=== PATIENT | female | born 2000 | race Two or more races ===

== ENCOUNTER 2019-08-21 11:30 | Emergency (ER) | payer OTHER, SELFPAY ==
[2019-08-21] VITALS (15 sets, daily range): BP systolic 111–198; BP diastolic 55–102; PULSE 79–120; RESP 16–22; TEMP 36.6–37.2; O2SAT 94–99; BMI 45.6
--- NOTE | 2019-08-21 11:49 | ECG_ITS ---
APPROVED REPORT Exam: Resting ECG HR:114 bpm ECG Measurements Heart Rate 114 AXES [place] 134 P 38 QRSd 88 QRS 36 QT 332 T 13 QTc 457 <Conclusion> Sinus tachycardia Otherwise normal ECG Electronically signed by : Jorge Falcon, 08/22/2019 17:17:27
--- NOTE | 2019-08-21 11:51 | HMH.EDGENADL ---
ED Disposition Clinical Impression: Depressive disorder Drug overdose, multiple drugs Qualifiers: Encounter type: initial encounter Injury intent: intentional self-harm Qualified Code(s): T50.912A - Poisoning by multiple unspecified drugs, medicaments and biological substances, intentional self-harm, initial encounter Disposition: Xfer Psychiatric Hosp Condition on Discharge: Good Referrals: Provider,Referral, [Primary Care Provider] - - Critical Care Critical Care Time: No Attestation: On 08/21/19, the high probability of a clinically significant, sudden or life threatening deterioration of the following system(s) required my full and direct attention, intervention and personal management. The time I documented below is in addition to time spent performing reported procedures but includes the following listed in this critical care notation. Medical Decision Making - Joaquin Inquiry Pt receiving controlled substance: No Vital Signs: 08/21/19 11:31 08/21/19 12:29 08/21/19 12:55 Temperature 98.9 F Temperature Source Oral Pulse Rate [Left Radial] 120 H 98 H 111 H Respiratory Rate 18 16 16 Blood Pressure [Right Arm] 124/91 H 198/102 H 124/81 Blood Pressure Mean [Right Arm] 102 134 95 Blood Pressure Source [Right Arm] Automatic Cuff Automatic Cuff Blood Pressure Position [Right Arm] Sitting Supine Supine 02 Sat by Pulse Oximetry 99 97 97 Oxygen Delivery Method Room Air Room Air Room Air 08/21/19 13:28 08/21/19 13:55 08/21/19 14:35 Temperature Temperature Source Pulse Rate [Left Radial] 92 H 102 H 93 H Respiratory Rate 16 20 16 Blood Pressure [Right Arm] 152/96 H 122/55 L 122/55 L Blood Pressure Mean [Right Arm] 114 77 77 Blood Pressure Source [Right Arm] Automatic Cuff Automatic Cuff Automatic Cuff Blood Pressure Position [Right Arm] Supine Supine Supine 02 Sat by Pulse Oximetry 97 95 94 L Oxygen Delivery Method Room Air Room Air Room Air 08/21/19 15:00 08/21/19 15:30 08/21/19 16:00 Temperature Temperature Source Pulse Rate [Left Radial] 100 H 93 H 92 H Respiratory Rate 22 20 Blood Pressure [Right Arm] 133/78 124/78 119/75 Blood Pressure Mean [Right Arm] 96 93 89 Blood Pressure Source [Right Arm] Automatic Cuff Automatic Cuff Blood Pressure Position [Right Arm] Supine Supine 02 Sat by Pulse Oximetry 98 97 97 Oxygen Delivery Method Room Air Room Air Room Air 08/21/19 16:30 08/21/19 17:00 08/21/19 17:28 Temperature Temperature Source Pulse Rate [Left Radial] 86 93 H 98 H Respiratory Rate 22 20 16 Blood Pressure [Right Arm] 111/72 115/66 115/66 Blood Pressure Mean [Right Arm] 85 82 82 Blood Pressure Source [Right Arm] Automatic Cuff Automatic Cuff Automatic Cuff Blood Pressure Position [Right Arm] Supine Supine Supine 02 Sat by Pulse Oximetry 95 95 96 Oxygen Delivery Method Room Air Room Air Room Air 08/21/19 18:00 08/21/19 18:30 Temperature Temperature Source Pulse Rate [Left Radial] 87 86 Respiratory Rate 16 Blood Pressure [Right Arm] 126/89 126/89 Blood Pressure Mean [Right Arm] 101 101 Blood Pressure Source [Right Arm] Automatic Cuff Automatic Cuff Blood Pressure Position [Right Arm] Supine Supine 02 Sat by Pulse Oximetry 95 Oxygen Delivery Method Room Air - Lab Data Lab Results 08/21/19 12:00: WBC 11.5, RBC 4.53, Hgb 13.2, Hct 38.3, MCV 84.5, MCH 29.2, MCHC 34.6, RDW 13.4, Plt Count 203, MPV 8.9, Neut % (Auto) 59.2, Lymph % (Auto) 32.5, [place] % (Auto) 6.7, Eos % (Auto) 0.6, Baso % (Auto) 1.0, Neut # (Auto) 6.8, Lymph # (Auto) 3.7, [place] # (Auto) 0.8, Eos # (Auto) 0.1, Baso # (Auto) 0.1 08/21/19 12:00: Sodium 138, Potassium 4.0, Chloride 103, Carbon Dioxide 26, Anion Gap 13.0, BUN 11, Creatinine 0.50 L, Estimated Creat Clear 183, Estimated GFR 159, Est GFR ( Amer) 192, Glucose 101 H, Calcium 10.0, Total Bilirubin 0.5, AST 32, ALT 29, Alkaline Phosphatase 50, Total Protein 7.9, Albumin 4.4, Globulin 3.5 H, Albumin/Globulin Ratio 1.3, Salicylates
[2019-08-21 12:19] LABS: Chloride 103 mmol/L (98-107); Sodium 138 mmol/L (136-145)
[2019-08-21 12:22] LABS: Alanine Aminotransferase 29 U/L (12-78); Albumin Level 4.4 g/dl (3.5-5.0); Albumin/Globulin Ratio 1.3 (1.1-1.8); Alkaline Phosphatase 50 U/L (38-126); Aspartate Amino Transferase 32 U/L (14-36); Bilirubin,Total 0.5 mg/dl (0.2-1.3); Blood Urea Nitrogen 11 mg/dl (7-17); Carbon Dioxide 26 mmol/L (22.0-30.0); Creatinine Clearance Estimated 183 mL/min (50-200); Estimated Glomerular Filt Rate 159 ml/min (>60); GFR (African American) 192 ML/MIN (>60); Globulin 3.5 g/dL (1.3-3.2); Glucose 101 mg/dl (74-100); Total Protein,Serum 7.9 g/dl (6.3-8.2)
[2019-08-21 12:23] LABS: Acetaminophen < 10 ug/ml (10-30); Ethyl Alcohol < 10 mg/dl (0-10); Salicylate < 1.0 mg/dL (2.0-20.0)
[2019-08-21 12:26] LABS: Basophils # 0.1 K/mm3 (0-0.2); Eosinophils # 0.1 K/mm3 (0.0-0.4); Eosinophils % 0.6 % (0.1-12.0); Hematocrit 38.3 % (37.0-47.0); Hemoglobin 13.2 g/dL (12.2-16.2); Lymphocytes # 3.7 K/mm3 (0.7-4.5); Lymphocytes % 32.5 % (10-50); Mean Corpuscular HGB Conc 34.6 g/dL (31.8-35.4); Mean Corpuscular Hemoglobin 29.2 pg (27.0-31.2); Mean Corpuscular Volume 84.5 fl (81-99); Mean Platelet Volume 8.9 fl (7.4-10.4); Monocytes # 0.8 K/mm3 (0.1-1.0); Monocytes % 6.7 % (1.7-9.3); Neutrophils # 6.8 K/mm3 (1.8-7.8); Neutrophils % 59.2 % (37.0-80.0); Platelet Count 203 K/mm3 (142-424); Red Blood Count 4.53 M/mm3 (4.20-5.40); Red Cell Distribution Width 13.4 % (11.5-17.5); White Blood Count 11.5 K/mm3 (4.5-13.0)
[2019-08-21 12:46] LABS: Microscopic, Urine URINE MICROSCOPIC (MICROSCOPIC)
[2019-08-21 12:51] LABS: Appearance,Urine CLEAR (Clear); Bilirubin,Urine Negative (Negative); Blood, Urine TRACE-I (Negative); Color,Urine YELLOW (Yellow); Glucose,Urine (UA) Negative (Negative); Ketones,Urine Negative (Negative); Leukocyte Esterase,Urine 1+ (Negative); Nitrate,Urine Negative (Negative); Protein,Urine Negative (Negative); Urobilinogen,Urine 0.2 EU/dl (0.2)
[2019-08-21 12:52] LABS: Urine Pregnancy, HCG Qual. Negative (Negative)
[2019-08-21 13:00] LABS: Benzodiazepines Screen,Urine Negative ng/ml (<200)
[2019-08-21 13:01] LABS: Amphetamine/Metha Screen,Urine Negative ng/ml (<1000)
[2019-08-21 13:02] LABS: Barbiturates Screen,Urine Negative ng/ml (<200); Methadone Screen,Urine Negative ng/ml (<300)
[2019-08-21 13:03] LABS: Cannabinoid Screen,Urine Negative ng/ml (<50)
[2019-08-21 13:04] LABS: Cocaine Screen,Urine Negative ng/ml (<300); Opiate Screen,Urine Negative ng/ml (<300)
[2019-08-21 13:05] LABS: Phencyclidine Screen,Urine Negative ng/ml (<25)
--- NOTE | 2019-08-21 13:05 | PC.NURSE ---
spoke with alex at poison control. due to patient consuming meds approx 12 hours ago, no recommendations at this time other than psych assist and eval.
[2019-08-21 13:14] LABS: Bacteria,Urine Trace /lpf
--- NOTE | 2019-08-21 13:15 | PC.NURSE ---
notified the [facility] of request for zoom assessment. the [facility] states they will call around 2 pm today for a phone assessment.
--- NOTE | 2019-08-21 14:00 | PC.NURSE ---
the [facility] calls and states they are trying to find an inspecting and testing lead hand and they will call back for assessment.
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
--- NOTE | 2019-08-21 16:55 | PC.NURSE ---
called the [facility] to check on status of eval. the [facility] states that they have been unsuccessful in finding their own social media senior associate and they are not allowed to use ours. the [facility] has no further insight or recommendation concerning patient care/treatment. dr corona notified.
--- NOTE | 2019-08-21 17:10 | PC.NURSE ---
report called to shannan, receiving rn at [facility].
--- NOTE | 2019-08-21 17:19 | PC.NURSE ---
per dr corona patient is medically cleared. pt is willing to report to [facility] for voluntary evaluation. dispatch notified of need for transportation per dr corona request.
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
== END 2019-08-21 18:55 ==
PROVIDERS: Emergency Provider Emergency Medicine
DX: F32.9 Major depressive disorder, single episode, unspecified (principal); T42.4X2A Poisoning by benzodiazepines, intentional self-harm, initial encounter; T46.6X2A Poisoning by antihyperlipidemic and antiarteriosclerotic drugs, intentional self-harm, initial encounter; Y92.009 Unspecified place in unspecified non-institutional (private) residence as the place of occurrence of the external cause
CPT/HCPCS: 80053; 80305; 80329; 81001; 81025; 85025; 87086; 87088; 87186; 93005; 99284

== ENCOUNTER 2019-12-15 11:13 | Emergency (ER) | payer OTHER, SELFPAY ==
[2019-12-15 11:20] VITALS: BP 132/90; PULSE 76; RESP 18; TEMP 36.8; O2SAT 97; BMI 42.5
--- NOTE | 2019-12-15 11:23 | HMH.EDGENADL ---
ED Disposition Clinical Impression: Viral illness Disposition: Home, Self-Care Condition on Discharge: Good Instructions: DI for Vomiting -- Adult, DI for Fever (Symptom) -- Adult Additional Instructions: Call back to the emergency room in 2 hours for your COVID test result. Off work for 2 days. Zofran as needed for nausea and vomiting. Acetaminophen for fever. Aloe up with primary care provider if not improved in 2 to 3 days. Prescriptions: Ondansetron [Zofran 4mg ODT] 4 mg PO TIDP PRN #10 tab.rapdis PRN Reason: Nausea And Vomiting Prescription Printed Referrals: PCP,No [Primary Care Provider] - - Critical Care Critical Care Time: No Attestation: On 12/15/19, the high probability of a clinically significant, sudden or life threatening deterioration of the following system(s) required my full and direct attention, intervention and personal management. The time I documented below is in addition to time spent performing reported procedures but includes the following listed in this critical care notation. Medical Decision Making - Joaquin Inquiry Pt receiving controlled substance: No Vital Signs: 12/15/19 11:20 12/15/19 11:43 12/15/19 12:13 Temperature 98.2 F Temperature Source Oral Pulse Rate [Right Radial] 76 88 83 Respiratory Rate 18 18 20 Blood Pressure [Right Arm] 132/90 136/83 111/88 Blood Pressure Mean [Right Arm] 104 100 95 Blood Pressure Source [Right Arm] Automatic Cuff Automatic Cuff Automatic Cuff Blood Pressure Position [Right Arm] Sitting Sitting Sitting 02 Sat by Pulse Oximetry 97 96 97 Oxygen Delivery Method Room Air Room Air Room Air 12/15/19 12:30 Temperature Temperature Source Pulse Rate [Right Radial] 84 Respiratory Rate 20 Blood Pressure [Right Arm] 124/68 Blood Pressure Mean [Right Arm] 86 Blood Pressure Source [Right Arm] Automatic Cuff Blood Pressure Position [Right Arm] Sitting 02 Sat by Pulse Oximetry 98 Oxygen Delivery Method Room Air - Lab Data Lab Results 12/15/19 11:25: WBC 7.7, RBC 4.92, Hgb 14.7, Hct 41.6, MCV 84.6, MCH 29.9, MCHC 35.3, RDW 13.0, Plt Count 201, MPV 8.8, Neut % (Auto) 47.7, Lymph % (Auto) 45.0, [place] % (Auto) 4.8, Eos % (Auto) 2.2, Baso % (Auto) 0.3, Neut # (Auto) 3.7, Lymph # (Auto) 3.5, [place] # (Auto) 0.4, Eos # (Auto) 0.2, Baso # (Auto) 0.0 12/15/19 11:25: Urine HCG, Qual Negative 12/15/19 11:25: Sodium 140, Potassium 4.2, Chloride 103, Carbon Dioxide 26, Anion Gap 15.2 H, BUN 16, Creatinine 0.40 L, Estimated Creat Clear 243, Estimated GFR 203, Est GFR ( Amer) 246, Glucose 111 H, Calcium 9.7, Total Bilirubin 0.5, AST 40 H, ALT 37, Alkaline Phosphatase 55, Total Protein 8.4 H, Albumin 4.6, Globulin 3.8 H, Albumin/Globulin Ratio 1.2 12/15/19 11:42: Urine Color Yellow, Urine Appearance Clear, Urine pH 6.0, Ur Specific [place] 1.025, Urine Protein Negative, Urine Glucose (UA) Negative, Urine Ketones Negative, Urine Blood Negative, Urine Nitrate Negative, Urine Bilirubin Negative, Urine Urobilinogen 0.2, Ur Leukocyte Esterase Negative, Urine RBC None, Urine WBC 3-5, Ur Squamous Epith Cells 5-10, Urine Bacteria 1+ 12/15/19 11:45: Influenza Type A Ag Negative, Influenza Type B Ag Negative 12/15/19 11:45: Group A Strep Rapid Negative Result diagrams: 12/15/19 11:25 12/15/19 11:25 Orders (Tests/Meds): ORDERS Category Date Time Status Chest XR 2 view (NOT portable) [XR chest 2V] Stat Exams 12/15/19 11:28 Taken COVID [Coronavirus 19 Swab (OUTPT)] Routine Lab 12/15/19 11:45 Received Strep Screen Confirmation Stat Micro 12/15/19 11:45 Received - Radiology Data #1 Image(s): Chest Image Reviewed: Yes I reviewed the patient's radiology image Preliminary Findings: Normal/NAD General Adult HPI - General Stated complaint: vomiting fever Time Seen by Provider: 12/15/19 11:23 - History of Present Illness HPI narrative: 2-day history of fever and vomiting. Also has rhinorrhea, sore throat, and cough. Cesar
--- NOTE | 2019-12-15 11:28 | XR_ITS ---
PROCEDURE: XR CHEST 2V CLINICAL HISTORY: cough, fever COMPARISON: CR XR CHEST 2V from 02/18/2019 FINDINGS: The cardiomediastinal silhouette and pulmonary vascularity are within normal limits. The lungs are clear without infiltrates, suspicious nodules, or pleural effusions. No acute bony abnormalities. IMPRESSION: No acute findings. Dictated by: Dr. Roberto Anderson MD 12/15/2019 13:52 Dr. Roberto Anderson MD in [facility] 12/15/2019 13:52
[2019-12-15 11:41] LABS: Basophils % 0.3 % (0.1-2.0); Eosinophils # 0.2 K/mm3 (0.0-0.4); Eosinophils % 2.2 % (0.1-12.0); Hematocrit 41.6 % (37.0-47.0); Hemoglobin 14.7 g/dL (12.2-16.2); Lymphocytes # 3.5 K/mm3 (0.7-4.5); Mean Corpuscular HGB Conc 35.3 g/dL (31.8-35.4); Mean Corpuscular Hemoglobin 29.9 pg (27.0-31.2); Mean Corpuscular Volume 84.6 fl (81-99); Mean Platelet Volume 8.8 fl (7.4-10.4); Monocytes # 0.4 K/mm3 (0.1-1.0); Monocytes % 4.8 % (1.7-9.3); Neutrophils # 3.7 K/mm3 (1.8-7.8); Neutrophils % 47.7 % (37.0-80.0); Platelet Count 201 K/mm3 (142-424); Red Blood Count 4.92 M/mm3 (4.20-5.40); White Blood Count 7.7 K/mm3 (4.5-13.0)
[2019-12-15 11:42] LABS: Chloride 103 mmol/L (98-107); Sodium 140 mmol/L (136-145)
[2019-12-15 11:43] VITALS: BP 136/83; PULSE 88; RESP 18; O2SAT 96
[2019-12-15 11:43] LABS: Potassium 4.2 mmoL/L (3.5-5.1)
[2019-12-15 11:45] LABS: Alanine Aminotransferase 37 U/L (12-78); Albumin Level 4.6 g/dl (3.5-5.0); Albumin/Globulin Ratio 1.2 (1.1-1.8); Alkaline Phosphatase 55 U/L (38-126); Anion Gap 15.2 mEq/L (5-15); Aspartate Amino Transferase 40 U/L (14-36); Bilirubin,Total 0.5 mg/dl (0.2-1.3); Blood Urea Nitrogen 16 mg/dl (7-17); Calcium 9.7 mg/dl (8.4-10.2); Carbon Dioxide 26 mmol/L (22.0-30.0); Creatinine Clearance Estimated 243 mL/min (50-200); Estimated Glomerular Filt Rate 203 ml/min (>60); GFR (African American) 246 ML/MIN (>60); Globulin 3.8 g/dL (1.3-3.2); Glucose 111 mg/dl (74-100); Total Protein,Serum 8.4 g/dl (6.3-8.2)
[2019-12-15 11:45] LABS: Microscopic, Urine URINE MICROSCOPIC (MICROSCOPIC)
[2019-12-15 11:46] LABS: Appearance,Urine CLEAR (Clear); Bilirubin,Urine Negative (Negative); Blood, Urine Negative (Negative); Color,Urine YELLOW (Yellow); Glucose,Urine (UA) Negative (Negative); Ketones,Urine Negative (Negative); Leukocyte Esterase,Urine Negative (Negative); Nitrate,Urine Negative (Negative); Protein,Urine Negative (Negative); Specific Gravity, Urine 1.025 (1.005-1.030); Urobilinogen,Urine 0.2 EU/dl (0.2)
--- NOTE | 2019-12-15 11:47 | PC.NURSE ---
dairy equipment mechanic service on Ipad used for communication with pt.
[2019-12-15 11:53] LABS: Urine Pregnancy, HCG Qual. Negative (Negative)
[2019-12-15 12:00] LABS: Bacteria,Urine 1+ /lpf
[2019-12-15 12:00] LABS: Strep Scrn Group A (Rapid) Negative (Negative)
--- NOTE | 2019-12-15 12:12 | PC.NURSE ---
PT GOING FOR CHEST X RAY
[2019-12-15 12:13] VITALS: BP 111/88; PULSE 83; RESP 20; O2SAT 97
[2019-12-15 12:30] VITALS: BP 124/68; PULSE 84; RESP 20; O2SAT 98
[2019-12-15 13:22] VITALS: BP 124/68; PULSE 82; RESP 18; TEMP 36.8; O2SAT 97
== END 2019-12-15 13:22 | disposition home or self-care (01) ==
PROVIDERS: Emergency Provider Emergency Medicine
DX: B34.9 Viral infection, unspecified (principal); Z20.828 Contact with and (suspected) exposure to other viral communicable diseases
CPT/HCPCS: 71046; 80053; 81001; 81025; 85025; 87275; 87276; 87430; 99284; U0003

== ENCOUNTER → 2021-01-09 11:11 | Outpatient (CLI) | payer OTHER, SELFPAY | PROVIDERS: Visit Provider Nurse Practitioner Family | DX: Z20.822 Contact with and (suspected) exposure to COVID-19 (principal) | CPT/HCPCS: C9803; U0003; U0005 ==

== ENCOUNTER 2021-03-16 22:39 | Emergency (ER) | payer OTHER, SELFPAY ==
[2021-03-16 22:40] VITALS: BP 166/97; PULSE 101; RESP 20; TEMP 36.9; O2SAT 100; BMI 45.3
--- NOTE | 2021-03-16 23:00 | HMH.EDGENADL ---
ED Disposition Clinical Impression: Negative test Disposition: Home, Self-Care Condition on Discharge: Good Referrals: Provider,Referral, [Primary Care Provider] - - Critical Care Critical Care Time: No Attestation: On 03/16/21, the high probability of a clinically significant, sudden or life threatening deterioration of the following system(s) required my full and direct attention, intervention and personal management. The time I documented below is in addition to time spent performing reported procedures but includes the following listed in this critical care notation. Medical Decision Making - Medical Records Medical records reviewed: Yes: I reviewed the patient's medical records. - Joaquin Inquiry Pt receiving controlled substance: No Vital Signs: 03/16/21 22:40 Temperature 98.5 F Temperature Source Oral Pulse Rate [Right] 101 H Respiratory Rate 20 Blood Pressure [Right Arm] 166/97 H Blood Pressure Mean [Right Arm] 120 Blood Pressure Source [Right Arm] Automatic Cuff 02 Sat by Pulse Oximetry 100 Oxygen Delivery Method Room Air - Lab Data Lab results reviewed: Yes: I reviewed the patient's lab results. Lab Results 03/16/21 22:52: Urine Color Yellow, Urine Appearance Clear, Urine pH 6.0, Ur Specific [place] >= 1.030, Urine Protein Negative, Urine Glucose (UA) Negative, Urine Ketones Negative, Urine Blood Negative, Urine Nitrate Negative, Urine Bilirubin Negative, Urine Urobilinogen 0.2, Ur Leukocyte Esterase Negative, Urine RBC Occasional, Urine WBC 5-10, Ur Squamous Epith Cells 3-5, Urine Bacteria 1+ 03/16/21 22:52: Urine HCG, Qual Negative 03/16/21 23:05: Serum HCG, Qual Negative 03/16/21 23:11: WBC 10.8, RBC 4.84, Hgb 14.2, Hct 41.0, MCV 84.7, MCH 29.4, MCHC 34.7, RDW 13.2, Plt Count 296, MPV 9.0, Neut % (Auto) 57.7, Lymph % (Auto) 36.3, [place] % (Auto) 3.9, Eos % (Auto) 1.5, Baso % (Auto) 0.6, Neut # (Auto) 6.2, Lymph # (Auto) 3.9, [place] # (Auto) 0.4, Eos # (Auto) 0.2, Baso # (Auto) 0.1 03/16/21 23:11: Sodium 141, Potassium 4.1, Chloride 102, Carbon Dioxide 30, Anion Gap 13.1, BUN 14, Creatinine 0.70, Estimated Creat Clear 128, Estimated GFR 106, Est GFR ( Amer) 128, Glucose 112 H, Calcium 9.9, Total Bilirubin 0.2, AST 30, ALT 21, Alkaline Phosphatase 64, Total Protein 8.6 H, Albumin 4.7, Globulin 3.9 H, Albumin/Globulin Ratio 1.2, HCG, Quant < 2 03/16/21 23:11: Blood Type A Positive Result diagrams: 03/16/21 23:11 03/16/21 23:11 Orders (Tests/Meds): ORDERS Category Date Time Status Type and Screen Stat BBK 03/16/21 23:11 Results Medical Decision Narrative: Patient is a 20-year-old female with past medical history of miscarriage which she is currently presenting to the emergency department for vaginal bleeding as well as lower abdominal cramping. Differential diagnosis of patient includes ectopic , intrauterine , incomplete , hemorrhagic cystitis, urinary tract infection among others. Given this plan order CBC, CMP, urine, quantitative hCG, qualitative hCG, blood type. Pending the results of these labs, will possibly order a transvaginal ultrasound to further assess. Patient urine test, as well as serum test were negative. Patient UA is not consistent with an acute urinary tract infection, did not have nitrates had small amount of white blood cells. Discussed with the patient, patient will be discharged. Patient blood type is Rh+. General Adult HPI - General Stated complaint: 4 wk Preg with stomach pains Time Seen by Provider: 03/16/21 23:06 - History of Present Illness HPI narrative: Patient is a 20-year-old female presenting to the emergency department chief complaint of vaginal bleeding. Patient states that she tested positive for 4 on a urine test about weeks ago. She states that her last menstrual period was at the beginning of January however it was short and an abnormal one. Francisco Javier
[2021-03-16 23:01] LABS: Microscopic, Urine URINE MICROSCOPIC (MICROSCOPIC)
[2021-03-16 23:04] LABS: Appearance,Urine CLEAR (Clear); Bilirubin,Urine Negative (Negative); Blood, Urine Negative (Negative); Color,Urine YELLOW (Yellow); Glucose,Urine (UA) Negative (Negative); Ketones,Urine Negative (Negative); Leukocyte Esterase,Urine Negative (Negative); Nitrate,Urine Negative (Negative); Protein,Urine Negative (Negative); Specific Gravity, Urine >= 1.030 (1.005-1.030); Urobilinogen,Urine 0.2 EU/dl (0.2)
[2021-03-16 23:15] LABS: Urine Pregnancy, HCG Qual. Negative (Negative)
[2021-03-16 23:24] LABS: Bacteria,Urine 1+ /lpf; RBC,Urine Occasional #/hpf (0-3)
[2021-03-16 23:26] LABS: Chloride 102 mmol/L (98-107); Potassium 4.1 mmoL/L (3.5-5.1); Sodium 141 mmol/L (136-145)
[2021-03-16 23:28] LABS: Blood Urea Nitrogen 14 mg/dl (7-17); Creatinine Clearance Estimated 128 mL/min (50-200); Estimated Glomerular Filt Rate 106 ml/min (>60); GFR (African American) 128 ML/MIN (>60)
[2021-03-16 23:29] LABS: Alanine Aminotransferase 21 U/L (12-78); Albumin Level 4.7 g/dl (3.5-5.0); Albumin/Globulin Ratio 1.2 (1.1-1.8); Alkaline Phosphatase 64 U/L (38-126); Anion Gap 13.1 mEq/L (5-15); Aspartate Amino Transferase 30 U/L (14-36); Bilirubin,Total 0.2 mg/dl (0.2-1.3); Calcium 9.9 mg/dl (8.4-10.2); Carbon Dioxide 30 mmol/L (22.0-30.0); Globulin 3.9 g/dL (1.3-3.2); Glucose 112 mg/dl (74-100); Total Protein,Serum 8.6 g/dl (6.3-8.2)
[2021-03-16 23:32] LABS: Basophils # 0.1 K/mm3 (0-0.2); Basophils % 0.6 % (0.1-2.0); Eosinophils # 0.2 K/mm3 (0.0-0.4); Eosinophils % 1.5 % (0.1-12.0); Hemoglobin 14.2 g/dL (12.2-16.2); Lymphocytes # 3.9 K/mm3 (0.7-4.5); Lymphocytes % 36.3 % (10-50); Mean Corpuscular HGB Conc 34.7 g/dL (31.8-35.4); Mean Corpuscular Hemoglobin 29.4 pg (27.0-31.2); Mean Corpuscular Volume 84.7 fl (81-99); Monocytes # 0.4 K/mm3 (0.1-1.0); Monocytes % 3.9 % (1.7-9.3); Neutrophils # 6.2 K/mm3 (1.8-7.8); Neutrophils % 57.7 % (37.0-80.0); Platelet Count 296 K/mm3 (142-424); Red Blood Count 4.84 M/mm3 (4.20-5.40); Red Cell Distribution Width 13.2 % (11.5-17.5); White Blood Count 10.8 K/mm3 (4.8-10.8)
[2021-03-16 23:44] LABS: HCG Qualitative, Serum Negative (Negative)
[2021-03-16 23:46] LABS: HCG,Quantitative < 2 mIU/ml (0-5.42)
[2021-03-16 23:52] VITALS: BP 158/94; PULSE 90; RESP 18; TEMP 36.9; O2SAT 97
== END 2021-03-17 00:01 | disposition home or self-care (01) ==
PROVIDERS: Emergency Provider Emergency Medicine
DX: O20.9 Hemorrhage in early pregnancy, unspecified (principal); Z32.02 Encounter for pregnancy test, result negative
CPT/HCPCS: 80053; 81001; 81025; 84702; 84703; 85025; 86850; 99282

== ENCOUNTER 2021-04-30 12:59 | Emergency (ER) | payer OTHER, SELFPAY ==
[2021-04-30 14:51] VITALS: PULSE 77; RESP 18; TEMP 36.8; O2SAT 99; BMI 47.0
--- NOTE | 2021-04-30 14:59 | PC.NURSE ---
officer in with pt at this time.
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
[2021-04-30 15:54] LABS: Urine Pregnancy, HCG Qual. Negative (Negative)
--- NOTE | 2021-04-30 16:36 | PC.NURSE ---
Pt with Rad.
--- NOTE | 2021-04-30 17:00 | PC.NURSE ---
MD went into room to assess pt and pt told her she was suicidal. made nursing staff aware. There is a tech sitting 1-1. [id number] are filled out by .
--- NOTE | 2021-04-30 18:03 | PC.NURSE ---
Called and spoke with Expanding Machine Operator Oswaldo, he stated as soon as he finished eating his dinner he would be up here to sign paper work. aware.
--- NOTE | 2021-04-30 18:43 | INFXCTL.NOTE ---
Judge Chacon stopped in ER and signed papers 116 and [id number]
--- NOTE | 2021-04-30 18:48 | PC.NURSE ---
calling [facility] at this time.
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
--- NOTE | 2021-04-30 18:56 | PC.NURSE ---
SO deputy at bedside
[2021-04-30 19:03] VITALS: BP 149/100; PULSE 78; O2SAT 100
[2021-04-30 19:08] LABS: Basophils # 0.1 K/mm3 (0-0.2); Basophils % 1.3 % (0.1-2.0); Eosinophils # 0.2 K/mm3 (0.0-0.4); Eosinophils % 1.8 % (0.1-12.0); Hematocrit 43.2 % (37.0-47.0); Hemoglobin 14.2 g/dL (12.2-16.2); Lymphocytes % 30.5 % (10-50); Mean Corpuscular HGB Conc 32.8 g/dL (31.8-35.4); Mean Corpuscular Hemoglobin 28.7 pg (27.0-31.2); Mean Corpuscular Volume 87.5 fl (81-99); Mean Platelet Volume 9.1 fl (7.4-10.4); Monocytes # 0.4 K/mm3 (0.1-1.0); Monocytes % 3.8 % (1.7-9.3); Neutrophils # 6.1 K/mm3 (1.8-7.8); Neutrophils % 62.6 % (37.0-80.0); Platelet Count 239 K/mm3 (142-424); Red Blood Count 4.93 M/mm3 (4.20-5.40); Red Cell Distribution Width 13.8 % (11.5-17.5); White Blood Count 9.8 K/mm3 (4.8-10.8)
[2021-04-30 19:13] LABS: Chloride 103 mmol/L (98-107); Sodium 138 mmol/L (136-145)
[2021-04-30 19:15] LABS: Alanine Aminotransferase 24 U/L (12-78); Aspartate Amino Transferase 34 U/L (14-36); Blood Urea Nitrogen 10 mg/dl (7-17); Creatinine Clearance Estimated 173 mL/min (50-200); Estimated Glomerular Filt Rate 156 ml/min (>60); GFR (African American) 188 ML/MIN (>60)
[2021-04-30 19:16] LABS: Albumin Level 4.4 g/dl (3.5-5.0); Albumin/Globulin Ratio 1.3 (1.1-1.8); Alkaline Phosphatase 56 U/L (38-126); Bilirubin,Total 0.3 mg/dl (0.2-1.3); Calcium 9.6 mg/dl (8.4-10.2); Carbon Dioxide 27 mmol/L (22.0-30.0); Globulin 3.5 g/dL (1.3-3.2); Glucose 98 mg/dl (74-100); Total Protein,Serum 7.9 g/dl (6.3-8.2)
[2021-04-30 19:20] LABS: Ethyl Alcohol < 10 mg/dl (0-10)
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
[2021-04-30 19:55] LABS: Coronavirus 19, PCR Not Detected (NotDetected); Influenza A, PCR Not Detected (NotDetected); Influenza B, PCR Not Detected (NotDetected)
[2021-04-30 20:47] LABS: Amphetamine/Metha Screen,Urine Negative ng/ml (<1000)
[2021-04-30 20:48] LABS: Barbiturates Screen,Urine Negative ng/ml (<200)
[2021-04-30 20:49] LABS: Benzodiazepines Screen,Urine Negative ng/ml (<200); Cannabinoid Screen,Urine Negative ng/ml (<50)
[2021-04-30 20:50] LABS: Cocaine Screen,Urine Negative ng/ml (<300)
[2021-04-30 20:51] LABS: Methadone Screen,Urine Negative ng/ml (<300); Opiate Screen,Urine Negative ng/ml (<300)
[2021-04-30 20:52] LABS: Phencyclidine Screen,Urine Negative ng/ml (<25)
[2021-04-30 21:20] VITALS: BP 147/72; PULSE 72; RESP 18; TEMP 36.8; O2SAT 100
== END 2021-04-30 21:22 ==
PROVIDERS: Emergency Provider Student in an Organized Health Care Education/Training Program
DX: S00.81XA Abrasion of other part of head, initial encounter (principal); S00.91XA Abrasion of unspecified part of head, initial encounter; S10.91XA Abrasion of unspecified part of neck, initial encounter; S50.811A Abrasion of right forearm, initial encounter; S70.311A Abrasion, right thigh, initial encounter; X99.8XXA Assault by other sharp object, initial encounter; Y92.019 Unspecified place in single-family (private) house as the place of occurrence of the external cause; Y04.2XXA Assault by strike against or bumped into by another person, initial encounter; E11.9 Type 2 diabetes mellitus without complications; Z20.822 Contact with and (suspected) exposure to COVID-19
CPT/HCPCS: 70450; 70486; 70498; 80053; 80305; 81025; 85025; 99284; C9803; Q9967; U0003; U0005

== ENCOUNTER 2021-05-29 12:00 | Emergency (ER) | payer OTHER, SELFPAY ==
[2021-05-29 12:01] VITALS: BP 132/85; PULSE 71; RESP 16; TEMP 36.7; O2SAT 98; BMI 48.4
--- NOTE | 2021-05-29 12:14 | PC.NURSE ---
Patient ambulatory to restroom
--- NOTE | 2021-05-29 12:18 | XR_ITS ---
FINAL REPORT CLINICAL HISTORY: cough COMPARISON: 12/15/2019 FINDINGS: TWO VIEWS OF THE CHEST The heart is normal in size. The mediastinum is unremarkable. The lungs are clear. There is no pneumothorax. IMPRESSION: No acute cardiopulmonary process. Reviewed, Interpreted and Dictated by Sonny Byrd MD Transcribed by Scarlet Narvaez Authenticated by Sonny Byrd MD on 05/29/2021 01:42:32 PM [facility]
[2021-05-29 13:11] LABS: Urine Pregnancy, HCG Qual. Negative (Negative)
--- NOTE | 2021-05-29 15:27 | HMH.EDGENADL ---
ED Disposition Clinical Impression: Suspected COVID-19 virus infection Disposition: Home, Self-Care Condition on Discharge: Good Instructions: DI for COVID-19 (Suspected or Confirmed ) Additional Instructions: Quarantine yourself until you obtain your COVID-19 test result. You will be called with the result. Rest, drink plenty of fluids. Tylenol or Ibuprofen for fever and/or aches and pains. Monitor your symptoms. IF YOU HAVE AN EMERGENCY WARNING SIGN (INCLUDING TROUBLE BREATHING), SEEK EMERGENCY MEDICAL CARE IMMEDIATELY. If your Covid test is positive: COVID-19 Isolation: People with COVID-19 should isolate for 5 days. Then if they are asymptomatic (no symptoms) or their symptoms are resolving (without fever for 24 hours), follow that by 5 days of wearing a mask when around others to minimize the risk of infecting people you encounter. If you test positive for COVID-19 and never develop symptoms, day 0 is the day of your positive viral test (based on the date you were tested) and day 1 is the first full day after your positive test. If you develop symptoms after testing positive, your 5-day isolation period must start over. Day 0 is your first day of symptoms. Day 1 is the first full day after your symptoms developed. What to do: Stay in a separate room from other household members, if possible. Use a separate bathroom, if possible. Avoid contact with other members of the household and pets. Don?t share personal household items, like cups, towels, and utensils. Wear a mask when around other people if able. Referrals: Provider,Referral, [Primary Care Provider] - - Critical Care Critical Care Time: No Attestation: On 05/29/21, the high probability of a clinically significant, sudden or life threatening deterioration of the following system(s) required my full and direct attention, intervention and personal management. The time I documented below is in addition to time spent performing reported procedures but includes the following listed in this critical care notation. Medical Decision Making - Joaquin Inquiry Pt receiving controlled substance: No Vital Signs: 05/29/21 12:01 Temperature 98.1 F Temperature Source Oral Pulse Rate [Radial] 71 Respiratory Rate 16 Blood Pressure [Right Arm] 132/85 Blood Pressure Mean [Right Arm] 100 Blood Pressure Position [Right Arm] Sitting 02 Sat by Pulse Oximetry 98 Oxygen Delivery Method Room Air - Lab Data Lab Results 05/29/21 12:14: Urine HCG, Qual Negative 05/29/21 12:52: Influenza Type A Ag Negative, Influenza Type B Ag Negative 05/29/21 15:47: POC Glucose 89 Orders (Tests/Meds): ORDERS Category Date Time Status Covid-19 Nasal PCR ([facility]) Routine Lab 05/29/21 12:52 Received - Radiology Data #1 Image(s): Chest Image Reviewed: Yes I have reviewed radiologist's interpretation Procedure(s): XR chest 2V Accession Number(s): [id number] cc: Sonny Byrd MD; Provider,Referral MD~ FINAL REPORT CLINICAL HISTORY: cough COMPARISON: 12/15/2019 FINDINGS: TWO VIEWS OF THE CHEST The heart is normal in size. The mediastinum is unremarkable. The lungs are clear. There is no pneumothorax. IMPRESSION: No acute cardiopulmonary process. Reviewed, Interpreted and Dictated by Sonny Byrd MD Transcribed by Scarlet Narvaez Authenticated by Sonny Byrd MD on 05/29/2021 01:42:32 PM [facility] General Adult HPI - General Chief complaint: Nausea/Vomiting/Diarrhea Stated complaint: headache,fever Time Seen by Provider: 05/29/21 15:28 Mode of Arrival: Ambulatory Limitations: No Limitations Description of Symptoms (Recalled from ER Triage Doc. by RN): to ed per pvt car with c/o cough, vomiting, nausea, fever starting today, pt states sister dx with covid today. - History of Present Illness HPI narrative: Patient states she has been sick since yesterday. Her sister was seen in the urgent cristofer
[2021-05-29 15:54] LABS: POC Glucose,Bedside 89 (70-110)
[2021-05-29 17:45] VITALS: BP 136/80; PULSE 71; RESP 16; TEMP 36.8; O2SAT 98
== END 2021-05-29 17:47 | disposition home or self-care (01) ==
PROVIDERS: Emergency Provider Emergency Medicine
DX: U07.1 COVID-19 (principal); E11.9 Type 2 diabetes mellitus without complications; Z79.84 Long term (current) use of oral hypoglycemic drugs
CPT/HCPCS: 71046; 81025; 82962; 87275; 87276; 99283; C9803; U0003; U0005

== ENCOUNTER 2022-01-29 09:58 | Emergency (ER) | payer OTHER, SELFPAY ==
[2022-01-29 10:48] VITALS: BP 145/90; PULSE 82; RESP 18; TEMP 36.9; O2SAT 98; BMI 48.2
--- NOTE | 2022-01-29 10:55 | EXP.UTC ---
Discharge Plan Disposition Patient Disposition: Home, Self-Care Condition: Good Prescriptions Prescriptions: New methocarbamol 500 mg tablet 500 mg PO TID PRN (Reason: muscle spasm) Qty: 15 0RF ibuprofen 600 mg tablet 600 mg PO Q6HP PRN (Reason: Moderate Pain) Qty: 20 0RF No Action metformin 850 mg tablet 850 mg PO DAILY norgestimate-ethinyl estradiol [Sprintec (28)] 0.25-35 mg-mcg tablet 1 tab PO DAILY Qty: 28 5RF sertraline 100 MG tablet 100 mg PO DAILY Referrals Follow up/Referrals: Provider,Referral, MD [Primary Care Provider] - See instructions Activity Restrictions/Add. Instructions Additional Instructions/Restrictions: *Ibuprofen south 6 hours with meal as needed for pain/inflammation *Remember you had a Toradol shot in the clinic today, which is similar to Motrin *Not additional anti-inflammatory like motrin, aleve, advil with the above amount of ibuprofen. You can still take Tylenol every 4 hours as needed if you need something else for pain *Ice 20 minutes every 2 hours for the first 48 hours after the initial injury followed by moist heat every 20 minutes 3-4 times a day to affected area *Muscle relaxer every 8 hours as needed for muscle spasms but remember, it WILL cause drowsiness You cannot take it and drive, operate machinery or care for small children. *Keep this area active, no movement leads to more stiffness, However take it easy and avoid heavy lifting pushing or pulling *Follow up with you family doctor if no improvement for further treatment Clinical Impressions Clinical Impression: Sciatica Stand Alone Forms Stand Alone Forms: Work/School Release Instructions Patient Instructions: DI for Low Back Pain, Low Back Pain, DI for Sciatica Discharge ED Provider: Kristi Menon [facility] General Stated complaint: back pain, no accident Mode of Arrival: Ambulatory Source of Information: Patient Limitations: No Limitations Time Seen by Provider: 01/29/22 10:55 Description of Symptoms (Recalled from Triage Doc. 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 State that she has been having achy like pain on and off in her lower back for a couple of weeks then yesterday pain was worse on right side going into right buttock and upper leg pain worse with raising hte leg and walking Denies known injury Denies loss of control of bowel or bladder Related Data Home Medications Medication Instructions Recorded Confirmed metformin 850 mg tablet 850 mg PO DAILY Diabetes 01/09/21 04/29/21 sertraline 100 mg tablet 100 mg PO DAILY Depression 03/16/21 04/29/21 Previous Rx's Medication Instructions Recorded norgestimate 0.25 mg-ethinyl 1 tab PO DAILY #28 tabs 04/29/21 estradiol 35 mcg tablet (Sprintec (28)) ibuprofen 600 mg tablet 600 mg PO Q6HP PRN Moderate Pain 01/29/22 #20 tabs methocarbamol 500 mg tablet 500 mg PO TID PRN muscle spasm #15 01/29/22 tabs Allergies Allergy/AdvReac Type Severity Reaction Status Date / Time No Known Allergies Allergy Verified 04/29/21 14:57 Worker's Comp Is this a Worker's Comp case?: No PFSH PFSH Social History Smoking Status: Never smoker alcohol intake: current current occupational status: employed Travel in the last 8 weeks: None ROS Obtained: Yes All systems reviewed & no additional complaints except as documented and Yes Systems reviewed as appropriate & no additional complaints except as documented Constitutional Constitutional: Reports system reviewed and no additional complaint
[2022-01-29 11:19] LABS: UTC Pregnancy Test, Urine Negative (Negative)
[2022-01-29 11:50] VITALS: BP 145/90; PULSE 82; RESP 18; TEMP 36.9; O2SAT 98
== END 2022-01-29 11:51 | disposition home or self-care (01) ==
PROVIDERS: Emergency Provider Nurse Practitioner
DX: M62.838 Other muscle spasm (principal); M51.17 Intervertebral disc disorders with radiculopathy, lumbosacral region; Z79.1 Long term (current) use of non-steroidal anti-inflammatories (NSAID); Z79.84 Long term (current) use of oral hypoglycemic drugs; Z79.899 Other long term (current) drug therapy; Z79.890 Hormone replacement therapy
CPT/HCPCS: 81025; 99213; G0463

== ENCOUNTER → 2022-05-22 12:16 | Outpatient (CLI) | payer OTHER, SELFPAY ==
--- NOTE | 2022-05-22 | XR_ITS ---
PROCEDURE INFORMATION: Exam: XR Left Ankle Exam date and time: 05/22/2022 12:22 PM Age: 21 years old Clinical indication: Pain; Ankle and foot; Left; Additional info: Foot pain TECHNIQUE: Imaging protocol: Radiologic exam of the Left ankle. Views: 3 or more views. COMPARISON: No relevant prior studies available. FINDINGS: Bones/joints: Subtle nondisplaced avulsion fracture of navicular bone along dorsal aspect best seen on sagittal projection. Soft tissues: Normal. IMPRESSION: Nondisplaced navicular bone avulsion fracture.
== END ==
PROVIDERS: PCP Nurse Practitioner Family; Visit Provider Nurse Practitioner Family
DX: M25.572 Pain in left ankle and joints of left foot (principal)
CPT/HCPCS: 73610

== ENCOUNTER 2022-06-16 13:00 | Outpatient (RCR) | payer OTHER, SELFPAY ==
--- NOTE | 2022-06-02 09:51 | HMH.PTOPEV ---
PT Outpatient Evaluation Rehab PT Outpatient Evaluation Start: 06/02/22 09:33 Freq: Status: Active Protocol: Document 06/02/22 09:34 TARAS (Rec: 06/02/22 09:51 TARAS [id number]) E-signed By Akin Messer, PT Outpatient Therapy Subjective History Subjective History Patient is a 21 year old female presenting to outpatient PT with reports of L foot/ankle pain. Symptoms of insidious starting approx 8 months ago. Most recent imaging indicates nondisplaced avulsion fracture of the L navicular. Comorbidities include hx of diabetes. Chief Complaint Pain,Clicks,Weakness Symptom Type Ache,Dull Symptoms Relieved By Rest/Positioning,Prescription Meds Symptoms Aggravated By Standing,Physical Activity, Walking Prior Functional Limitations None Current Functional Limitations Housework,Standing,Walking Symptom Description Constant but Variable Level of pain today (0-10) 5 Pain scale - at its best (0-10) 4 Pain scale - at its worst (0-10) 8 Ankle/Foot Eval Gait Observation General Gait Pattern Observation No Deviations/Normal Palpation Tenderness left Ankle/Foot Palpation Findings Tenderness Ankle/Foot Palpation Overall Comment L navicular 2/4 ROM Ankle/Foot Dorsiflexion w/Knee Extended 7 Active Range Motion (degrees) Ankle/Foot Plantar Flexion Active Range WNL of Motion (degrees) Ankle/Foot Eversion Active Range of 23 Motion (degrees) Ankle/Foot Inversion Active Range of WNL Motion (degrees) Ankle/Foot ROM Limitations Soft Tissue Tightness Great Toe ROM Reason Not Measured Within Functional Limits MMT Ankle Dorsiflexion Strength Grade 5 Normal Ankle Plantarflexion Strength Grade 5 Normal Foot Eversion Strength Grade 4 Good Foot Inversion Strength Grade 4 Good Special Tests Ankle Anterior Drawer Test Negative Left Ankle Eversion Test Negative Left Foot Interdigital Neuroma Test Negative Left Outpatient Therapy Assessment Impairments Problems/Impairmments Palpation Tenderness,Impaired Range of Motion,Impaired Strength,Impaired Walking, Impaired Standing,Impaired Household Care,Impaired Stair Climbing,Impaired Incline Stepping,Impaired Stepping on Uneven Surface,Subjective C/O
== END 2022-06-16 13:05 | disposition home or self-care (01) ==
LOC: PT 13:00
PROVIDERS: PCP Nurse Practitioner Family; Visit Provider Orthopaedic Surgery
DX: S92.252A Displaced fracture of navicular [scaphoid] of left foot, initial encounter for closed fracture (principal)
CPT/HCPCS: 97110; 97163; 97530

== ENCOUNTER → 2022-10-07 13:59 | Outpatient (CLI) | payer OTHER, SELFPAY ==
--- NOTE | 2022-10-07 14:05 | XR_ITS ---
FINAL REPORT CLINICAL HISTORY: OBESITY FINDINGS: There is no evidence of effusion or other pleural disease. The mediastinum has a normal appearance. The cardiac silhouette is unremarkable. IMPRESSION: Unremarkable chest exam. Reviewed, Interpreted and Dictated by Cj Sultana MD Transcribed by Mean Villela Authenticated and [facility]
== END ==
PROVIDERS: PCP Nurse Practitioner Family; Visit Provider Physician Assistant
DX: E66.9 Obesity, unspecified (principal); Z68.43 Body mass index [BMI] 50.0-59.9, adult
CPT/HCPCS: 71046

== ENCOUNTER → 2022-10-29 07:03 | Outpatient (CLI) | payer OTHER, SELFPAY ==
[2022-10-29 07:15] VITALS: BP 117/75; PULSE 87; RESP 18; TEMP 36.2; O2SAT 97; BMI 53.6
[2022-10-29 07:20] VITALS: BP 117/75; PULSE 90; RESP 18; O2SAT 97
[2022-10-29 07:43] LABS: HCG Qualitative, Serum Negative (Negative)
[2022-10-29 08:00] VITALS: BP 121/79; PULSE 77; RESP 18; O2SAT 98
[2022-10-29 08:12] LABS: Chloride 102 mmol/L (98-107); Sodium 140 mmol/L (136-145)
[2022-10-29 08:15] LABS: Blood Urea Nitrogen 18 mg/dl (7-17); Calcium 8.9 mg/dl (8.4-10.2); Carbon Dioxide 27 mmol/L (22.0-30.0); Creatinine Clearance Estimated 164 mL/min (50-200); Estimated Glomerular Filt Rate 153 ml/min (>60); GFR (African American) 185 ML/MIN (>60); Glucose 107 mg/dl (74-100)
[2022-10-29 08:30] VITALS: BP 120/58; PULSE 71; RESP 18; O2SAT 98
[2022-10-29 08:45] VITALS: BP 127/67; PULSE 71; RESP 18; O2SAT 98
[2022-10-29 09:40] VITALS: BP 118/72; PULSE 72; RESP 18; O2SAT 98
--- NOTE | 2022-10-29 10:09 | PC.NURSE ---
0845- Pt's hr remains in the 70's after receiving Metoprolol 300mg po and 15 mg iv. BP 118/72. Tiffanie March consulted and orders received for a NS bolus.
== END ==
PROVIDERS: PCP Nurse Practitioner Family; Visit Provider Nurse Practitioner Family
DX: R94.31 Abnormal electrocardiogram [ECG] [EKG] (principal); I10 Essential (primary) hypertension; Z01.810 Encounter for preprocedural cardiovascular examination; E13.69 Other specified diabetes mellitus with other specified complication; Z79.84 Long term (current) use of oral hypoglycemic drugs
CPT/HCPCS: 75574; 80048; 84703; 93306; Q9967

== ENCOUNTER → 2022-12-23 23:48 | Outpatient (CLI) | payer SELFPAY | PROVIDERS: PCP Nurse Practitioner Family; Visit Provider Student in an Organized Health Care Education/Training Program | DX: J02.9 Acute pharyngitis, unspecified (principal) ==

== ENCOUNTER 2023-05-29 22:00 | Emergency (ER) | payer OTHER, SELFPAY ==
[2023-05-29 22:02] VITALS: BP 157/85; PULSE 86; RESP 16; TEMP 36.8; O2SAT 100; BMI 53.2
--- NOTE | 2023-05-29 22:16 | ED_ITS ---
Discharge Plan Disposition Patient Disposition: Home, Self-Care Prescriptions Prescriptions: New sulfamethoxazole-trimethoprim [Bactrim DS] 800-160 mg tablet 1 tab PO BID 10 Days Qty: 20 0RF cephalexin 500 mg capsule 500 mg PO QID 10 Days Qty: 40 0RF No Action metformin 850 mg tablet 850 mg PO DAILY valsartan 80 mg tablet 80 mg PO DAILY lbwezcyzexqysor-skpujkixz-TX [Bromfed DM] 2-30-10 mg/5 mL syrup 5 ml PO Q4-6H PRN (Reason: cold symptoms) Qty: 118 0RF Referrals Follow up/Referrals: Provider,Referral, MD [Primary Care Provider] - See instructions Activity Restrictions/Add. Instructions Additional Instructions/Restrictions: There is an area of swelling induration and tenderness on the posterior aspect of her neck bedside ultrasound did not reveal a drainable fluid collection working diagnosis is cellulitis but this could be the early development of an abscess. You should notice an improvement in 2 to 3 days with antibiotics. I also recommend that you use a warm compress which is a clean washcloth soaked in warm water then run out in direct contact with this area for 5 minutes 3 times a day over the next 7 days. Return with any significant worsening of your symptoms. Clinical Impressions Clinical Impression: Cellulitis of neck Instructions Patient Instructions: DI for Skin Abscess Discharge ED Provider: Shahida Roger General Adult HPI General Chief complaint: Skin/Abscess/Foreign Body Stated complaint: neck pain on left side Time Seen by Provider: 05/29/23 22:06 Mode of Arrival: Ambulatory Source of Information: Patient Limitations: No Limitations Description of Symptoms (Recalled from ER Triage Doc. by RN): Patient reports left side, posterior neck pain that started on Tuesday with a lump. Patient denies injury. History of Present Illness HPI narrative: Patient is a 22-year-old female without any significant past medical history presents today with posterior lateral left-sided neck pain swelling and tenderness over the last several days. States she thought it may have been a pimple she tried to pop it but nothing came out. No fevers or chills or any other symptoms. Related Data Home Medications Medication Instructions Recorded Confirmed metformin 850 mg tablet 850 mg PO DAILY Diabetes 01/09/21 12/23/22 valsartan 80 mg tablet 80 mg PO DAILY Hypertension 10/14/22 12/23/22 Previous Rx's Medication Instructions Recorded hbmcrzqmwinnsws-nyjkmvkqvskintk-VN 5 ml PO Q4-6H PRN cold symptoms 12/23/22 2 mg-30 mg-10 mg/5 mL oral syrup #118 mL (Bromfed DM) cephalexin 500 mg capsule 500 mg PO QID 10 days #40 caps 05/29/23 sulfamethoxazole 800 1 tab PO BID 10 days #20 tabs 05/29/23 mg-trimethoprim 160 mg tablet (Bactrim DS) Allergies Allergy/AdvReac Type Severity Reaction Status Date / Time No Known Allergies Allergy Verified 12/23/22 09:05 [facility] Disclaimer: The information contained in this section may have been updated after the patient was seen, as this information can be updated by other users. Medical History Diabetes mellitus, type 2 Hypertension No significant past medical history No significant past medical history Family History Other Family history of diabetes mellitus type II Family history of hypertension Social History Smoking Status: Never smoker alcohol intake: current current occupational status: employed Travel in the last 8 weeks: None ROS Obtained: Yes All systems reviewed & no additional complaints except as documented Physical Exam General General appearance: alert Expanded Neck Exam Neck image: 1. 3 x 1 centimeters area of induration tenderness and swelling no significant erythema or fluctuance Respiratory Respiratory exam: Present normal lung sounds bilaterally Cardiovascular Cardiovascular exam: Present regular rate; Absent tachycardia Neurological Exam Neurological exam: Present alert and oriented X3 Medical Decision Making Joaquin Inquiry Pt receiving controlled substance: No Vital Signs: 05/29/23 22:02 Temperature 98.3 F Temperature Source Oral Pulse Rate [Left Radial] 86 Respiratory Rate 16 Blood Pressure [Right Radial Artery] 157/85 H Blood Pressure Mean [Right Radial Artery] 109 Blood Pressure Source [Right Radial Artery] Automatic Cuff Blood Pressure Position [Right Radial Artery] Sitting 02 Sat by Pulse Oximetry 100 Oxygen Delivery Method Room Air Orders (Tests/Meds): ED MEDICATIONS Generic Name Dose Route Start Last Admin Trade Name Freq PRN Reason Stop Dose Admin Cephalexin HCl 500 mg 05/29/23 22:13 Cephalexin 500mg Capsule PO 05/29/23 22:14 ONCE ONE Trimethoprim/Sulfamethoxazole 1 each 05/29/23 22:13 Sulfa/Trimethoprim 1 Tablet PO 05/29/23 22:14 ONCE ONE ORDERS Category Date Time Status POCUS Point of Care (ER Only) Stat Exams 05/29/23 22:07 Ordered Medical Decision Narrative: History physical as above. Bedside ultrasound did not demonstrate a drainable fluid collection this is not consistent with an abscess however given the fact that this is new in onset over the last several days and is indurated and tender this is most likely infectious in nature. Could be early development of an abscess Bactrim and Keflex therefore administered in the emergency department and a prescription was sent. Remains some diagnostic uncertainty she has been advised that this should improve in 2 to 3 days if this is going to she is also been advised to do warm compresses she was discharged in stable condition with return precautions emphasized. Procedures Miscellaneous Procedure Procedure Performed: Limited soft tissue ultrasound Indication: Soft tissue swelling and tenderness Identified structures: Location: Neck Findings: Indurated tissue but no significant cobblestoning no definitive drainable fluid collection Impression: Normal limited soft tissue ultrasound without any evidence of drainable fluid collection or abscess Images were saved to permanent archive The study was technically adequate Soft Tissue CPT Codes: CPT Neck: 37893-78 CPT Upper extremity: 81976-59 CPT Axilla: 64249-85 CPT Chest wall: 59057-75 CPT Breast: 58866-88-EP/LT (complete), 58316-91-UA/LT (limited), CPT Upper Back: 02214-48 CPT Lower Back: 34709-34 CPT Abdominal Wall: 71178-00 CPT Pelvic Wall: 34059-29 CPT Lower Extremity: 93151-17 CPT Other Soft Tissue: 36173-95 This study was performed by me, and I personally interpreted all images/videos. Based on my clinical judgement, these images were added and did not necessitate further imaging. Critical Care Critical Care Time Critical Care Time: No
[2023-05-29] MEDS: SULFA/TRIMETHOPRIM 1 TABLET 1 EACH PO (22:17)
[2023-05-29] MEDS: cephALEXin 500MG CAPSULE 500 MG PO (22:18)
[2023-05-29 22:23] VITALS: BP 157/85; PULSE 86; RESP 16; TEMP 36.8; O2SAT 100
== END 2023-05-29 22:25 | disposition home or self-care (01) ==
PROVIDERS: Emergency Provider Student in an Organized Health Care Education/Training Program
DX: L03.221 Cellulitis of neck (principal); M54.2 Cervicalgia; E11.9 Type 2 diabetes mellitus without complications; I10 Essential (primary) hypertension
CPT/HCPCS: 99284

== ENCOUNTER 2023-06-21 11:50 | Outpatient (CLI) | payer OTHER, SELFPAY ==
--- NOTE | 2023-06-21 12:04 | XR_ITS ---
FINAL REPORT TECHNIQUE: Chest PA & Lateral CLINICAL HISTORY: PRE-SURGERY EVALUATION COMPARISON: None FINDINGS: 2 views of the chest were performed. The heart size is normal. The mediastinum is within normal limits. There is no acute cardiopulmonary process. There are no pleural effusions. There is no pneumothorax. The bony thorax appears intact. IMPRESSION: No acute cardiopulmonary process. Reviewed, Interpreted and Dictated by Sonny Byrd MD Transcribed by Mena Villela Authenticated and [facility]
[2023-06-21 12:49] LABS: Basophils % 0.4 % (0.1-2.0); Eosinophils # 0.2 K/mm3 (0.0-0.4); Eosinophils % 2.1 % (0.1-12.0); Hemoglobin 13.9 g/dL (12.2-16.2); Lymphocytes # 2.8 K/mm3 (0.7-4.5); Lymphocytes % 32.9 % (10-50); Mean Corpuscular HGB Conc 34.8 g/dL (31.8-35.4); Mean Corpuscular Hemoglobin 29.6 pg (27.0-31.2); Mean Corpuscular Volume 85.2 fl (81-99); Mean Platelet Volume 9.3 fl (7.4-10.4); Monocytes # 0.4 K/mm3 (0.1-1.0); Monocytes % 4.5 % (1.7-9.3); Neutrophils # 5.1 K/mm3 (1.8-7.8); Neutrophils % 60.2 % (37.0-80.0); Platelet Count 195 K/mm3 (142-424); Red Cell Distribution Width 13.5 % (11.5-17.5); White Blood Count 8.4 K/mm3 (4.8-10.8)
[2023-06-21 13:01] LABS: Chloride 108 mmol/L (98-107); Potassium 4.7 mmoL/L (3.5-5.1); Sodium 139 mmol/L (136-145)
[2023-06-21 13:04] LABS: Alanine Aminotransferase 37 U/L (12-78); Albumin Level 4.4 g/dl (3.5-5.0); Albumin/Globulin Ratio 1.3 (1.1-1.8); Alkaline Phosphatase 56 U/L (38-126); Anion Gap 11.7 mEq/L (5-15); Aspartate Amino Transferase 59 U/L (14-36); Bilirubin,Total 0.8 mg/dl (0.2-1.3); Blood Urea Nitrogen 15 mg/dl (7-17); Calcium 9.4 mg/dl (8.4-10.2); Carbon Dioxide 24 mmol/L (22.0-30.0); Estimated Glomerular Filt Rate 198 ml/min (>60); GFR (African American) 239 ML/MIN (>60); Globulin 3.5 g/dL (1.3-3.2); Glucose 102 mg/dl (74-100); Iron 115 ug/dL (37-170); Total Protein,Serum 7.9 g/dl (6.3-8.2)
[2023-06-21 13:15] LABS: Total Iron Binding Capacity 396 ug/dL (265-497)
[2023-06-21 13:22] LABS: Free T4 (Free Thyroxine) 0.98 ng/dl (0.78-2.19)
[2023-06-21 13:23] LABS: 25-OH Vitamin D, Total 17.2 ng/mL (30-100)
[2023-06-21 13:36] LABS: Thyroid Stimulating Hormone 2.16 uIU/mL (0.465-4.68)
[2023-06-21 13:40] LABS: Ferritin 26.5 ng/ml (6.24-137)
[2023-06-21 17:07] LABS: Hemoglobin A1C 5.6 % (4.0-6.0)
[2023-06-25 16:35] LABS: Vitamin A 36.6 ug/dL (18.9-57.3); Vitamin E Alpha Tocopherol 9.8 mg/L (5.9-19.4); Vitamin E Gamma Tocopherol 1.7 mg/L (0.7-4.9)
[2023-06-27 12:09] LABS: Vitamin B1 133.1 nmol/L (66.5-200.0)
[2023-06-28 10:26] LABS: Methylmalonic Acid 110 nmol/L (0-378)
== END 2023-06-21 23:59 ==
LOC: LAB 11:52
PROVIDERS: PCP Nurse Practitioner Family; Visit Provider Physician Assistant
DX: Z01.818 Encounter for other preprocedural examination (principal); E55.9 Vitamin D deficiency, unspecified; E66.9 Obesity, unspecified; Z68.43 Body mass index [BMI] 50.0-59.9, adult
CPT/HCPCS: 36415; 71046; 80053; 82306; 82728; 82746; 83036; 83540; 83550; 83921; 84425; 84439; 84443; 84446; 84590; 85025

== ENCOUNTER 2023-08-16 08:09 | Outpatient (CLI) | payer OTHER, SELFPAY ==
[2023-08-16] MEDS: ALBUTEROL 0.083% 2.5 MG/3 ML NEB IH (08:56)
--- NOTE | 2023-08-16 08:56 | PC.NURSE ---
PFT and 6 Minute Walk Test completed without incident. Albuterol 0.083% given via HHN, per written protocol, Pt tolerated tx well.
== END 2023-08-16 23:59 | disposition home or self-care (01) ==
LOC: RT 08:09
PROVIDERS: PCP Nurse Practitioner Family; Visit Provider Nurse Practitioner Family
DX: Z01.818 Encounter for other preprocedural examination (principal); R06.02 Shortness of breath
CPT/HCPCS: 94060; 94618; 94726; 94729

== ENCOUNTER 2024-11-19 14:40 | Observation (INO) | payer OTHER, SELFPAY ==
--- OUTSIDE RECORDS SUMMARY | 2022-11-22 04:48 | XMS_ITS | Continuity of Care Document ---
Author Organization [facility] Address [address] [place] [address] Phone Care Team Providers Care Manager It Training Name Role Phone Dariel MSN, CATEGORY PLANNER, Jazmín Unavailable Unavai lable Allergies, Adverse Reactions, Alerts Substance Reaction Status Criticality No Known Allergies Active No Inform ation Medications Medication Instructions Dosage Effective Dates (start - stop) Status Comments valsartan 80 mg tablet take 1 tablet by oral route every day 80 MG - Active levothyroxine 50 mcg tablet take 1 tablet by oral route every day 2 hrs prior to other meds/food - Active Pristiq 50 mg tablet,extended release take 1 tablet by oral route every day 50 MG - Active metformin 850 mg tablet take one tablet daily - Active Advance Directives Directive Yes / No Effective Date File Name No Information Encounters Encounter Description Practice Location Reason(s) For Visit Diagnoses Date Provider [facility], [address] [place] [address], [facility], tel:[phone] No Information 3 Dariel Noyola. [address] [place], [place], [id number] , [place]. tel:[phone] [facility], [address] [place], [address], tel:[phone] [facility] [place] follow labs and surgical clearance (chief complaint) PrediabetesHypothyroidism , unspecifiedEssential hypertensionDepressionBod y mass index [BMI] 50.0-59.9, adultEncounter for other preprocedural examObesityMorbid (severe) obesity due to excess calories 3 Vieira Jazmín. [address], [place], [id number] , [place]. 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 [address], [place], [id number] , [place]. tel: [phone] [facility], [address] [place] [address], [facility], tel:[phone] [facility] [place] No Information 0 3 Vieira Jazmín. [address], [place], [id number] , [place]. tel: [phone] [facility], [address] [place] [address], [facility], tel:[phone] [facility] [place] follow up (chief complaint) Body mass index [BMI] 50.0-59.9, adultDepressionHypothyroi dism, unspecifiedEssential hypertension 0 8 3 Vieira Jazmín. [address], [place], [id number] , [place]. tel: [phone] [facility], [address] [place] [address], [facility], [place] tel:[phone] [facility] [place] follow up (chief complaint) Body mass index [BMI] 50.0-59.9, adultDepressionHypothyroi dism, unspecifiedEssential hypertension Fe-2 2 3 Vieira Jazmín. [address], [place], [id number] , [place]. tel: [phone] [facility], [address] [place] [address], [facility], tel:[phone] [facility] follow up xray (chief complaint) Pain in left footElevated BP reading w/o diagnosis of HTNBody mass index [BMI] 50.0-59.9, adultDepression 3 Vieira Jazmín. [address], [place], [id number] , [place]. tel:[phone] [facility], [address] [place] [address], [facility], tel:[phone] [facility] Left Foot Pain (chief complaint) Encounter for screening for depressionEncounter for screening examination for other mental health and behavioral disordersPain in left footPain in left ankleDepressionPrediabete sEncounter for immunizationElevated BP reading w/o diagnosis of HTN 3 Vieira Jazmín. [address], [place], [id number] , [place]. tel:[phone] [facility], [address] [place] [address], [facility], tel:[phone] [facility] ConstipationEncounter for test, result negativeOther seasonal allergic rhinitisFlatulenceDepress ionUnspecified abdominal painEncounter for screening for infections with a predominantly sexual mode of transmissionEncounter for screening for other bacterial diseasesEncounter for screening for malignant neoplasm of cervixEncounter for screeningPrediabetesHypot hyroidism, unspecifiedEncounter for screening for diseases of the blood and blood-forming organs and certain disorders involving the immune mechanismPersons encountering health services in other specified circumstancesSclerocystic ovary syndromeEncounter for screening for lipoid disordersEncounter for screening for nutritional disorderEncounter for screening for diabetes mellitusEncounter for screening for human immunodeficiency virus [HIV]Encounter for screening examination for other mental health and behavioral disordersEncounter for screening for depression 2 Vieira Jazmín. [address] [place], [id number] , . tel: [phone] [facility], [address] [place] [address], [facility], tel:[phone] [facility] No Information 2 Vieira Jazmín. [address], [place], [address] [place] [address] , . tel: [phone] [facility], [address] [place] [address], [facility], tel:[phone] [facility] No Information 1 Vieira Jazmín. [address], [place], [address] [place] [address] , . tel: [phone] [facility], [address] [place] [address], [facility], tel:[phone] [facility] No Information 1 Vieira Jazmín. [address] [place] [address], [id number] , . tel: [phone] [facility], [address] [place] [address], [facility], tel:[phone] [facility] No Information 1 Vieira Jazmín. [address] [place] [address], [address] [place] [address] , . tel: [phone] Family History Family Member Type Diagnosis Age At Onset Mother Problem Diabetes mellitus Mother Problem hypertension Mother Problem Alive and well Immunizations Vaccine Date Status Comments Influenza Flulaval administered Source: N ew Immunization Record SARS-COV-2 (COVID-19) vaccin e, mRNA, spike protein, LNP, bivalent booster, preservative free, 50 mcg/0.5 mL or 25 mcg/0.25 mL dose (Moderna) refused Source: New I mmunization Record Payers Payer name Insurance type Covered democrat ID Authoriza tion(s) [facility]- Medicaid Aetna [facility] [place] [id number] [facility]- Medicaid Aetna Wrap Payer [id number] [facility]- Medicaid Aetna [facility] [place] [id number] [facility]- Medicaid Aetna Wrap Payer [id number] Social History Type Description Quantity Date Captured Comments Alcohol Use Details Unknown Caffeine Use Details Unknown Tobacco Use Status No Information Smoking Status No Information Sex Female Sexual Orientation Straight or heterosexual Gender Identity Female Chief Complaint And Reason For Visit No Information Plan Of Treatment Date Type Action Status Goal Drug Abuse Scree honorio Test (DAST-10). Due on due Goal Generalized Anxi ety Disorder - 7 (LIDIA-7). Due on due Goal Tobacco Use Cessation Counse ling. Due on due Goal Depression screening. Due on due Goal CBC. Due on due Goal Tobacco Use Screening. Due o n due Goal ECG. Due on due Goal HIV screen due Goal Drug Abuse Screening Test (D AST). Due on due Goal Hepatitis C Screening due Goal Obtain Height, Weight, and B UT. Due on due Goal PAP. Due on due Goal Vitamin D. Due on due Goal Diabetes screening. Due on due Goal CMP. Due on due Goal Follow up Plan f or abnormal BMI (Less than 18.5, greater than 25). Due on due Goal Influenza vaccine. Due on due Goal Vitamin B12. Due on due Goal TSH. Due on due Goal Lipid panel. Due on due Goal Obtain blood Pressure. Due o n due Goal Urinalysis. Due on due Goal Unhealthy drug use screening due Goal Influenza vaccine. Due on due Goal Vitamin B12. Due on due Goal CMP. Due on due Goal Unhealthy drug use screening due Goal Tobacco Use Screening. Due o n due Goal Vitamin D. Due on due Goal Diabetes screening. Due on due Goal Follow up Plan f or abnormal BMI (Less than 18.5, greater than 25). Due on due Goal Drug Abuse Scree honorio Test (DAST-10). Due on due Goal TSH. Due on due Goal Drug Abuse Screening Test (D AST). Due on due Goal CBC. Due on due Goal Depression screening. Due on due Goal Obtain blood Pressure. Due o n due Goal Urinalysis. Due on due Goal ECG. Due on due Goal Obtain Height, Weight, and B UT. Due on due Goal Generalized Anxi ety Disorder - 7 (LIDIA-7). Due on due Goal HIV screen due Goal Hepatitis C Screening due Goal Lipid panel. Due on due Goal Lifestyle education regardin g diet completed Goal Unhealthy drug use screening . Due on due Goal CBC. Due on due Goal Tobacco Use Screening. Due o n due Goal Follow up Plan f or abnormal BMI (Less than 18.5, greater than 25). Due on due Goal Lipid panel. Due on due Goal HIV screen due Goal TSH. Due on due Goal Vitamin B12. Due on due Goal Vitamin D. Due on due Goal Tobacco Use Cessation Counse ling. Due on due Goal ECG. Due on due Goal Drug Abuse Screening Test (D AST). Due on due Goal CMP. Due on due Goal Generalized Anxi ety Disorder - 7 (LIDIA-7). Due on due Goal Depression screening. Due on due Goal Obtain Height, Weight, and B UT. Due on due Goal Influenza vaccine. Due on due Goal Urinalysis. Due on due Goal PAP. Due on due Goal Hepatitis C Screening due Goal Obtain blood Pressure. Due o n due Goal Diabetes screening. Due on due Goal Drug Abuse Scree honorio Test (DAST-10). Due on due Goal Hepatitis C Screening due Goal HIV screen due Goal Generalized Anxi ety Disorder - 7 (LIDIA-7). Due on due Goal PAP. Due on due Goal CMP. Due on due Goal CBC. Due on due Goal Vitamin D. Due on due Goal Hepatitis C Screening due Goal Drug Abuse Screening Test (D AST). Due on due Goal HIV screen due Goal Influenza vaccine. Due on due Goal Obtain Height, Weight, and B UT. Due on due Goal Follow up Plan f or abnormal BMI (Less than 18.5, greater than 25). Due on due Goal Vitamin B12. Due on due Goal TSH. Due on due Goal Drug Abuse Scree honorio Test (DAST-10). Due on due Goal Tobacco Use Cessation Counse ling. Due on due Goal Diabetes screening. Due on due Goal Lipid panel. Due on due Goal Depression screening. Due on due Goal Tobacco Use Screening. Due o n due Goal Unhealthy drug use screening . Due on due Goal Dietary management education , guidance, and counseling completed Goal Influenza vaccine. Due on due Goal Generalized Anxi ety Disorder - 7 (LIDIA-7). Due on due Goal TSH. Due on due Goal Unhealthy drug use screening . Due on due Goal PAP. Due on due Goal Lipid panel. Due on due Goal Obtain Height, Weight, and B UT. Due on due Goal Drug Abuse Screening Test (D AST). Due on due Goal HIV screen due Goal Diabetes screening. Due on due Goal Tobacco Use Screening. Due o n due Goal Drug Abuse Scree honorio Test (DAST-10). Due on due Goal Tobacco Use Cessation Counse ling. Due on due Goal Depression screening. Due on due Goal Follow up Plan f or abnormal BMI (Less than 18.5, greater than 25). Due on due Goal Hepatitis C Screening due Goal Vitamin D. Due on due Goal CMP. Due on due Goal Vitamin B12. Due on due Goal CBC. Due on due Goal Dietary management education , guidance, and counseling completed Goal Diabetes screening. Due on due Goal Lipid panel. Due on due Goal Vitamin B12. Due on due Goal Hepatitis C Screening. Due o n due Goal CBC. Due on due Goal Influenza vaccine. Due on due Goal Drug Abuse Scree honorio Test (DAST-10). Due on due Goal HIV screen due Goal Tobacco Use Screening. Due o n due Goal Tobacco Use Cessation Counse ling. Due on due Goal PAP. Due on due Goal Obtain Height, Weight, and B UT. Due on due Goal Drug Abuse Screening Test (D AST). Due on due Goal TSH. Due on due Goal Follow up Plan f or abnormal BMI (Less than 18.5, greater than 25). Due on due Goal Vitamin D. Due on due Goal CMP. Due on due Goal Generalized Anxi ety Disorder - 7 (LIDIA-7). Due on due Goal Depression screening. Due on due Goal Lifestyle education regardin g diet completed Goal Vitamin B12. Due on due Goal Obtain Height, Weight, and B UT. Due on due Goal Tobacco Use Cessation Counse ling. Due on due Goal Influenza vaccine. Due on due Goal Drug Abuse Screening Test (D AST). Due on due Goal Follow up Plan f or abnormal BMI (Less than 18.5, greater than 25). Due on due Goal Vitamin D. Due on due Goal PAP. Due on due Goal CMP. Due on due Goal Drug Abuse Scree honorio Test (DAST-10). Due on due Goal Tobacco Use Screening. Due o n due Goal Depression screening. Due on due Goal TSH. Due on due Goal Generalized Anxi ety Disorder - 7 (LIDIA-7). Due on due Goal Lipid panel. Due on 023 due Goal Diabetes screening. Due on due Goal HIV screen due Goal CBC. Due on due Goal Hepatitis C Screening. Due o n due Goal Influenza vaccine. Due on due Goal Generalized Anxi ety Disorder - 7 (LIDIA-7). Due on due Goal Depression screening. Due on due Goal HIV screen. Due on due Goal PAP. Due on due Goal Drug Abuse Screening Test (D AST). Due on due Referral Referred To: [facility] [address] [place], [phone] Ordered: Referrals: Cardiology. [facility]. Location: [facility]. Consult Appointment date/timeframe: 10/14/2022 ordered Referral Referred To: [facility] Ordered: Referrals: Radiotherapy. [facility]. Location: [place]. Diagnostic testing Appointment date/timeframe: 1 Day ordered Referral Referred To: [facility] Ordered: Referrals: Orthopedic Surgery. [facility]. Location: [place]. Evaluate and treat Appointment date/timeframe: 1 Week ordered History Of Present Illness Encounter Date Complaint History Of Prese nt Illness follow labs and surg ical clearance Dorie is here today for f/u on recent labs and for surgical clearance.Overall labs ok-A1c in office today 5.6Glucose 104Vit D 19 slighlty low- taking otc vit d3 5000 IU, but has not has for the past two or three weeksTSH 3.95B12 495Total cholesterol 180, LDL 105, Trigs 211, HDL 42.She is compliant with BP medication- normotensive here in office todayAdriana is requesting a referral to Cardiology for her surgery clearance as well.SHe has no known cardiac hx, denies cp, soa, faiting.She is obeise- has prediabetes, likley masked by use of metformin, HTN, masked by medication control, and elevated triglycerides and Ldl.She is to have Bariatric surgery once clearance obtained- Gastric sleeve at [facility] past she reports she has tried various diets, Keto, Meal replacement, Gant, Low caloric diet, and others she cannot recallShe has not been successul with these diets FASTING 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 SUCCESSFULLY COLLECTED 4 TUBES. PT TOLERATED WELL. PT SCHEDULED TO RTC IN 1 WEEK TO FOLLOW UP ON LAB RESULTS. PT AWARE OF APPOINTMENT. follow up no complaints to dayDorie is here to f/u on her medication pristiq and bpTSH 4.97- will repeat tsh today for 6 week check on levothyroxine- started 05/26/22- reports feeling [id number] 488 Vit D 12- weekly supplement sent on 05/27/22 and pt has started taking itShe states pristiq is helping. Moods are better- on 50 mg dailyLess depressionBP is improved 120/80-started on valsartan 06/23/22states she headaches 2-4 days of the week are better... gone more energyRTC 2 months follow up Dorie is here t o f/u on her medication pristiq and recent lab results:A1c 5.2, CBC, CMP wnlHep NegTotal Cholesterol 190, LDLD 114, HDL 41, and Trigs 233- diet recommendations were made to decrease fats/grease consumptionfollow a medeterainian diet [facility] 4.97- will repeat on or after 07/08/22- on levothyroxine- started 05/26/22- reports feeling [id number] 488 Vit D 12- weekly supplement sent on 05/27/22 and pt has started taking itShe states pristiq is helping. Moods are betterLess depressionslightly hypertensive in office again todaystates she has headaches 2-4 days of the weekdenies cp, soa, dizzinessDiscussed sleep patternslimit caffeine ans we will try bp regulation w/ valsartanWhile BP may be a cuase of her FINK, what she describes is more like migraines- one side (rt side) She was instructed to identify triggersRTC 2 weeks f/u BP, TSH repeat lab, and medication f/u follow up xray Dorie is here t hailee for f/u on her left foot xrayit was found to be a navicular avulsion bone fractureShe will be refered to Orthopedics at [facility] Dr. Odonnell is doing well with her new medication- although she just started them on Saturdayshe is fasting today and will have labs collectedshe voices no other concerns for todayBP was elevated at last visit, no hx of htn. Today is 125/74 Left Foot Pain Onset: gradual. Duration: 3 Months. Severity level is moderate. Location: left ankle (medial). There is no radiation. The pain is aching and sharp. Context: there is no injury. The pain is aggravated by climbing stairs, movement and walking. The pain is relieved by rest. Associated symptoms include joint tenderness. Pertinent negatives include bruising, crepitus, decreased mobility, difficulty initiating sleep, joint instability, limping, locking, nocturnal awakening, nocturnal pain, numbness, popping, spasms, swelling, tingling in the arms, tingling in the legs and weakness. Instructions Date Instruction Additional Infor mation Physical activity as tolerated. Try to engage in some form of moderate physical activity for 30 minutes most days of the week. May modify activity as needed to reduce discomfort. Try to achieve/maintain a healthy body weight to reduce strain on musculoskeletal system. Verbalizes an understanding. Related to Body mass index [BMI] 50.0-59.9, adult Clearance for Bariat kodi surgery- gastric sleeveLabs collected today in officeForms completed and scanned to chart, faxed to [facility]: [phone] to have CXR at [facility] per Raza Sunny, DNP, SIZE MARKER's orders and referral to Cardiology for cardiac clearance. Related to Encounter for other preprocedural exam Take medications as prescribed. Follow a sleep schedule. Try to engage in 30 minutes of moderate activity daily if tolerated, as exercise has been shown to improve depression symptoms Related to Depression Patient educated on the importance of maintaining glycemic control. Instructed on the importance of taking all medications as prescribed. Patient aware of the importance of diabetic eye exams, dental check ups, foot exams and diabetic foot care. Patient verbalized understanding. Related to Prediabetes Take medication vito y at the same time, and on an empty stomach. Get adequate rest daily and 30 minutes of moderate exercise most days of the week. Related to Hypothyroidism, unspecified Patient currently do ing well. BP in goal range. No medication changes. Patient instructed to follow a low salt diet, continuing taking blood pressure medications as prescribed. Keep routine follow up with clinic. Related to Essential hypertension Giving encouragement to exercise Related to Body mass index [BMI] 50.0-59.9, adult Lifestyle education regarding di et Related to Body mass index [BMI] 50.0-59.9, adult Take medications as prescribed. Follow a sleep schedule. Try to engage in 30 minutes of moderate activity daily if tolerated, as exercise has been shown to improve depression symptoms Related to Depression Take medication vito y at the same time, and on an empty stomach. Get adequate rest daily and 30 minutes of moderate exercise most days of the week. Related to Hypothyroidism, unspecified Patient currently do ing well. BP in goal range. No medication changes. Patient instructed to follow a low salt diet, continuing taking blood pressure medications as prescribed. Keep routine follow up with clinic. Related to Essential hypertension Giving encouragement to exercise Related to Body mass index [BMI] 50.0-59.9, adult Dietary management e ducation, guidance, and counseling Related to Body mass index [BMI] 50.0-59.9, adult Physical activity as tolerated. Try to engage in some form of moderate physical activity for 30 minutes most days of the week. May modify activity as needed to reduce discomfort. Try to achieve/maintain a healthy body weight to reduce strain on musculoskeletal system. Verbalizes an understanding. Related to Body mass index [BMI] 50.0-59.9, adult Take medications as prescribed. Follow a sleep schedule. Try to engage in 30 minutes of moderate activity daily if tolerated, as exercise has been shown to improve depression symptoms Related to Depression Take medication vito y at the same time, and on an empty stomach. Get adequate rest daily and 30 minutes of moderate exercise most days of the week. Related to Hypothyroidism, unspecified Patient currently do ing well. BP in goal range. No medication changes. Patient instructed to follow a low salt diet, continuing taking blood pressure medications as prescribed. Keep routine follow up with clinic. Patient instructed of the importance of taking medications as prescribed, following a low salt diet as well as getting physical activity as tolerated. Patient advised to keep BP log daily checking each morning and before bed. Patient to call the clinic if systolic blood pressure is greater than 150 and/or diastolic blood pressure is staying greater than 90. Related to Essential hypertension Giving encouragement to exercise Related to Body mass index [BMI] 50.0-59.9, adult Dietary management e ducation, guidance, and counseling Related to Body mass index [BMI] 50.0-59.9, adult BP is normal today 125/74 Relate d to Elevated BP reading w/o diagnosis of HTN Referral has been woody peoples to [facility] orthopedics - Dr. Kirby to stay off foot, elevate, use ice 20 min on/off and tylenol for pain Related to Pain in left foot Take medications as prescribed. Follow a sleep schedule. Try to engage in 30 minutes of moderate activity daily if tolerated, as exercise has been shown to improve depression symptoms Related to Depression Dietary Instructions for a healthy weight: BMI should be between the range of 18.5-24.9 for an adult; and Caloric intake should be around 2594-0806 for a female, and 9186-3403 for an adult male. Fiber intake should be about 14 grams for 1000 calories per day. That is about 20-30 grams daily. Good sources of fiber are oatmeal, fortified grains, and green leafy vegetables, apples. You can also use Carbohydrate counting to maintain a healthy weight. One serving is equal to 15 grams (1 piece of bread, small fruit, or 1 cup of milk). Men should have 45-75, Women about 30-65 per meal, and snacks are recommend to be 13-30 grams each. SmartStudy.com.gov is a good source for meal planning and dietary education. You may also refer to the [place] [employer] website for further low sodium, health heart diet information. Mediterainian diet would be a suitable diet for your current health conditions. Weight loss is recommend. Being active is an essential part of being healthy. Physical activity as tolerated. Try to engage in some form of moderate physical activity for 30 minutes most days of the week. May modify activity as needed to reduce discomfort. Try to achieve/maintain a healthy body weight to reduce strain on musculoskeletal system. Verbalizes an understanding. Related to Body mass index [BMI] 50.0-59.9, adult Weight monitoring Related to Bod y mass index [BMI] 50.0-59.9, adult Lifestyle education regarding di et Related to Body mass index [BMI] 50.0-59.9, adult Your BP was elevated today Eat a low sodium diet Exercise daily for at least 30 min daily 5 days a weekRTC in 2 weeks for repeat BP check Related to Elevated BP reading w/o diagnosis of HTN Flu vaccine todayCon rolled glass crosscutter your Covid booster at next visit Related to Encounter for immunization Patient educated on the importance of maintaining glycemic control. Counseled on diet, exercise and other lifestyle factors that can impact glucose control. Patient aware of the importance of diabetic eye exams, dental check ups, foot exams and diabetic foot care. Patient verbalized understanding. Related to Prediabetes Take medications as prescribed. Follow a sleep schedule. Try to engage in 30 minutes of moderate activity daily if tolerated, as exercise has been shown to improve depression symptoms Related to Depression Go to hospital for x ray of left ankleUse shoes with good support Related to Pain in left foot Assessments Type Assessment Date No Information
[2024-11-19] VITALS (24 sets, daily range): BP systolic 100–154; BP diastolic 44–96; PULSE 72–104; RESP 16–20; TEMP 36.6–37.2; O2SAT 98–100; BMI 36.5
--- NOTE | 2024-11-19 14:44 | ED_ITS ---
Discharge Plan Disposition Patient Disposition: Admitted Prescriptions Prescriptions: No Action metformin 850 mg tablet 850 mg PO DAILY cholecalciferol (vitamin D3) 1,250 mcg (50,000 unit) capsule 1,250 mcg PO WEEKLY Patient Comments: TAKE 1 CAPSULE BY MOUTH ONCE A WEEK valsartan 80 mg tablet 80 mg PO DAILY Referrals Follow up/Referrals: Provider,Goldie, [Primary Care Provider, Medical] - See instructions Clinical Impressions Clinical Impression: Vaginal bleeding, Anemia associated with acute blood loss Print Language Print Language: Malaysian Discharge ED Provider: Gerald Mcdonnell General Adult HPI <Luis Menendez MD - Last Filed: 11/19/24 16:11> General Chief complaint: Vaginal Bleeding Stated complaint: vaginalbleeding , two weeks. Time Seen by Provider: 11/19/24 14:44 Mode of Arrival: Ambulatory Source of Information: Patient Limitations: No Limitations History of Present Illness HPI narrative: Toyin Kim is a 24-year-old female with past medical history of previous miscarriage, hypertension, diabetes mellitus, gastric sleeve surgery who presents to the emergency department for complaints of vaginal bleeding and lower abdominal cramping. Patient states that she was recently in [place] and has had 3 weeks of heavy vaginal bleeding. She states that initially, she had a large clot from her vagina and the size of her hand and that she is continuing to have smaller blood clots from her vagina. She is not sure if she is having blood in her urine but does have blood in the toilet bowl when she pees. She reports cramping abdominal pain in the lower abdomen. She denies any possibility of being , although she states that this feels similar to when she had miscarriages in the past. She states that while she was in [place], she was told that she was anemic with a . blood count of 7.5 She was put on ibuprofen and another medication with minimal relief of her symptoms. She does not currently have an MALT SPECIFICATIONS CONTROL ASSISTANT physician. She states that her periods prior to this were not heavy but lasted 2 weeks and occurred every month, however she did not have a period last month Related Data Home Medications ?Medication ?Instructions ?Recorded ?Confirmed metformin 850 mg tablet 850 mg PO DAILY Diabetes 02/1909/14/23 valsartan 80 mg tablet 80 mg PO DAILY Hypertension 10/14/22 09/14/23 cholecalciferol (vitamin D3) 1,250 1,250 mcg PO WEEKLY 07/13/23 09/14/23 mcg (50,000 unit) capsule Allergies Allergy/AdvReac Type Severity Reaction Status Date / Time No Known Allergies Allergy Verified 09/14/23 14:05 [facility] <Luis Menendez MD - Last Filed: 11/19/24 16:11> [facility] Disclaimer: The information contained in this section may have been updated after the patient was seen, as this information can be updated by other users. Medical History Encounter for pre-operative respiratory clearance No significant past medical history No significant past medical history Hypertension Diabetes mellitus, type 2 Surgical History No history of previous surgery Family History Family history of hypertension Family history of diabetes mellitus type II Social History Smoking Status: Never smoker alcohol intake: current alcohol intake frequency: holidays/special occasions only current occupational status: employed Travel in the last 8 weeks?: None Have you lived/traveled outside US in past 30 days?: No Contact w/someone who lives/traveled outside US past 30 days?: No Exposure to someone with infectious disease in past 14 days?: No Do you have a fever (greater than 100.4 F or 38 C)?: No Have you tested positive for COVID-19?: No Exposed to someone with COVID-19 in past 14 days?: No Do you have a sore throat?: No Do you have a cough?: No Do you have any weakness?: No Do you have any diarrhea?: No Are you experiencing any unusual bleeding?: No Do you have any muscle aches/pain?: No Do you have any abdominal pain?: No Are you experiencing loss of taste or smell?: No Other Medical History Have you received the Flu Vaccine for this season: Yes Have you received the Pneumonia Vaccine: No <Luis Menendez MD - Last Filed: 11/19/24 16:11> ROS Obtained: Yes Systems reviewed as appropriate & no additional complaints except as documented Physical Exam <Luis Menendez MD - Last Filed: 11/19/24 16:11> General General appearance: alert, in no apparent distress and obese Head Head exam: atraumatic Eye Eye exam: Present normal appearance ENT ENT exam: Present normal external ear exam Neck Neck exam: Present full ROM Chest Chest inspection: Present symmetric chest wall rise Respiratory Respiratory exam: Present normal lung sounds bilaterally; Absent respiratory distress, wheezes or stridor Cardiovascular Cardiovascular exam: Present regular rate and normal rhythm Abdominal Exam Abdominal exam: Present soft; Absent distention, tenderness or guarding Extremities Exam Extremities exam: Present normal inspection Back Exam Back exam: Present normal inspection Neurological Exam Neurological exam: Present alert and oriented X3 Psychiatric Psychiatric exam: Present normal affect Skin Skin exam: Present warm, dry and other (pale) Medical Decision Making <Luis Menendez MD - Last Filed: 11/19/24 16:11> Medical Records Screening: Per USPSTF and CDC recommendations, given the prevalence of disease in our region, it is our hospital?s policy to screen for HIV and viral Hepatitis for all patients aged 18 and over and those with ongoing risk factors. Joaquin Inquiry Pt receiving controlled substance: No Vital Signs: 11/19/24 15:00 11/19/24 15:08 11/19/24 15:30 Temperature 99.0 F Temperature Source Oral Pulse Rate 87 104 H Pulse Rate [Right] 89 Respiratory Rate 20 TAR Vitals Timing Blood Pressure 154/96 H 123/92 H Blood Pressure [Right Arm] 154/96 H Blood Pressure Mean Blood Pressure Mean [Right Arm] 115 02 Sat by Pulse Oximetry 100 98 100 Oxygen Delivery Method Room Air 11/19/24 15:45 11/19/24 16:44 11/19/24 16:51 Temperature 98.7 F 98.1 F Temperature Source Oral Oral Pulse Rate 91 H 87 82 Pulse Rate [Right] Respiratory Rate 16 16 TAR Vitals Timing Pre-Blood Vitals Start Vitals Blood Pressure 123/92 H 125/69 127/68 Blood Pressure [Right Arm] Blood Pressure Mean 87 87 Blood Pressure Mean [Right Arm] 02 Sat by Pulse Oximetry 100 99 100 Oxygen Delivery Method 11/19/24 16:56 11/19/24 17:01 11/19/24 17:06 Temperature 98.4 F 98.6 F 98.1 F Temperature Source Oral Oral Oral Pulse Rate 76 83 77 Pulse Rate [Right] Respiratory Rate 20 18 16 TAR Vitals Timing 5 Minute 10 Minute 15 Minute Blood Pressure 122/66 111/58 L 114/54 L Blood Pressure [Right Arm] Blood Pressure Mean 84 75 74 Blood Pressure Mean [Right Arm] 02 Sat by Pulse Oximetry 100 100 100 Oxygen Delivery Method Lab Data Lab Results 11/19/24 14:46: Urine Color Yellow, Urine Appearance Clear, Urine pH 5.5, Ur Specific Sanborn 1.025, Urine Protein Trace, Urine Glucose (UA) Negative, Urine Ketones Negative, Urine Blood 3+ A, Urine Nitrate Positive A, Urine Bilirubin Negative, Urine Urobilinogen 1.0, Ur Leukocyte Esterase Trace, Urine RBC Tntc, Urine WBC Occasional, Ur Squamous Epith Cells 3-5, Urine Bacteria 1+ 11/19/24 15:05: WBC 6.4, RBC 2.23 L, Hgb 6.6 L*, Hct 20.0 L*, MCV 89.7, MCH 29.6, MCHC 33.0, RDW 13.8, Plt Count 220, MPV 11.9 H, Neut % (Auto) 60.1, Lymph % (Auto) 31.0, Allen % (Auto) 5.5, Eos % (Auto) 2.7, Baso % (Auto) 0.2, Neut # (Auto) 3.8, Lymph # (Auto) 2.0, Allen # (Auto) 0.4, Eos # (Auto) 0.2, Baso # (Auto) 0.0, PT 10.4, INR 0.93, APTT 22.1 L, Sodium 138, Potassium 4.0, Chloride 109 H, Carbon Dioxide 24, Anion Gap 9.0, BUN 11, Creatinine 0.50 L, Estimated Creat Clear 296, Estimated GFR 150, Est GFR ( Amer) 182, Glucose 96, Calcium 9.1, Magnesium 2.0, Total Bilirubin 0.4, AST 28, ALT 16, Alkaline Phosphatase 68, Troponin I < 0.01, NT-Pro-B Natriuret Pep 176 H, Total Protein 6.6, Albumin 3.9, Globulin 2.7, Albumin/Globulin Ratio 1.4, Lipase 99, Serum HCG, Qual Negative, HCV Ab YULI w/Rflx PCR Qn Negative, HIV Ag/Ab Combo Qual Negative, Blood Type A Positive, Antibody Screen Negative, Crossmatch (AHG) See Detail 11/19/24 15:05 11/19/24 15:05 Orders (Tests/Meds): ED MEDICATIONS Generic Name Dose Route Start Last Admin Trade Name Freq PRN Reason Stop Dose Admin Sodium Chloride 250 mls @ 25 mls/hr 11/19/24 15:45 Sod Chlor 0.9% 250ml Bag IV 11/20/24 15:44 .Q10H BAUTISTA Discontinued Medications Generic Name Dose Route Start Last Admin Trade Name Freq PRN Reason Stop Dose Admin Acetaminophen 1,000 mg 11/19/24 14:58 11/19/24 15:26 Acetaminophen 500mg Tab PO 11/19/24 14:59 1,000 mg ONCE ONE Administration Ceftriaxone Sodium 1 gm/ 50 mls @ 100 mls/hr 11/19/24 16:36 Sodium Chloride IV 11/19/24 17:05 ONCE ONE ORDERS Category Date Time Status Transfuse RBC's [Red Blood Cells] Stat BBK 11/19/24 15:05 Completed Type and Screen Stat BBK 11/19/24 15:05 Completed CXR --portable [XR chest portable] Stat Exams 11/19/24 14:58 Completed US transvaginal Stat Exams 11/19/24 15:27 Completed BNP [NT Pro Brain Natriuretic Pep.] Stat Lab 11/19/24 15:05 Completed CBC w/Auto Diff [Complete Blood Count Auto Diff] Stat Lab 11/19/24 15:05 Completed CMP [Comprehensive Metabolic Panel] Stat Lab 11/19/24 15:05 Completed HIV Combo Stat Lab 11/19/24 15:05 Completed Hepatitis C Ab Qual. W/ RFX Stat Lab 11/19/24 15:05 Completed Lipase Stat Lab 11/19/24 15:05 Completed Magnesium Stat Lab 11/19/24 15:05 Completed PT INR [Prothrombin Time INR] Stat Lab 11/19/24 15:05 Completed PTT [Activated Partial Thrombo Time] Stat Lab 11/19/24 15:05 Completed Serum [HCG Qualitative, Serum] Stat Lab 11/19/24 15:05 Completed Troponin I Q3H Lab 11/19/24 18:00 Ordered Troponin I Q3H Lab 11/19/24 21:00 Ordered Troponin I Stat Lab 11/19/24 15:05 Completed UA [Urinalysis and Microscopic] Stat Lab 11/19/24 14:46 Completed Urine Culture Stat Micro 11/19/24 14:46 Received EKG Request [ECG Request] Stat Y 11/19/24 15:25 Ordered Medical Decision Narrative: Toyin Kim is a 24-year-old female with past medical history of previous miscarriage, hypertension, diabetes mellitus, gastric sleeve surgery who presents to the emergency department for complaints of vaginal bleeding and lower abdominal cramping. Patient states that she was recently in [place] and has had 3 weeks of heavy vaginal bleeding. She states that initially, she had a large clot from her vagina and the size of her hand and that she is continuing to have smaller blood clots from her vagina. She is not sure if she is having blood in her urine but does have blood in the toilet bowl when she pees. She reports cramping abdominal pain in the lower abdomen. She denies any possibility of being , although she states that this feels similar to when she had miscarriages in the past. She states that while she was in [place], she was told that she was anemic with a blood count of 7.5 She was put on ibuprofen and another medication with minimal relief of her symptoms. She does not currently have an MALT SPECIFICATIONS CONTROL ASSISTANT physician. She states that her periods prior to this were not heavy but lasted 2 weeks and occurred every month, however she did not have a period last month. Patient does report some chest tightness and shortness of breath currently. On arrival, patient is mildly hypertensive with blood pressure 154/96, heart rate within normal limits, breathing currently on room air with oxygen saturation 100% SpO2. Afebrile. Physical exam, as stated above, reveals an overall well-appearing female in no distress. Cardiopulmonary exam is unremarkable with no murmurs, gallops or rubs. No wheezing rales or rhonchi. Abdomen is soft and nondistended. Remainder of her physical exam is grossly unremarkable. Differential diagnosis includes, but is not limited to: Spontaneous miscarriage, ectopic , menorrhagia, endometriosis, uterine fibroid, uterine polyp, symptomatic anemia, ACS, coagulopathy, urinary tract infection/hemorrhagic cystitis, among others. The most morbid conditions were considered and workup was based on these. Workup in the emergency department included: CBC, CMP, magnesium level, troponin, lipase, serum test, urinalysis, type and screen, EKG, BNP, PTT, PT/INR, chest x-ray, urinalysis, transvaginal ultrasound At this time, workup significant for CBC with hemoglobin significantly low at 6.6 and hematocrit of 20 (patient states that her hemoglobin was 7.5 on Tuesday in [place]), platelets normal at 220, CMP unremarkable and nonactionable, creatinine normal at 0.5, BUN normal at 11, magnesium normal at 2.0, liver enzymes within normal limits, bilirubin normal at 0.4, lipase normal at 99, negative serum test. Urine with 3+ blood, positive nitrates but only occasional white blood cells and bacteria of 1+. Too numerous to count red blood cells. Negative leukocyte Estrace. Patient is not have any urinary symptoms and is felt that this is unlikely to represent a urinary tract infection. Patient was consented for transfusion due to her critically low hemoglobin. She will be transfused 1 unit PRBCs. Chest x-ray interpreted by me prior to official radiology read. No focal consolidation, no pleural effusion, no widening of the mediastinum. No enlarged cardiac silhouette. No pneumothorax. See final radiology report for details. At this time, patient's care was handed off to oncoming physician, Dr. Mcdonnell, pending completion of her workup. <Gerald Mcdonnell MD - Last Filed: 11/19/24 17:19> Vital Signs: 11/19/24 15:00 11/19/24 15:08 11/19/24 15:30 Temperature 99.0 F Temperature Source Oral Pulse Rate 87 104 H Pulse Rate [Right] 89 Respiratory Rate 20 TAR Vitals Timing Blood Pressure 154/96 H 123/92 H Blood Pressure [Right Arm] 154/96 H Blood Pressure Mean Blood Pressure Mean [Right Arm] 115 02 Sat by Pulse Oximetry 100 98 100 Oxygen Delivery Method Room Air 11/19/24 15:45 11/19/24 16:44 11/19/24 16:51 Temperature 98.7 F 98.1 F Temperature Source Oral Oral Pulse Rate 91 H 87 82 Pulse Rate [Right] Respiratory Rate 16 16 TAR Vitals Timing Pre-Blood Vitals Start Vitals Blood Pressure 123/92 H 125/69 127/68 Blood Pressure [Right Arm] Blood Pressure Mean 87 87 Blood Pressure Mean [Right Arm] 02 Sat by Pulse Oximetry 100 99 100 Oxygen Delivery Method 11/19/24 16:56 11/19/24 17:01 11/19/24 17:06 Temperature 98.4 F 98.6 F 98.1 F Temperature Source Oral Oral Oral Pulse Rate 76 83 77 Pulse Rate [Right] Respiratory Rate 20 18 16 TAR Vitals Timing 5 Minute 10 Minute 15 Minute Blood Pressure 122/66 111/58 L 114/54 L Blood Pressure [Right Arm] Blood Pressure Mean 84 75 74 Blood Pressure Mean [Right Arm] 02 Sat by Pulse Oximetry 100 100 100 Oxygen Delivery Method Lab Data Lab Results 11/19/24 14:46: Urine Color Yellow, Urine Appearance Clear, Urine pH 5.5, Ur Specific Sanborn 1.025, Urine Protein Trace, Urine Glucose (UA) Negative, Urine Ketones Negative, Urine Blood 3+ A, Urine Nitrate Positive A, Urine Bilirubin Negative, Urine Urobilinogen 1.0, Ur Leukocyte Esterase Trace, Urine RBC Tntc, Urine WBC Occasional, Ur Squamous Epith Cells 3-5, Urine Bacteria 1+ 11/19/24 15:05: WBC 6.4, RBC 2.23 L, Hgb 6.6 L*, Hct 20.0 L*, MCV 89.7, MCH 29.6, MCHC 33.0, RDW 13.8, Plt Count 220, MPV 11.9 H, Neut % (Auto) 60.1, Lymph % (Auto) 31.0, Allen % (Auto) 5.5, Eos % (Auto) 2.7, Baso % (Auto) 0.2, Neut # (Auto) 3.8, Lymph # (Auto) 2.0, Allen # (Auto) 0.4, Eos # (Auto) 0.2, Baso # (Auto) 0.0, PT 10.4, INR 0.93, APTT 22.1 L, Sodium 138, Potassium 4.0, Chloride 109 H, Carbon Dioxide 24, Anion Gap 9.0, BUN 11, Creatinine 0.50 L, Estimated Creat Clear 296, Estimated GFR 150, Est GFR ( Amer) 182, Glucose 96, Calcium 9.1, Magnesium 2.0, Total Bilirubin 0.4, AST 28, ALT 16, Alkaline Phosphatase 68, Troponin I < 0.01, NT-Pro-B Natriuret Pep 176 H, Total Protein 6.6, Albumin 3.9, Globulin 2.7, Albumin/Globulin Ratio 1.4, Lipase 99, Serum HCG, Qual Negative, HCV Ab YULI w/Rflx PCR Qn Negative, HIV Ag/Ab Combo Qual Negative, Blood Type A Positive, Antibody Screen Negative, Crossmatch (AHG) See Detail Orders (Tests/Meds): ED MEDICATIONS Generic Name Dose Route Start Last Admin Trade Name Adry PRN Reason Stop Dose Admin Sodium Chloride 250 mls @ 25 mls/hr 11/19/24 15:45 Sod Chlor 0.9% 250ml Bag IV 11/20/24 15:44 .Q10H BAUTISTA Discontinued Medications Generic Name Dose Route Start Last Admin Trade Name Adry PRN Reason Stop Dose Admin Acetaminophen 1,000 mg 11/19/24 14:58 11/19/24 15:26 Acetaminophen 500mg Tab PO 11/19/24 14:59 1,000 mg ONCE ONE Administration Ceftriaxone Sodium 1 gm/ 50 mls @ 100 mls/hr 11/19/24 16:36 Sodium Chloride IV 11/19/24 17:05 ONCE ONE ORDERS Category Date Time Status Transfuse RBC's [Red Blood Cells] Stat BBK 11/19/24 15:05 Completed Type and Screen Stat BBK 11/19/24 15:05 Completed CXR --portable [XR chest portable] Stat Exams 11/19/24 14:58 Completed US transvaginal Stat Exams 11/19/24 15:27 Completed BNP [NT Pro Brain Natriuretic Pep.] Stat Lab 11/19/24 15:05 Completed CBC w/Auto Diff [Complete Blood Count Auto Diff] Stat Lab 11/19/24 15:05 Completed CMP [Comprehensive Metabolic Panel] Stat Lab 11/19/24 15:05 Completed HIV Combo Stat Lab 11/19/24 15:05 Completed Hepatitis C Ab Qual. W/ RFX Stat Lab 11/19/24 15:05 Completed Lipase Stat Lab 11/19/24 15:05 Completed Magnesium Stat Lab 11/19/24 15:05 Completed PT INR [Prothrombin Time INR] Stat Lab 11/19/24 15:05 Completed PTT [Activated Partial Thrombo Time] Stat Lab 11/19/24 15:05 Completed Serum [HCG Qualitative, Serum] Stat Lab 11/19/24 15:05 Completed Troponin I Q3H Lab 11/19/24 18:00 Ordered Troponin I Q3H Lab 11/19/24 21:00 Ordered Troponin I Stat Lab 11/19/24 15:05 Completed UA [Urinalysis and Microscopic] Stat Lab 11/19/24 14:46 Completed Urine Culture Stat Micro 11/19/24 14:46 Received EKG Request [ECG Request] Stat Y 11/19/24 15:25 Ordered ECG Data Tracing #1: Independently interpreted by me rate is 87, rhythm is regular, axis is normal, no ST elevation in anatomical contiguous leads, QTc 388 Medical Decision Narrative: Toyin Kim is a 24-year-old female with past medical history of previous miscarriage, hypertension, diabetes mellitus, gastric sleeve surgery who presents to the emergency department for complaints of vaginal bleeding and lower abdominal cramping. Patient states that she was recently in [place] and has had 3 weeks of heavy vaginal bleeding. She states that initially, she had a large clot from her vagina and the size of her hand and that she is continuing to have smaller blood clots from her vagina. She is not sure if she is having blood in her urine but does have blood in the toilet bowl when she pees. She reports cramping abdominal pain in the lower abdomen. She denies any possibility of being , although she states that this feels similar to when she had miscarriages in the past. She states that while she was in [place], she was told that she was anemic with a blood count of 7.5 She was put on ibuprofen and another medication with minimal relief of her symptoms. She does not currently have an MALT SPECIFICATIONS CONTROL ASSISTANT physician. She states that her periods prior to this were not heavy but lasted 2 weeks and occurred every month, however she did not have a period last month. Patient does report some chest tightness and shortness of breath currently. On arrival, patient is mildly hypertensive with blood pressure 154/96, heart rate within normal limits, breathing currently on room air with oxygen saturation 100% SpO2. Afebrile. Physical exam, as stated above, reveals an overall well-appearing female in no distress. Cardiopulmonary exam is unremarkable with no murmurs, gallops or rubs. No wheezing rales or rhonchi. Abdomen is soft and nondistended. Remainder of her physical exam is grossly unremarkable. Differential diagnosis includes, but is not limited to: Spontaneous miscarriage, ectopic , menorrhagia, endometriosis, uterine fibroid, uterine polyp, symptomatic anemia, ACS, coagulopathy, urinary tract infection/hemorrhagic cystitis, among others. The most morbid conditions were considered and workup was based on these. Workup in the emergency department included: CBC, CMP, magnesium level, troponin, lipase, serum test, urinalysis, type and screen, EKG, BNP, PTT, PT/INR, chest x-ray, urinalysis, transvaginal ultrasound At this time, workup significant for CBC with hemoglobin significantly low at 6.6 and hematocrit of 20 (patient states that her hemoglobin was 7.5 on Tuesday in [place]), platelets normal at 220, CMP unremarkable and nonactionable, creatinine normal at 0.5, BUN normal at 11, magnesium normal at 2.0, liver enzymes within normal limits, bilirubin normal at 0.4, lipase normal at 99, negative serum test. Urine with 3+ blood, positive nitrates but only occasional white blood cells and bacteria of 1+. Too numerous to count red blood cells. Negative leukocyte Estrace. Patient is not have any urinary symptoms and is felt that this is unlikely to represent a urinary tract infection. Patient was consented for transfusion due to her critically low hemoglobin. She will be transfused 1 unit PRBCs. Chest x-ray interpreted by me prior to official radiology read. No focal consolidation, no pleural effusion, no widening of the mediastinum. No enlarged cardiac silhouette. No pneumothorax. See final radiology report for details. At this time, patient's care was handed off to oncoming physician, Dr. Mcdonnell, pending completion of her workup. Gerald Mcdonnell: Upon assumption of care patient is hemodynamically stable. Patient has a significant anemia compared to his baseline that is getting transfused currently. I discussed case with Dr. Britton after OB ultrasound was obtained and he read it himself, the lining of the uterus is not particularly thick. He evaluated the patient and will admit her for IV estrogen and serial exams and laboratory studies at this time. Critical Care <Luis Menendez MD - Last Filed: 11/19/24 16:11> Critical Care Time Critical Care Time: Yes Attestation: On 11/19/24, the high probability of a clinically significant, sudden or life threatening deterioration of the following system(s) required my full and direct attention, intervention and personal management. The time I documented below is in addition to time spent performing reported procedures but includes the following listed in this critical care notation. Total Time Total Critical Care Time: 35
[2024-11-19 14:55] LABS: Microscopic, Urine URINE MICROSCOPIC (MICROSCOPIC)
--- NOTE | 2024-11-19 14:58 | XR_ITS ---
FINAL REPORT CLINICAL HISTORY: shortness of breath COMPARISON: 06/21/2023 FINDINGS: A single frontal view of the chest was obtained. No acute pulmonary opacity is present. There is hypoinflation of the lungs. There is no evidence of effusion or pneumothorax. Mediastinum is unremarkable. Heart size is normal. IMPRESSION: No acute abnormality. Reviewed, Interpreted and Dictated by Cj Sultana MD Transcribed by Saida Talavera Authenticated and [facility]
--- OUTSIDE RECORDS SUMMARY | 2024-11-19 15:03 | XMS_ITS | Clinical Summary ---
Author Organization [facility] Address [address] [place] [address] Care Team Providers Care Kaiawhina Kura [place] Maori Name Role Phone VieiraJazmín mcbride Michelle WHEAT Primary Care Provider [phone] Social History Tobacco Use Types Packs/Day Years Used Date Smoking Tobacco: Never Assessed Comments Unknown Sex and Gender Information Value Date Recorded Sex Assigned at Not on file Legal Sex Female 7:47 PM EDT Gender Identity Not on file Sexual Orientation Not on file Last Filed Vital Signs Vital Sign Reading Time Taken Comments Blood Pressure 126/72 10/29/2022 11:17 AM EDT Pulse 71 10/29/2022 11:17 AM EDT Temperature - - Respiratory Rate - - Oxygen Saturation - - Inhaled Oxygen Concentration - - Weight 149 kg (329 lb) 10/29/2022 11:17 AM EDT Height 170.2 cm (5' 7 ) 10/29/2022 11:17 AM EDT Body Mass Index 51.53 10/29/2022 11:17 AM EDT Plan of Treatment Health Maintenance Due Date Last Done Comments [facility]-Depression Screening 1999 [facility]-Infant/Child/Adol SDOH Screenings 1999 [facility]-Varicella Vaccines (1 of 2 - 13+ 2-dose series) 09/09/2012 HPV Vaccines (1 - 3-dose series) 09/09/2014 [facility]- SDOH Screenings 09/09/2017 [facility]-Adult SDOH Screenings 09/09/2017 [facility]-DTaP,Tdap,and Td Vaccine s (1 - Tdap) 09/09/2018 [facility]-Hepatitis B Vaccines (1 of 3 - 19+ 3-dose series) 09/09/2018 [facility]-Pap Smear 09/09/2020 [id number] Vaccine ( 20 24-25 season) 2024 [facility]-Influenza Vaccine (#1) 2024 [facility]-Zoster Vaccines (1 of 2) 09/09/2049 [facility]-HIB Vaccines Aged Out No longer e ligible based on patient's age to complete this topic [facility]-Hepatitis A Vaccines Aged Out No longer eligible based on patient's age to complete this topic [facility]-IPV Vaccines Aged Out No longer e ligible based on patient's age to complete this topic [facility]-Pneumococcal Vaccine: Pediatrics (0 to 5 Years) and At-Risk Patients (6 to 49 Years) Aged Out No long er eligible based on patient's age to complete this topic [facility]-Rotavirus Vaccines Aged Out No lo nger eligible based on patient's age to complete this topic Care Teams Kaiawhina Kura [place] Ma[place] Relationship Specialty Start Date End Date Jazmín Vieira APRN [address] [place] [address] PCP - General 05/02/22
--- OUTSIDE RECORDS SUMMARY | 2024-11-19 15:03 | XMS_ITS | Data Portability ---
Author Organization [place] [facility] [employer] ADMIN Address [address] [place] [id number] Care Team Providers Care Forensic Anthropologist Name Role Phone KAILYN TRAMMELL Primary Care Provider [phone] Assessment Encounter Date Assessment Date Assessment LastModified by Organization Details LastModified Time 10/05/2023 10/05/2023 Robotic duodenal switch All Risks, Complications and Alternatives were explained to the patient. They understand that there are many possible complications that may occur with bariatric surgery including but not limited to; bleeding, infection, staple line leak, injury to solid organ, injury to bowel, injury to bladder, injury to blood vessel, pneumonia, DVT, PE, , cardiac event, stricture, ulcer, non-healing of the staple line. They also understand that jail they may develop some of these problems as well as the risk of vitamin deficiencies, malnutrition and this may require further surgery or interventional procedures such as feeding tubes or re-operation for their healing. They have also been given an extensive surgical consent that explains these risks and complications and have acknowledged and signed that they understand these. They understand Weight loss surgery is a tool and that compliance is mandatory to not only be successful but to give them the best chance to avoid complications. They understand they must keep all recommended office follow up appointments and laboratory checks Patient will return to clinic for postoperative follow-up 1 week after surgery. [email or web address] Not available 10/05/2023 09:59:35 11/28/2023 11/28/2023 A total of 10 minutes was spent with the pt today. Recommendations: 1. Increase to 1000 kcal/day 2. Increase to 80 g protein/day 3. Ok to reintroduce caffeine and monitor for s/s of dehydration. Pt doing well overall. Addressed concerns today. Pt was reassured at today's visit. Pt verbally agreed to recommendations and goals. Denied further questions/concerns . RDN will monitor weight loss, labs, meds, and lifestyle modifications. Will f/up as scheduled or PRN. [email or web address] Not available 11/28/2023 11:08:50 Plan of Treatment Reminders Order Date Submit Date Provider Last Modified By Organization Details Last Modified Time Details Appointments None recorded. Lab copper, serum or plasma 2023 JESSICA [facility], [address], [address], [place], [address], 18:36:40 selenium, quantitativ e, blood 2023 RAMAH [facility], [address], [address], [place], [address], 18:36:43 zinc, serum or plasma 2023 RAMAH [facility], [address], [address], [place], [address], 18:36:41 iron + TIBC + ferritin, serum 2023 RAMAH [facility], [address], [address], [place], [address], 18:36:28 folate, serum 2023 RAMAH [facility], [address], [address], [place], [address], 4 18:36:36 vitamin E, serum 2023 JESSICA [facility], [address], [address], [place], [address], 4 18:36:34 vitamin A (retinol), serum 2023 JESSICA [facility], [address], [address], [place], [address], 18:36:36 prealbumin, serum 2023 JESSICA [facility], [address], [address], [place], [address], 18:36:42 thiamine, QN, blood 2023 JESSICA [facility], [address], [address], [place], [address], 18:36:38 methylmalon ate, QN, serum or plasma 2023 JESSICA [facility], [address], [address], [place], [address], 18:36:39 vitamin D, 25-hydroxy, total, serum 2023 JESSICA [facility], [address], [address], [place], [address], 18:36:37 HbA1c (hemoglobin A1c), blood 2023 JESSICA [facility], [address], [address], [place], [address], 18:36:35 CBC w/ auto diff 2023 JESSICA [facility], [address], [address], [place], [address], 4 18:36:30 CMP, serum or plasma 2023 024 JESSICA [facility], [address], [address], [place], [address], 4 18:36:32 TSH + free T4, serum 2023 024 JESSICA [facility], [address], [address], [place], [address], 4 18:36:30 lipid panel, serum 2023 024 JESSICA [facility], [address], [address], [place], [address], 4 18:36:33 HbA1c (hemoglobin A1c), blood 2023 024 JESSICA [facility], [address], [address], [place], [address], 4 09:37:07 copper, serum or plasma 2023 024 JESSICA [facility], [address], [address], [place], [address], 4 09:37:10 selenium, quantitativ e, blood 2023 024 JESSICA [facility], [address], [address], [place], [address], 4 09:37:12 zinc, serum or plasma 2023 024 JESSICA [facility], [address], [address], [place], [address], 4 09:37:11 CBC w/ auto diff 2023 024 JESSICA [facility], [address], [address], [place], [address], 4 09:37:04 CMP, serum or plasma 2023 024 JESSICA [facility], [address], [address], [place], [address], 4 09:37:05 iron + TIBC + ferritin, serum 2023 024 JESSICA [facility], [address], [address], [place], [address], 4 09:37:03 folate, serum 2023 024 JESSICA [facility], [address], [address], [place], [address], 4 09:37:07 vitamin D, 25-hydroxy, total, serum 2023 024 JESSICA [facility], [address], [address], [place], [address], 4 09:37:09 vitamin E, serum 2023 024 JESSICA [facility], [address], [address], [place], [address], 4 09:37:06 vitamin A (retinol), serum 2023 024 [facility], [address], [address], [place], [address], 4 09:37:08 prealbumin, serum 2023 024 JESSICA [facility], [address], [address], [place], [address], 4 09:37:12 thiamine, QN, blood 2023 024 JESSICA [facility], [address], [address], [place], [address], 4 09:37:09 methylmalon ate, QN, serum or plasma 2023 024 [facility], [address], [address], [place], [address], 4 09:37:10 lipid panel, serum 2023 024 RAMAH [facility], [address], [address], [place], [address], 4 09:37:06 TSH + free T4, serum 2023 024 RAMAH [facility], [address], [address], [place], [address], 4 09:37:04 CBC w/ auto diff 2023 024 [facility], [address], [address], [place], [address], 4 04:36:46 CMP, serum or plasma 2023 024 [facility], [address], [address], [place], [address], 4 04:36:47 HbA1c (hemoglobin A1c), blood 2023 024 [facility], [address], [address], [place], [address], 4 04:36:48 Referral None recorded. Procedures None recorded. Surgeries None recorded. Imaging None recorded. Medication Orders famotidine 20 mg tablet 2023 024 [facility], [address], [address], 4 10:16:14 Lovenox 60 mg/0.6 mL subcutaneou s syringe 2023 024 [facility], [address], [address], 4 10:08:53 Neurontin 300 mg capsule 2023 024 [facility], [address] [place], [address], 4 08:20:32 Celebrex 100 mg capsule 2023 024 JESSICA [facility], [address] [place], [address], 4 09:29:18 Patient TargetsNo targets recorded. Patient InstructionsNo instructions recorded. Reason for Referral None Reported. Results Created Date Observation Date Name Description Value Unit Range Abnormal Flag Note LastModifiedBy Organization Detail LastModifiedTime 10/13/1910/14/2023 CBC WITH DIFFE RENTI AL/PL ATELE T WBC 8.7 x10e3 /uL 3.4-10 .8 Not Available [facility] ([facility]) [address] [place], [address], 10/14/2023 04:36:46 10/13/19 24 10/14/2023 CBC WITH DIFFE RENTI AL/PL ATELE T RBC 4.90 x10e6 /uL 3.77-5 .28 Not Available [facility] ([facility]) [address] [place], [address], 10/14/2023 04:36:46 10/13/19 24 10/14/2023 CBC WITH DIFFE RENTI AL/PL ATELE T hemoglobin 13.9 g/dL 11.1-1 5.9 Not Available [facility] ([facility]) [address] [place], [address], 10/14/2023 04:36:46 10/13/19 24 10/14/2023 CBC WITH DIFFE RENTI AL/PL ATELE T hematocrit 42.0 % 34.0-4 6.6 Not Available [facility] ([facility]) [address] [place], [address], 10/14/2023 04:36:46 10/13/19 24 10/14/2023 CBC WITH DIFFE RENTI AL/PL ATELE T MCV 86 fL 79-97 Not Available [facility] ([facility]) [address] [facility], [place], [address], 10/14/2023 04:36:46 10/13/19 24 10/14/2023 CBC WITH DIFFE RENTI AL/PL ATELE T MCH 28.4 pg 26.6-3 3.0 Not Available [facility] ([facility]) [address] [facility], [place], [address], 10/14/2023 04:36:46 10/13/19 24 10/14/2023 CBC WITH DIFFE RENTI AL/PL ATELE T MCHC 33.1 g/dL 31.5-3 5.7 Not Available [facility] ([facility]) [address] [facility], [place], [address], 10/14/2023 04:36:46 10/13/19 24 10/14/2023 CBC WITH DIFFE RENTI AL/PL ATELE T RDW 13.2 % 11.7-1 5.4 Not Available [facility] ([facility]) [address] [place], [address], 10/14/2023 04:36:46 10/13/19 24 10/14/2023 CBC WITH DIFFE RENTI AL/PL ATELE T platelets 229 x10e3 /uL 150-45 0 Not Available [facility] ([facility]) [address] [place], [address], 10/14/2023 04:36:46 10/13/19 24 10/14/2023 CBC WITH DIFFE RENTI AL/PL ATELE T neutrophils 55 % not estab. Not Available [facility] ([facility]) [address] [place], [address], 10/14/2023 04:36:46 10/13/19 24 10/14/2023 CBC WITH DIFFE RENTI AL/PL ATELE T lymphs 36 % not estab. Not Available [facility] ([facility]) [address] [facility], [place], [address], 10/14/2023 04:36:46 10/13/19 24 10/14/2023 CBC WITH DIFFE RENTI AL/PL ATELE T monocytes 6 % not estab. Not Available [facility] ([facility]) [address] [facility], [place], [address], 10/14/2023 04:36:46 10/13/19 24 10/14/2023 CBC WITH DIFFE RENTI AL/PL ATELE T eos 2 % not estab. Not Available [facility] ([facility]) [address] [facility], [place], [address], 10/14/2023 04:36:46 10/13/19 24 10/14/2023 CBC WITH DIFFE RENTI AL/PL ATELE T basos 1 % not estab. Not Available [facility] ([facility]) [address] [place], [address], 10/14/2023 04:36:46 10/13/19 24 10/14/2023 CBC WITH DIFFE RENTI AL/PL ATELE T immature cells PHYSICAL SECURITY SPECIALIST Not Available [facility] ([facility]) [address] [place], [address], 10/14/2023 04:36:46 10/13/19 24 10/14/2023 CBC WITH DIFFE RENTI AL/PL ATELE T neutrophils (absolute) 4.9 x10e3 /uL 1.4-7. 0 Not Available [facility] ([facility]) [address] [place], [address], 10/14/2023 04:36:46 10/13/19 24 10/14/2023 CBC WITH DIFFE RENTI AL/PL ATELE T lymphs (absolute) 3.1 x10e3 /uL 0.7-3. 1 Not Available [facility] ([facility]) [address] [facility], [place], [address], 10/14/2023 04:36:46 10/13/19 24 10/14/2023 CBC WITH DIFFE RENTI AL/PL ATELE T monocytes(ab solute) 0.5 x10e3 /uL 0.1-0. 9 Not Available [facility] ([facility]) [address] [facility], [place], [address], 10/14/2023 04:36:46 10/13/19 24 10/14/2023 CBC WITH DIFFE RENTI AL/PL ATELE T eos (absolute) 0.2 x10e3 /uL 0.0-0. 4 Not Available [facility] ([facility]) [address] [facility], [place], [address], 10/14/2023 04:36:46 10/13/19 24 10/14/2023 CBC WITH DIFFE RENTI AL/PL ATELE T baso (absolute) 0.0 x10e3 /uL 0.0-0. 2 Not Available [facility] ([facility]) [address] [facility], [place], [address], 10/14/2023 04:36:46 10/13/19 24 10/14/2023 CBC WITH DIFFE RENTI AL/PL ATELE T immature granulocytes 0 % not estab. Not Available [facility] ([facility]) [address] [facility], [place], [address], 10/14/2023 04:36:46 10/13/19 24 10/14/2023 CBC WITH DIFFE RENTI AL/PL ATELE T immature grans (abs) 0.0 x10e3 /uL 0.0-0. 1 Not Available [facility] ([facility]) [address] [place], [address], 10/14/2023 04:36:46 10/13/19 24 10/14/2023 CBC WITH DIFFE RENTI AL/PL ATELE T NRBC PHYSICAL SECURITY SPECIALIST Not Available [facility] ([facility]) [address] [facility], [place], [address], 10/14/2023 04:36:46 10/13/19 24 10/14/2023 CBC WITH DIFFE RENTI AL/PL ATELE T hematology comments: PHYSICAL SECURITY SPECIALIST Not Available [facility] ([facility]) [address] [facility], [place], [address], 10/14/2023 04:36:46 10/13/19 24 10/14/2023 COMP. METAB OLIC PANEL (14) glucose 112 mg/dL 70-99 above high normal Not Available [facility] ([facility]) [address] [facility], [place], [address], 10/14/2023 04:36:47 10/13/19 24 10/14/2023 COMP. METAB OLIC PANEL (14) BUN 12 mg/dL 6-20 Not Available [facility] ([facility]) [address] [place], [address], 10/14/2023 04:36:47 10/13/19 24 10/14/2023 COMP. METAB OLIC PANEL (14) creatinine 0.54 mg/dL 0.57-1 .00 below low normal Not Available [facility] ([facility]) [address] [facility], [place], [address], 10/14/2023 04:36:47 10/13/19 24 10/14/2023 COMP. METAB OLIC PANEL (14) eGFR 132 mL/mi n/1.7 3 >59 Not Available [facility] ([facility]) [address] [place], [address], 10/14/2023 04:36:47 10/13/19 24 10/14/2023 COMP. METAB OLIC PANEL (14) BUN/creatini ne ratio 22 9-23 Not Available [facility] ([facility]) [address] [facility] [place], [address], 10/14/2023 04:36:47 10/13/19 24 10/14/2023 COMP. METAB OLIC PANEL (14) sodium 139 mmol/ L 134-14 4 Not Available [facility] ([facility]) [address] [facility] [place], [address], 10/14/2023 04:36:47 10/13/19 24 10/14/2023 COMP. METAB OLIC PANEL (14) potassium 4.3 mmol/ L 3.5-5. 2 Not Available [facility] ([facility]) [address] [facility] [place], [address], 10/14/2023 04:36:47 10/13/19 24 10/14/2023 COMP. METAB OLIC PANEL (14) chloride 102 mmol/ L 96-106 Not Available [facility] ([facility]) [address] [facility] [place], [address], 10/14/2023 04:36:47 10/13/19 24 10/14/2023 COMP. METAB OLIC PANEL (14) carbon dioxide, total 21 mmol/ L 20-29 Not Available [facility] ([facility]) [address] [facility] [place], [address], 10/14/2023 04:36:47 10/13/19 24 10/14/2023 COMP. METAB OLIC PANEL (14) calcium 9.9 mg/dL 8.7-10 .2 Not Available [facility] ([facility]) [address] [facility] [place], [address], 10/14/2023 04:36:47 10/13/19 24 10/14/2023 COMP. METAB OLIC PANEL (14) protein, total 7.9 g/dL 6.0-8. 5 Not Available [facility] ([facility]) [address] [place], [address], 10/14/2023 04:36:47 10/13/19 24 10/14/2023 COMP. METAB OLIC PANEL (14) albumin 4.4 g/dL 4.0-5. 0 Not Available [facility] ([facility]) [address] [place], [address], 10/14/2023 04:36:47 10/13/19 24 10/14/2023 COMP. METAB OLIC PANEL (14) globulin, total 3.5 g/dL 1.5-4. 5 Not Available [facility] ([facility]) [address] [place], [address], 10/14/2023 04:36:47 10/13/19 24 10/14/2023 COMP. METAB OLIC PANEL (14) A/G ratio 1.3 Not Available [facility] ([facility]) [address] [place], [address], 10/14/2023 04:36:47 10/13/19 24 10/14/2023 COMP. METAB OLIC PANEL (14) bilirubin, total 0.4 mg/dL 0.0-1. 2 Not Available [facility] ([facility]) [address] [place], [address], 10/14/2023 04:36:47 10/13/19 24 10/14/2023 COMP. METAB OLIC PANEL (14) alkaline phosphatase 61 IU/L 44-121 Not Available [facility] ([facility]) [address] [place], [address], 10/14/2023 04:36:47 10/13/19 24 10/14/2023 COMP. METAB OLIC PANEL (14) AST (SGOT) 28 IU/L 0-40 Not Available [facility] ([facility]) [address] [place], [address], 10/14/2023 04:36:47 10/13/19 24 10/14/2023 COMP. METAB OLIC PANEL (14) ALT (SGPT) 31 IU/L 0-32 Not Available [facility] ([facility]) [address] [place], [address], 10/14/2023 04:36:47 10/13/19 24 10/14/2023 HEMOG LOBIN A1C hemoglobin A1C 6.1 % 4.8-5. 6 above high normal Predi abete s: 5.7 - 6.4 Diabe vielka: >6.4 Glyce toni contr ol for adult s with diabe vielka: <7.0 Not Available [facility] ([facility]) [address] [place], [address], 10/14/2023 04:36:48 11/28/19 24 11/29/2023 FE+TI BC+FE R iron bind.cap.(TI BC) 343 ug/dL 250-45 0 normal Not Available [facility] ([facility]) [address] [place], [address], 12/05/2023 09:37:03 11/28/19 24 11/29/2023 FE+TI BC+FE R UIBC 293 ug/dL 131-42 5 normal Not Available [facility] ([facility]) [address] [place], [address], 12/05/2023 09:37:03 11/28/19 24 11/29/2023 FE+TI BC+FE R iron 50 ug/dL 27-159 normal Not Available [facility] ([facility]) [address] [place], [address], 12/05/2023 09:37:03 11/28/19 24 11/29/2023 FE+TI BC+FE R iron saturation 15 % 15-55 normal Not Available [facility] ([facility]) [address] [place], [address], 12/05/2023 09:37:03 11/28/19 24 11/29/2023 FE+TI BC+FE R ferritin 54 NG/mL 15-150 normal Not Available [facility] ([facility]) [address] [facility] [place], [address], 12/05/2023 09:37:03 11/28/19 24 11/29/2023 TSH+F REE T4 TSH 4.180 uIU/m L 0.450- 4.500 normal Not Available [facility] ([facility]) [address] [facility] [place], [address], 12/05/2023 09:37:04 11/28/19 24 11/29/2023 TSH+F REE T4 T4,free(dire ct) 1.14 NG/dL 0.82-1 .77 normal Not Available [facility] ([facility]) [address] [facility] [place], [address], 12/05/2023 09:37:04 11/28/19 24 11/29/2023 CBC WITH DIFFE RENTI AL/PL ATELE T WBC 5.6 x10e3 /uL 3.4-10 .8 normal Not Available [facility] ([facility]) [address] [facility] [place], [address], 12/05/2023 09:37:04 11/28/19 24 11/29/2023 CBC WITH DIFFE RENTI AL/PL ATELE T RBC 4.75 x10e6 /uL 3.77-5 .28 normal Not Available [facility] ([facility]) [address] [place], [address], 12/05/2023 09:37:04 11/28/19 24 11/29/2023 CBC WITH DIFFE RENTI AL/PL ATELE T hemoglobin 13.5 g/dL 11.1-1 5.9 normal Not Available [facility] ([facility]) [address] [place], [address], 12/05/2023 09:37:04 11/28/19 24 11/29/2023 CBC WITH DIFFE RENTI AL/PL ATELE T hematocrit 41.5 % 34.0-4 6.6 normal Not Available [facility] ([facility]) [address] [place], [address], 12/05/2023 09:37:04 11/28/19 24 11/29/2023 CBC WITH DIFFE RENTI AL/PL ATELE T MCV 87 fL 79-97 normal Not Available [facility] ([facility]) [address] [place], [address], 12/05/2023 09:37:04 11/28/19 24 11/29/2023 CBC WITH DIFFE RENTI AL/PL ATELE T MCH 28.4 pg 26.6-3 3.0 normal Not Available [facility] ([facility]) [address] [place], [address], 12/05/2023 09:37:04 11/28/19 24 11/29/2023 CBC WITH DIFFE RENTI AL/PL ATELE T MCHC 32.5 g/dL 31.5-3 5.7 normal Not Available [facility] ([facility]) [address] [place], [address], 12/05/2023 09:37:04 11/28/19 24 11/29/2023 CBC WITH DIFFE RENTI AL/PL ATELE T RDW 14.3 % 11.7-1 5.4 Not Available [facility] ([facility]) [address] [place], [address], 12/05/2023 09:37:04 11/28/19 24 11/29/2023 CBC WITH DIFFE RENTI AL/PL ATELE T platelets 143 x10e3 /uL 150-45 0 below low normal Not Available [facility] ([facility]) [address] [place], [address], 12/05/2023 09:37:04 11/28/19 24 11/29/2023 CBC WITH DIFFE RENTI AL/PL ATELE T neutrophils 41 % not estab. normal Not Available [facility] ([facility]) [address] [facility], [place], [address], 12/05/2023 09:37:04 11/28/19 24 11/29/2023 CBC WITH DIFFE RENTI AL/PL ATELE T lymphs 46 % not estab. normal Not Available [facility] ([facility]) [address] [facility], [place], [address], 12/05/2023 09:37:04 11/28/19 24 11/29/2023 CBC WITH DIFFE RENTI AL/PL ATELE T monocytes 8 % not estab. normal Not Available [facility] ([facility]) [address] [facility], [place], [address], 12/05/2023 09:37:04 11/28/19 24 11/29/2023 CBC WITH DIFFE RENTI AL/PL ATELE T eos 4 % not estab. normal Not Available [facility] ([facility]) [address] [facility], [place], [address], 12/05/2023 09:37:04 11/28/19 24 11/29/2023 CBC WITH DIFFE RENTI AL/PL ATELE T basos 1 % not estab. normal Not Available [facility] ([facility]) [address] [facility], [place], [address], 12/05/2023 09:37:04 11/28/19 24 11/29/2023 CBC WITH DIFFE RENTI AL/PL ATELE T immature cells PHYSICAL SECURITY SPECIALIST Not Available [facility] ([facility]) [address] [place], [address], 12/05/2023 09:37:04 11/28/19 24 11/29/2023 CBC WITH DIFFE RENTI AL/PL ATELE T neutrophils (absolute) 2.3 x10e3 /uL 1.4-7. 0 normal Not Available [facility] ([facility]) [address] [facility], [place], [address], 12/05/2023 09:37:04 11/28/19 24 11/29/2023 CBC WITH DIFFE RENTI AL/PL ATELE T lymphs (absolute) 2.6 x10e3 /uL 0.7-3. 1 normal Not Available [facility] ([facility]) [address] [facility], [place], [address], 12/05/2023 09:37:04 11/28/19 24 11/29/2023 CBC WITH DIFFE RENTI AL/PL ATELE T monocytes(ab solute) 0.4 x10e3 /uL 0.1-0. 9 normal Not Available [facility] ([facility]) [address] [facility], [place], [address], 12/05/2023 09:37:04 11/28/19 24 11/29/2023 CBC WITH DIFFE RENTI AL/PL ATELE T eos (absolute) 0.2 x10e3 /uL 0.0-0. 4 normal Not Available [facility] ([facility]) [address] [facility], [place], [address], 12/05/2023 09:37:04 11/28/19 24 11/29/2023 CBC WITH DIFFE RENTI AL/PL ATELE T baso (absolute) 0.0 x10e3 /uL 0.0-0. 2 normal Not Available [facility] ([facility]) [address] [facility], [place], [address], 12/05/2023 09:37:04 11/28/19 24 11/29/2023 CBC WITH DIFFE RENTI AL/PL ATELE T immature granulocytes 0 % not estab. Not Available [facility] ([facility]) [address] [facility], [place], [address], 12/05/2023 09:37:04 11/28/19 24 11/29/2023 CBC WITH DIFFE RENTI AL/PL ATELE T immature grans (abs) 0.0 x10e3 /uL 0.0-0. 1 Not Available [facility] ([facility]) [address] [facility], [place], [address], 12/05/2023 09:37:04 11/28/19 24 11/29/2023 CBC WITH DIFFE RENTI AL/PL ATELE T NRBC PHYSICAL SECURITY SPECIALIST Not Available [facility] ([facility]) [address] [facility], [place], [address], 12/05/2023 09:37:04 11/28/19 24 11/29/2023 CBC WITH DIFFE RENTI AL/PL ATELE T hematology comments: PHYSICAL SECURITY SPECIALIST Not Available [facility] ([facility]) [address] [facility], [place], [address], 12/05/2023 09:37:04 11/28/19 24 11/29/2023 COMP. METAB OLIC PANEL (14) glucose 95 mg/dL 70-99 normal Not Available [facility] ([facility]) [address] [facility], [place], [address], 12/05/2023 09:37:05 11/28/19 24 11/29/2023 COMP. METAB OLIC PANEL (14) BUN 9 mg/dL 6-20 normal Not Available [facility] ([facility]) [address] [facility], [place], [address], 12/05/2023 09:37:05 11/28/19 24 11/29/2023 COMP. METAB OLIC PANEL (14) creatinine 0.52 mg/dL 0.57-1 .00 below low normal Not Available [facility] ([facility]) [address] [facility], [place], [address], 12/05/2023 09:37:05 11/28/19 24 11/29/2023 COMP. METAB OLIC PANEL (14) eGFR 133 mL/mi n/1.7 3 >59 normal Not Available [facility] ([facility]) [address] [place], [address], 12/05/2023 09:37:05 11/28/19 24 11/29/2023 COMP. METAB OLIC PANEL (14) BUN/creatini ne ratio 17 9-23 normal Not Available [facility] ([facility]) [address] [place], [address], 12/05/2023 09:37:05 11/28/19 24 11/29/2023 COMP. METAB OLIC PANEL (14) sodium 141 mmol/ L 134-14 4 normal Not Available [facility] ([facility]) [address] [place], [address], 12/05/2023 09:37:05 11/28/19 24 11/29/2023 COMP. METAB OLIC PANEL (14) potassium 3.7 mmol/ L 3.5-5. 2 normal Not Available [facility] ([facility]) [address] [place], [address], 12/05/2023 09:37:05 11/28/19 24 11/29/2023 COMP. METAB OLIC PANEL (14) chloride 106 mmol/ L 96-106 normal Not Available [facility] ([facility]) [address] [facility] [place], [address], 12/05/2023 09:37:05 11/28/19 24 11/29/2023 COMP. METAB OLIC PANEL (14) carbon dioxide, total 22 mmol/ L 20-29 normal Not Available [facility] ([facility]) [address] [facility] [place], [address], 12/05/2023 09:37:05 11/28/19 24 11/29/2023 COMP. METAB OLIC PANEL (14) calcium 9.4 mg/dL 8.7-10 .2 normal Not Available [facility] ([facility]) [address] [facility] [place], [address], 12/05/2023 09:37:05 11/28/19 24 11/29/2023 COMP. METAB OLIC PANEL (14) protein, total 6.7 g/dL 6.0-8. 5 normal Not Available [facility] ([facility]) [address] [place], [address], 12/05/2023 09:37:05 11/28/19 24 11/29/2023 COMP. METAB OLIC PANEL (14) albumin 4.2 g/dL 4.0-5. 0 normal Not Available [facility] ([facility]) [address] [place], [address], 12/05/2023 09:37:05 11/28/19 24 11/29/2023 COMP. METAB OLIC PANEL (14) globulin, total 2.5 g/dL 1.5-4. 5 Not Available [facility] ([facility]) [address] [place], [address], 12/05/2023 09:37:05 11/28/19 24 11/29/2023 COMP. METAB OLIC PANEL (14) bilirubin, total 0.4 mg/dL 0.0-1. 2 normal Not Available [facility] ([facility]) [address] [place], [address], 12/05/2023 09:37:05 11/28/19 24 11/29/2023 COMP. METAB OLIC PANEL (14) alkaline phosphatase 51 IU/L 44-121 normal Not Available [facility] ([facility]) [address] [place], [address], 12/05/2023 09:37:05 11/28/19 24 11/29/2023 COMP. METAB OLIC PANEL (14) AST (SGOT) 36 IU/L 0-40 normal Not Available [facility] ([facility]) [address] [place], [address], 12/05/2023 09:37:05 11/28/19 24 11/29/2023 COMP. METAB OLIC PANEL (14) ALT (SGPT) 35 IU/L 0-32 above high normal Not Available [facility] ([facility]) [address] [facility] [place], [address], 12/05/2023 09:37:05 11/28/19 24 11/29/2023 LIPID PANEL cholesterol, total 140 mg/dL 100-19 9 normal Not Available [facility] ([facility]) [address] [facility] [place], [address], 12/05/2023 09:37:06 11/28/19 24 11/29/2023 LIPID PANEL triglyceride s 143 mg/dL 0-149 normal Not Available [facility] ([facility]) [address] [facility] [place], [address], 12/05/2023 09:37:06 11/28/19 24 11/29/2023 LIPID PANEL HDL cholesterol 30 mg/dL >39 below low normal Not Available [facility] ([facility]) [address] [facility] [place], [address], 12/05/2023 09:37:06 11/28/19 24 11/29/2023 LIPID PANEL VLDL cholesterol sb 25 mg/dL 5-40 Not Available [facility] ([facility]) [address] [place], [address], 12/05/2023 09:37:06 11/28/19 24 11/29/2023 LIPID PANEL LDL chol calc ([facility]) 85 mg/dL 0-99 Not Available [facility] ([facility]) [address] [facility] [place], [address], 12/05/2023 09:37:06 11/28/19 24 11/29/2023 LIPID PANEL LDL calc comment: PHYSICAL SECURITY SPECIALIST Not Available [facility] ([facility]) [address] [place], [address], 12/05/2023 09:37:06 11/28/19 24 12/02/2023 VITAM IN E vitamin E(alpha tocopherol) 6.2 mg/L 5.9-19 .4 Not Available [facility] ([facility]) [address] [facility], [place], [address], 12/05/2023 09:37:06 11/28/19 24 12/02/2023 VITAM IN E vitamin E(gamma tocopherol) 1.2 mg/L 0.7-4. 9 Refer ence inter vals for alpha and gamma -toco phero l deter mined from [facility] and Nutri tion Exami natio n Surve y, 2004- 2005. Indiv idual s with alpha -toco phero l level s less than 5.0 mg/L are consi dered vitam in E defic ient. Not Available [facility] ([facility]) [address] [facility], [place], [address], 12/05/2023 09:37:06 11/28/19 24 11/29/2023 HEMOG LOBIN A1C hemoglobin A1C 5.7 % 4.8-5. 6 above high normal Predi abete s: 5.7 - 6.4 Diabe vielka: >6.4 Glyce toni contr ol for adult s with diabe vielka: <7.0 Not Available [facility] ([facility]) [address] [facility], [place], [address], 12/05/2023 09:37:07 11/28/19 24 11/29/2023 FOLAT E (FOLI C ACID) , SERUM folate (folic acid), serum 5.1 NG/mL >3.0 normal A serum folat e amarjit ntrat ion of less than 3.1 ng/mL is consi dered to repre sent clini sb defic iency . Not Available [facility] ([facility]) [address] [facility], [place], [address], 12/05/2023 09:37:07 11/28/19 24 12/02/2023 VITAM IN A, SERUM vitamin A 27.4 ug/dL 18.9-5 7.3 Refer ence inter vals for vitam in A deter mined from [facility] inter nal studi es. Indiv idual s with vitam in A less than 20 ug/dL are consi dered vitam in A defic ient and those with serum amarjit ntrat ions less than 10 ug/dL are consi dered sever vivian defic ient. This test was devel oped and its perfo rmanc e twin cteri stics deter mined by [facility]. It has not been clear ed or appro brent by the Food and Drug Admin istra tion. Not Available [facility] ([facility]) [address] [facility], [place], [address], 12/05/2023 09:37:08 11/28/19 24 11/29/2023 VITAM IN D, 25-HY DROXY vitamin D, 25-hydroxy 14.3 NG/mL 30.0-1 00.0 below low normal Vitam in D defic iency has been defin ed by the Insti tute of Medic ine and an Endoc rine Socie ty pract ice guide line as a level of serum 25-OH vitam in D less than 20 ng/mL (1,2) . The Endoc rine Socie ty went on to furth er defin e vitam in D insuf ficie ncy as a level betwe en 21 and 29 ng/mL (2). 1. IOM (Inst itute of Medic ine). 2009. Dieta ry refer ence intak es for calci um and D. Rebecca chavez [place]: The Natio nal [employer] . 2. Katja slater MF, Alejandro bright [place], Saúl off-F rachelle i FINK, et al. Evalu ation , treat ment, and preve ntion of vitam in D defic iency : an Endoc rine Socie ty clini sb pract ice guide line. JCEM. 2010; 96(7) :1911 -30. Not Available [facility] ([facility]) [address] [facility], [place], [address], 12/05/2023 09:37:09 11/28/19 24 12/01/2023 VITAM IN B1 (THIA MINE) , BLOOD vit. B1, whole blood 121.6 nmol/ L 66.5-2 00.0 Not Available [facility] ([facility]) [address] [facility], [place], [address], 12/05/2023 09:37:09 11/28/19 24 12/05/2023 METHY LMALO HUAN ACID, SERUM methylmaloni c acid, serum 95 nmol/ L 0-378 Not Available [facility] ([facility]) [address] [facility], [place], [address], 12/05/2023 09:37:10 11/28/19 24 11/30/2023 COPPE R, SERUM OR PLASM A copper, serum or plasma 95 ug/dL 80-158 Detec tion Limit = 5 Not Available [facility] ([facility]) [address] [facility], [place], [address], 12/05/2023 09:37:10 11/28/19 24 11/30/2023 ZINC, PLASM A OR SERUM zinc, plasma or serum 89 ug/dL 44-115 normal Detec tion Limit = 5 Not Available [facility] ([facility]) [address] [facility], [place], [address], 12/05/2023 09:37:11 11/28/19 24 11/29/2023 PREAL BUMIN prealbumin 18 mg/dL 14-35 Not Available [facility] ([facility]) [address] [place], [address], 12/05/2023 09:37:12 11/28/19 24 11/30/2023 SELEN IUM, BLOOD selenium, blood 205 ug/L 100-34 0 Detec tion Limit = 10 Not Available [facility] ([facility]) [address] [place], [address], 12/05/2023 09:37:12 02/06/20 24 02/07/2024 FE+TI BC+FE R iron bind.cap.(TI BC) 331 ug/dL 250-45 0 normal Not Available [facility] ([facility]) [address] [place], [address], 02/11/2024 18:36:28 02/06/2002/07/2024 FE+TI BC+FE R UIBC 247 ug/dL 131-42 5 normal Not Available [facility] ([facility]) [address] [place], [address], 02/11/2024 18:36:28 02/06/20 24 02/07/2024 FE+TI BC+FE R iron 84 ug/dL 27-159 normal Not Available [facility] ([facility]) [address] [place], [address], 02/11/2024 18:36:28 02/06/20 24 02/07/2024 FE+TI BC+FE R iron saturation 25 % 15-55 normal Not Available [facility] ([facility]) [address] [place], [address], 02/11/2024 18:36:28 02/06/20 24 02/07/2024 FE+TI BC+FE R ferritin 68 NG/mL 15-150 normal Not Available [facility] ([facility]) [address] [place], [address], 02/11/2024 18:36:28 02/06/20 24 02/07/2024 TSH+F REE T4 TSH 2.380 uIU/m L 0.450- 4.500 normal Not Available [facility] ([facility]) [address] [place], [address], 02/11/2024 18:36:29 02/06/20 24 02/07/2024 TSH+F REE T4 T4,free(dire ct) 1.05 NG/dL 0.82-1 .77 normal Not Available [facility] ([facility]) [address] [place], [address], 02/11/2024 18:36:29 02/06/2002/07/2024 CBC WITH DIFFE RENTI AL/PL ATELE T WBC 6.3 x10e3 /uL 3.4-10 .8 normal Not Available [facility] ([facility]) [address] [place], [address], 02/11/2024 18:36:30 02/06/2002/07/2024 CBC WITH DIFFE RENTI AL/PL ATELE T RBC 4.51 x10e6 /uL 3.77-5 .28 normal Not Available [facility] ([facility]) [address] [place], [address], 02/11/2024 18:36:30 02/06/2002/07/2024 CBC WITH DIFFE RENTI AL/PL ATELE T hemoglobin 13.2 g/dL 11.1-1 5.9 normal Not Available [facility] ([facility]) [address] [place], [address], 02/11/2024 18:36:30 02/06/20 24 02/07/2024 CBC WITH DIFFE RENTI AL/PL ATELE T hematocrit 39.7 % 34.0-4 6.6 normal Not Available [facility] ([facility]) [address] [place], [address], 02/11/2024 18:36:30 02/06/20 24 02/07/2024 CBC WITH DIFFE RENTI AL/PL ATELE T MCV 88 fL 79-97 normal Not Available [facility] ([facility]) [address] [place], [address], 02/11/2024 18:36:30 02/06/20 24 02/07/2024 CBC WITH DIFFE RENTI AL/PL ATELE T MCH 29.3 pg 26.6-3 3.0 normal Not Available [facility] ([facility]) [address] [place], [address], 02/11/2024 18:36:30 02/06/20 24 02/07/2024 CBC WITH DIFFE RENTI AL/PL ATELE T MCHC 33.2 g/dL 31.5-3 5.7 normal Not Available [facility] ([facility]) [address] [facility], [place], [address], 02/11/2024 18:36:30 02/06/20 24 02/07/2024 CBC WITH DIFFE RENTI AL/PL ATELE T RDW 13.8 % 11.7-1 5.4 Not Available [facility] ([facility]) [address] [place], [address], 02/11/2024 18:36:30 02/06/20 24 02/07/2024 CBC WITH DIFFE RENTI AL/PL ATELE T platelets 195 x10e3 /uL 150-45 0 normal Not Available [facility] ([facility]) [address] [place], [address], 02/11/2024 18:36:30 02/06/20 24 02/07/2024 CBC WITH DIFFE RENTI AL/PL ATELE T neutrophils 52 % not estab. normal Not Available [facility] ([facility]) [address] [place], [address], 02/11/2024 18:36:30 02/06/20 24 02/07/2024 CBC WITH DIFFE RENTI AL/PL ATELE T lymphs 39 % not estab. normal Not Available [facility] ([facility]) [address] [place], [address], 02/11/2024 18:36:30 02/06/20 24 02/07/2024 CBC WITH DIFFE RENTI AL/PL ATELE T monocytes 7 % not estab. normal Not Available [facility] ([facility]) [address] [place], [address], 02/11/2024 18:36:30 02/06/20 24 02/07/2024 CBC WITH DIFFE RENTI AL/PL ATELE T eos 2 % not estab. normal Not Available [facility] ([facility]) [address] [place], [address], 02/11/2024 18:36:30 02/06/20 24 02/07/2024 CBC WITH DIFFE RENTI AL/PL ATELE T basos 0 % not estab. normal Not Available [facility] ([facility]) [address] [facility], [place], [address], 02/11/2024 18:36:30 02/06/20 24 02/07/2024 CBC WITH DIFFE RENTI AL/PL ATELE T immature cells PHYSICAL SECURITY SPECIALIST Not Available [facility] ([facility]) [address] [place], [address], 02/11/2024 18:36:30 02/06/20 24 02/07/2024 CBC WITH DIFFE RENTI AL/PL ATELE T neutrophils (absolute) 3.3 x10e3 /uL 1.4-7. 0 normal Not Available [facility] ([facility]) [address] [place], [address], 02/11/2024 18:36:30 02/06/20 24 02/07/2024 CBC WITH DIFFE RENTI AL/PL ATELE T lymphs (absolute) 2.5 x10e3 /uL 0.7-3. 1 normal Not Available [facility] ([facility]) [address] [place], [address], 02/11/2024 18:36:30 02/06/20 24 02/07/2024 CBC WITH DIFFE RENTI AL/PL ATELE T monocytes(ab solute) 0.4 x10e3 /uL 0.1-0. 9 normal Not Available [facility] ([facility]) [address] [facility], [place], [address], 02/11/2024 18:36:30 02/06/20 24 02/07/2024 CBC WITH DIFFE RENTI AL/PL ATELE T eos (absolute) 0.1 x10e3 /uL 0.0-0. 4 normal Not Available [facility] ([facility]) [address] [facility], [place], [address], 02/11/2024 18:36:30 02/06/20 24 02/07/2024 CBC WITH DIFFE RENTI AL/PL ATELE T baso (absolute) 0.0 x10e3 /uL 0.0-0. 2 normal Not Available [facility] ([facility]) [address] [facility], [place], [address], 02/11/2024 18:36:30 02/06/20 24 02/07/2024 CBC WITH DIFFE RENTI AL/PL ATELE T immature granulocytes 0 % not estab. Not Available [facility] ([facility]) [address] [facility], [place], [address], 02/11/2024 18:36:30 02/06/20 24 02/07/2024 CBC WITH DIFFE RENTI AL/PL ATELE T immature grans (abs) 0.0 x10e3 /uL 0.0-0. 1 Not Available [facility] ([facility]) [address] [facility], [place], [address], 02/11/2024 18:36:30 02/06/20 24 02/07/2024 CBC WITH DIFFE RENTI AL/PL ATELE T NRBC PHYSICAL SECURITY SPECIALIST Not Available [facility] ([facility]) [address] [facility], [place], [address], 02/11/2024 18:36:30 02/06/20 24 02/07/2024 CBC WITH DIFFE RENTI AL/PL ATELE T hematology comments: PHYSICAL SECURITY SPECIALIST Not Available [facility] ([facility]) [address] [facility], [place], [address], 02/11/2024 18:36:30 02/06/20 24 02/07/2024 COMP. METAB OLIC PANEL (14) glucose 96 mg/dL 70-99 normal Not Available [facility] ([facility]) [address] [facility] [place], [address], 02/11/2024 18:36:32 02/06/20 24 02/07/2024 COMP. METAB OLIC PANEL (14) BUN 14 mg/dL 6-20 normal Not Available [facility] ([facility]) [address] [facility] [place], [address], 02/11/2024 18:36:32 02/06/20 24 02/07/2024 COMP. METAB OLIC PANEL (14) creatinine 0.55 mg/dL 0.57-1 .00 below low normal Not Available [facility] ([facility]) [address] [facility] [place], [address], 02/11/2024 18:36:32 02/06/20 24 02/07/2024 COMP. METAB OLIC PANEL (14) eGFR 131 mL/mi n/1.7 3 >59 normal Not Available [facility] ([facility]) [address] [facility] [place], [address], 02/11/2024 18:36:32 02/06/20 24 02/07/2024 COMP. METAB OLIC PANEL (14) BUN/creatini ne ratio 25 9-23 above high normal Not Available [facility] ([facility]) [address] [facility] [place], [address], 02/11/2024 18:36:32 02/06/20 24 02/07/2024 COMP. METAB OLIC PANEL (14) sodium 139 mmol/ L 134-14 4 normal Not Available [facility] ([facility]) [address] [facility] [place], [address], 02/11/2024 18:36:32 02/06/20 24 02/07/2024 COMP. METAB OLIC PANEL (14) potassium 4.0 mmol/ L 3.5-5. 2 normal Not Available [facility] ([facility]) [address] [facility] [place], [address], 02/11/2024 18:36:32 02/06/20 24 02/07/2024 COMP. METAB OLIC PANEL (14) chloride 103 mmol/ L 96-106 normal Not Available [facility] ([facility]) [address] [facility] [place], [address], 02/11/2024 18:36:32 02/06/20 24 02/07/2024 COMP. METAB OLIC PANEL (14) carbon dioxide, total 23 mmol/ L 20-29 normal Not Available [facility] ([facility]) [address] [facility] [place], [address], 02/11/2024 18:36:32 02/06/20 24 02/07/2024 COMP. METAB OLIC PANEL (14) calcium 9.8 mg/dL 8.7-10 .2 normal Not Available [facility] ([facility]) [address] [facility] [place], [address], 02/11/2024 18:36:32 02/06/20 24 02/07/2024 COMP. METAB OLIC PANEL (14) protein, total 7.1 g/dL 6.0-8. 5 normal Not Available [facility] ([facility]) [address] [facility] [place], [address], 02/11/2024 18:36:32 02/06/20 24 02/07/2024 COMP. METAB OLIC PANEL (14) albumin 4.3 g/dL 4.0-5. 0 normal Not Available [facility] ([facility]) [address] [facility] [place], [address], 02/11/2024 18:36:32 02/06/20 24 02/07/2024 COMP. METAB OLIC PANEL (14) globulin, total 2.8 g/dL 1.5-4. 5 Not Available [facility] ([facility]) [address] [facility] [place], [address], 02/11/2024 18:36:32 02/06/20 24 02/07/2024 COMP. METAB OLIC PANEL (14) bilirubin, total 0.4 mg/dL 0.0-1. 2 normal Not Available [facility] ([facility]) [address] [facility] [place], [address], 02/11/2024 18:36:32 02/06/20 24 02/07/2024 COMP. METAB OLIC PANEL (14) alkaline phosphatase 63 IU/L 44-121 normal Not Available [facility] ([facility]) [address] [place], [address], 02/11/2024 18:36:32 02/06/20 24 02/07/2024 COMP. METAB OLIC PANEL (14) AST (SGOT) 26 IU/L 0-40 normal Not Available [facility] ([facility]) [address] [place], [address], 02/11/2024 18:36:32 02/06/20 24 02/07/2024 COMP. METAB OLIC PANEL (14) ALT (SGPT) 20 IU/L 0-32 normal Not Available [facility] ([facility]) [address] [place], [address], 02/11/2024 18:36:32 02/06/20 24 02/07/2024 LIPID PANEL cholesterol, total 145 mg/dL 100-19 9 normal Not Available [facility] ([facility]) [address] [facility], [place], [address], 02/11/2024 18:36:33 02/06/20 24 02/07/2024 LIPID PANEL triglyceride s 130 mg/dL 0-149 normal Not Available [facility] ([facility]) [address] [place], [address], 02/11/2024 18:36:33 02/06/20 24 02/07/2024 LIPID PANEL HDL cholesterol 32 mg/dL >39 below low normal Not Available [facility] ([facility]) [address] [place], [address], 02/11/2024 18:36:33 02/06/20 24 02/07/2024 LIPID PANEL VLDL cholesterol sb 23 mg/dL 5-40 Not Available [facility] ([facility]) [address] [place], [address], 02/11/2024 18:36:33 02/06/20 24 02/07/2024 LIPID PANEL LDL chol calc ([facility]) 90 mg/dL 0-99 Not Available [facility] ([facility]) [address] [place], [address], 02/11/2024 18:36:33 02/06/20 24 02/07/2024 LIPID PANEL LDL calc comment: PHYSICAL SECURITY SPECIALIST Not Available [facility] ([facility]) [address] [place], [address], 02/11/2024 18:36:33 02/06/20 24 02/09/2024 VITAM IN E vitamin E(alpha tocopherol) 10.0 mg/L 5.9-19 .4 Not Available [facility] ([facility]) [address] [place], [address], 02/11/2024 18:36:34 02/06/20 24 02/09/2024 VITAM IN E vitamin E(gamma tocopherol) 0.6 mg/L 0.7-4. 9 below low normal Refer ence inter vals for alpha and gamma -toco phero l deter mined from [facility] and Nutri tion Exami natio n Surve y, 20042005. Indiv idual s with alpha -toco phero l level s less than 5.0 mg/L are consi dered vitam in E defic ient. Not Available [facility] ([facility]) [address] [facility], [place], [address], 02/11/2024 18:36:34 02/06/20 24 02/07/2024 HEMOG LOBIN A1C hemoglobin A1C 5.5 % 4.8-5. 6 normal Predi abete s: 5.7 - 6.4 Diabe vielka: >6.4 Glyce toni contr ol for adult s with diabe vielka: <7.0 Not Available [facility] ([facility]) [address] [facility], [place], [address], 02/11/2024 18:36:35 02/06/20 24 02/07/2024 FOLAT E (FOLI C ACID) , SERUM folate (folic acid), serum 8.2 NG/mL >3.0 normal A serum folat e amarjit ntrat ion of less than 3.1 ng/mL is consi dered to repre sent clini sb defic iency . Not Available [facility] ([facility]) [address] [facility], [place], [address], 02/11/2024 18:36:36 02/06/20 24 02/09/2024 VITAM IN A, SERUM vitamin A 27.5 ug/dL 18.9-5 7.3 Refer ence inter vals for vitam in A deter mined from [facility] inter nal studi es. Indiv idual s with vitam in A less than 20 ug/dL are consi dered vitam in A defic ient and those with serum amarjit ntrat ions less than 10 ug/dL are consi dered sever vivian defic ient. This test was devel oped and its perfo rmanc e twin cteri stics deter mined by [facility]. It has not been clear ed or appro brent by the Food and Drug Admin istra tion. Not Available [facility] ([facility]) [address] [facility], [place], [address], 02/11/2024 18:36:36 02/06/20 24 02/07/2024 VITAM IN D, 25-HY DROXY vitamin D, 25-hydroxy 18.7 NG/mL 30.0-1 00.0 below low normal Vitam in D defic iency has been defin ed by the Insti tute of Medic ine and an Endoc rine Socie ty pract ice guide line as a level of serum 25-OH vitam in D less than 20 ng/mL (1,2) . The Endoc rine Socie ty went on to furth er defin e vitam in D insuf ficie ncy as a level betwe en 21 and 29 ng/mL (2). 1. IOM (Inst itute of Medic ine). 2010. Dieta ry refer ence intak es for calci um and D. Rebecca chavez DC: [facility] Press . 2. Katja slater MF, Alejandro bright NC, Saúl off-F errar i FINK, et al. Evalu ation , treat ment, and preve ntion of vitam in D defic iency : an Endoc rine Socie ty clini sb pract ice guide line. JCEM. 2010; 96(7) :1911 -30. Not Available [facility] ([facility]) [address] [facility], [place], [address], 02/11/2024 18:36:37 02/06/20 24 02/09/2024 VITAM IN B1 (THIA MINE) , BLOOD vit. B1, whole blood 132.5 nmol/ L 66.5-2 00.0 Not Available [facility] ([facility]) [address] [place], [address], 02/11/2024 18:36:38 02/06/20 24 02/11/2024 METHY LMALO HUAN ACID, SERUM methylmaloni c acid, serum 75 nmol/ L 0-378 Not Available [facility] ([facility]) [address] [place], [address], 02/11/2024 18:36:39 02/06/20 24 02/08/2024 COPPE R, SERUM OR PLASM A copper, serum or plasma 120 ug/dL 80-158 Detec tion Limit = 5 Not Available [facility] ([facility]) [address] [facility], [place], [address], 02/11/2024 18:36:40 02/06/20 24 02/08/2024 ZINC, PLASM A OR SERUM zinc, plasma or serum 85 ug/dL 44-115 normal Detec tion Limit = 5 Not Available [facility] ([facility]) [address] [facility], [place], [address], 02/11/2024 18:36:41 02/06/20 24 02/07/2024 PREAL BUMIN prealbumin 18 mg/dL 14-35 Not Available [facility] ([facility]) [address] [facility], [place], [address], 02/11/2024 18:36:42 02/06/20 24 02/07/2024 SELEN IUM, BLOOD selenium, blood 185 ug/L 100-34 0 Detec tion Limit = 10 Not Available [facility] ([facility]) [address] [facility], [place], [address], 02/11/2024 18:36:43 10/04/19 24 elect rocar diogr am, routi ne ECG, 12 leads min No observ ation record ed. [email or web address] Not Available 2023 09:30:59 10/05/19 24 10/05/2023 XR, chest , 2 view [facility] [address] [place] [address] Phone: Fax: Name: DORIE VELÁSQUEZ Exam Date: 10/05/19 24 : 000 Age 23 years Gender : F Access ion: [id number] Physic meseret: SILVANO KERR ty: [facility] Facili ty HSV: Outpat ient Exam: CHEST 2 VIEWS CHEST, 2 VIEWS HISTOR Y: Preope rative exam for pulmon kiran cleara nce. COMPAR GWEN: None FINDIN GS: The heart and medias tinum are unrema rkable . The lungs are clear withou t eviden ce of acute infilt rate or effusi on. The bony struct ures are intact . IMPRES JEFF: No acute proces s. Films review ed , interp reted and dictat ed by Dr.Pop jarrett Transc ribed by Junaid Rolon PA-C. Dictat ed By: DORA SEE Transc ribed By: Dora See Transc ribed On: 10/05/19 4:21 PM Electr onical ly signed by: DORA SEE 10/05/19 Thank you for referr DORIE Dubois to [facility]. Legall y authen ticate d by POPE DORA Martinez 10-04 16:21: 51 CC'ed Logic: Orderi ng Provid er: PILE HEATHE R Attend ing Provid er: PILE HEATHE R Admitt ing Provid er: PILE HEATHE R esizemore3 [facility] [address] [place] [address], [address], 11/01/2023 08:28:58 Result Notes Documentation Provider Name and Address Organization Details Recorded Time Xr, Chest, 2 View : [place] [address] Name: NIDIACOMFORTDORIE Exam Date: 10/05/2023 : 2000 Age 23 years Gender: F Physician: RONAN KERR Facility: [facility] Facility HSV: Outpatient Exam: CHEST 2 VIEWS CHEST, 2 VIEWS HISTORY: Preoperative exam for pulmonary clearance. COMPARISON: None FINDINGS: The heart and mediastinum are unremarkable. The lungs are clear without evidence of acute infiltrate or effusion. The bony structures are intact. IMPRESSION: No acute process. Films reviewed , interpreted and dictated by Transcribed by Junaid Rolon PA-C. Dictated By: DORA SEE Transcribed By: Dora See Transcribed On: 10/05/2023 4:21 PM Electronically signed by: DORA SEE 10/05/2023 Thank you for referring DORIE JACOB to [facility]. Legally authenticated by POPE DORA Martinez 2023-10-05 16:21:51 CC'ed Logic: Ordering Provider: USHA FERRARO Attending Provider: USHA FERRARO Admitting Provider: USHA Correa DNP, DISH CLOTH INSPECTOR, PHYSICAL SECURITY SPECIALIST-C [address] , [place], [address], [place] - [facility] - [place] & [place] 11/01/2023 08:28:58 Problems Name Problem SNOMED Code Status Onset Date Resolution Date Notes Provider Name and Address Organization Details Recorded Time Pre-surgery evaluation Active 2022 Raza Correa DNP, MARY ALICE, PHYSICAL SECURITY SPECIALIST-C [address] , [place], [address] , [place] - [facility] - [place] & [place] 3 13:53:36 Disorder of function of stomach 710762795 Active 2022 Raza Correa DNP, DISH CLOTH INSPECTOR, PHYSICAL SECURITY SPECIALIST-C [address] , [place], [address] , [place] - [facility] - [place] & [place] 3 13:53:43 Type 2 diabetes mellitus without complication 905665245 Active 2023 HERMINIA Mehta [address], [place], [address] , [place] - [place] - [place] & [place] 4 13:08:52 Essential hypertension 52326628 Active 2023 HERMINIA Mehta [address], [place], [address] , [place] - [facility] - [place] & [place] 4 13:08:54 Hyperlipidemi a 72452286 Active 2023 HERMINIA Mehta [address], [facility] [address] , [place] - [facility] & [place] 4 13:08:54 Hypothyroidis m 31642031 Active 2023 HERMINIA Mehta [address] , [place], [address] , [facility] - [facility] & [place] 4 13:08:55 Postoperative pain 658426575 Active 2023 HERMINIA Mehta [address], [place], [address] , [facility] - [facility] & [place] 4 09:58:55 Morbid obesity 663020834 Active 2023 HERMINIA Mehta [address], [place], [address] , [facility] - [facility] & [place] 4 09:58:55 Intentional weight loss 956974275 Active 2023 Raza Correa DNP, DISH CLOTH INSPECTOR, PHYSICAL SECURITY SPECIALIST-C [address] , [place], [address] , [facility] - [facility] & [place] 4 09:35:56 Heartburn 70273969 Active 2023 Raza Correa DNP, DISH CLOTH INSPECTOR, PHYSICAL SECURITY SPECIALIST-C [address] , [place], [place], [address] [place] [address] , [place] - [facility] [facility] & [place] 4 10:15:01 Problem Notes None recorded. Procedures Surgical History Date Name Laterality Status Provider Name and Address Organization Details Recorded Time procedure on duodenum completed Any Lomeli [place] - [facility] & [place] 11/01/2023 08:21:31 Imaging Results None recorded. Procedure Notes None recorded. Medical Equipment None Reported. Allergies No known drug allergies Medications Name Sig Start Date Stop Date Status Note LastModified by Organization Details LastModified Time methocarbam ol 500 mg tablet TAKE 1 TABLET BY MOUTH THREE TIMES DAILY NEEDED FOR MUSCLE SPASM 08/12 completed Not Available Not Available Not Available metformin 850 mg tablet Take 1 tablet every day by oral route. active Not Available Not Available No t Available valsartan 80 mg tablet TAKE 1 TABLET BY MOUTH ONCE DAILY 02/05 completed Not Available Not Available Not Available sulfamethox azole 800 mg-trimetho prim 160 mg tablet TAKE 1 TABLET BY MOUTH TWICE DAILY FOR 10 DAYS 06/24 completed Not Available Not Available Not Available amoxicillin 875 mg tablet TAKE 1 TABLET BY MOUTH TWICE DAILY FOR 10 DAYS 08/12 completed Not Available Not Available Not Available famotidine 20 mg tablet Take 1 tablet every day by oral route at bedtime. 2023 active Not Available Not Available Not Avai lable benzonatate 100 mg capsule TAKE 1 CAPSULE BY MOUTH TWICE DAILY NEEDED FOR COUGH 08/12 completed Not Available Not Available Not Available levothyroxi ne 50 mcg tablet TAKE 1 TABLET BY MOUTH ONCE DAILY 2 HOURS PRIOR TO OTHER MEDS/FOOD 06/24 completed Not Available Not Available Not Available cephalexin 500 mg capsule TAKE 1 CAPSULE BY MOUTH 4 TIMES DAILY FOR 10 DAYS 06/24 completed Not Available Not Available Not Available gabapentin 300 mg capsule TAKE 1 CAPSULE BY MOUTH THREE TIMES DAILY FOR 7 DAYS 10/31 completed Not Available Not Available Not Available omeprazole 20 mg capsule,del ayed release TAKE 1 CAPSULE BY MOUTH ONCE DAILY active Not Available Not Available No t Available ergocalcife rol (vitamin D2) 1,250 mcg (50,000 unit) capsule TAKE 1 CAPSULE BY MOUTH ONCE A WEEK 06/24 completed Not Available Not Available Not Available ibuprofen 600 mg tablet TAKE 1 TABLET BY MOUTH EVERY 6 HOURS NEEDED FOR MODERATE PAIN 06/24 completed Not Available Not Available Not Available celecoxib 100 mg capsule TAKE 1 CAPSULE BY MOUTH TWICE DAILY FOR 7 DAYS 10/31 completed Not Available Not Available Not Available bromphenira mine-pseudo ephedrine-D M 2 mg-30 mg-10 mg/5 mL oral syrup TAKE 5 ML BY MOUTH EVERY 4 TO 6 HOURS NEEDED FOR COLD SYMPTOMS 06/24 completed Not Available Not Available Not Available enoxaparin 60 mg/0.6 mL subcutaneou s syringe INJECT 1 SYRINGE SUBCUTANE OUSLY EVERY 12 HOURS FOR 14 DAYS 11/27 completed Not Available Not Available Not Available cholecalcif tricia (vitamin D3) 1,250 mcg (50,000 unit) capsule Take 1 capsule every week by oral route. 2023 active Not Available Not Available Not Avai lable omeprazole 20 mg tablet,lizzie yed release Take 1 tablet every day by oral route for 30 days. 10/31 completed Not Available Not Available Not Available desvenlafax ine succinate ER 50 mg tablet,exte nded release 24 hr TAKE 1 TABLET BY MOUTH ONCE DAILY 10/04 completed Not Available Not Available Not Available Multi Vitamin active Not Available Not Available Not Available desvenlafax ine succinate ER 25 mg tablet,exte nded release 24 hr TAKE 2 TABLETS BY MOUTH ONCE DAILY AT [facility] THE SAME TIME EACH DAY 08/12 completed Not Available Not Available Not Available Mounjaro 2.5 mg/0.5 mL subcutaneou s pen injector inject 0.5 ml subcutane ous once weekly 06/24 completed Not Available Not Available Not Available Vitals Date Recorded Body height Body temperature Heart rate Body mass index (BMI) Body weight Systolic And Diastolic Provider Name and Address Organization Details Last Updated DateTime 4 167.64 cm 98.1 [degF] 71 /min 54.3 kg/m2 038783. 47 g 144/96 mm[Hg] Shakira Craig [facility] & [place] 4 13:11:50 Date Recorded Body height Body mass index (BMI) Body weight Body temperature Heart rate Systolic And Diastolic Provider Name and Address Organization Details Last Updated DateTime 4 167.64 cm 50.8 kg/m2 227942. 16 g 97.4 [degF] 79 /min 133/86 mm[Hg] Any Lomeli [facility] & [place] 4 08:19:54 Date Recorded Body height Body mass index (BMI) Body weight Body temperature Heart rate Systolic And Diastolic Provider Name and Address Organization Details Last Updated DateTime 4 167.64 cm 49.1 kg/m2 613513. 52 g 97.5 [degF] 63 /min 139/78 mm[Hg] Any Lomeli [facility] & [place] 4 10:10:05 Date Recorded Body height Body temperature Heart rate Body mass index (BMI) Body weight Systolic And Diastolic Provider Name and Address Organization Details Last Updated DateTime 167.64 cm 97.7 [degF] 59 /min 44 kg/m2 894736 g 142/88 mm[Hg] Shakira Craig [facility] & [place] 09:42:15 Social History Question Answer Notes LastModified by [employer] Details LastModified Time Tobacco Smoking Status Never Smoker Sera [facility], [facility] & [place] 08/10/2022 08:21:12 What Is Your Level Of Caffeine Consumption? Occasional [email or web address] Information not available 02/06/2024 Sex: Unknown Functional Status Question Answer Note LastModified by [employer] Details LastModified Time Do you use any illicit or recreational drugs? No [email or web address] Information not available 08/10/2022 What is your level of alcohol consumption? Occasional [email or web address] Information not available 08/10/2022 Mental Status None recorded. Family History Relationship Description Onset Age of this Age Resolved Age Notes LastModified by Organization Details LastModified Time Mother Obesity [email or web address] Not availa ble 08/10/2022 08:20:13 Mother Diabetes mellitus [email or web address] Not available 08/2023 08:00:20 Mother Hypertensive disorder [email or web address] Not available 03/2023 08:20:49 Mother Cerebrovascu lar accident [email or web address] Not available 08/10/2022 08:20:56 Brother Obesity [email or web address] Not avail able 08/10/2022 08:20:13 Brother Diabetes mellitus [email or web address] Not available 08/2023 08:00:20 Brother Hypertensive disorder [email or web address] Not available 03/2023 08:20:49 Sister Obesity Not availa ble 08/10/2022 08:20:13 Sister Hypertensive disorder [email or web address] Not available 03/2023 08:20:49 Maternal Grandmother Obesity [email or web address] Not available 0 08/10/2022 08:20:13 Maternal Grandmother Diabetes mellitus [email or web address] Not available 08/2023 08:00:20 Paternal Grandmother Obesity [email or web address] Not available 0 08/10/2022 08:20:13 Paternal Grandmother Hypertensive disorder [email or web address] Not available 03/2023 08:20:49 Medical History Condition Response Other Y Hyperthyroidism Y Depression Y Headaches Y Kidney Disease N Bleeding Disorder N Pulmonary Embolism N Deep Vein Thrombosis N High Cholesterol Y Liver Disease N Diabetes Y Heart Disease N Hypertension Y Gynecological HistoryNo gynecological history recorded. Obstetrics History GPAL:G 0 P 0 0 0 0 Immunizations Vaccine Type Date Status Note Provider Nam e and Address Organization Details Recorded Time influenza, unspecified formulation 02/17/2023 completed Any herbert, [place] - [facility] - [place] & [place] 06/24/2023 13:27:48 Past Encounters Encounter ID Performer Location Encounter Start Date Encounter Closed Date Diagnosis/Indication Diagnosis SNOMED-CT Code Diagnosis ICD10 Code Diagnosis Note [id number] HERMINIA Mehta [facility] [address] [place] [address] 08/12/2022 08:27:00 08/12/2022 12:09:35 Obesity 175050304 E66.9 The patient will be scheduled for the following. Initial intake lab work, cardiac clearance, and EGD. All risks complicati ons and alternativ es of the upper endoscopy were discussed with the patient and agreed upon. These include but are not limited to, over sedation, bleeding, perforatio n. Patient will be educated by the surgical weight loss team regarding if any medical managed weight loss will be required and they will follow this according to their recommenda tions. patient will follow-up in office after all testing has been completed Type 2 dean betes mellitus 60155080 E11.9 Checking A1c. Patient is to continue metformin. Discussed starting Mounjaro and ramping schedule. Advised patient to look for decreased hunger and increased satiety. She is to decrease daily calories in order to see weight loss. Patient is to call in 4 weeks for ramping /continuat ion. Essential hypertension 49427523 I10 Nonulcer dyspepsia 84266 07 K30 [id number] LUISA MICHEL BS, RDN, LD [facility] [address] [place] [address] 11/22/2022 09:10:49 11/22/2022 12:16:18 Obesity 045718550 E66.9 Prescribin g supervised diet to monitor patient compliance with diet and exercise, intentions of WLS in the future [id number] LUISA MICHEL BS, RDN, LD [facility] [address] [facility] [address] [facility] [place] [address] 01/24/2023 11:16:08 01/24/2023 11:32:01 Obesity 553603239 E66.9 Prescribin g supervised diet to monitor patient compliance with diet and exercise, intentions of WLS in the future [id number] [facility] [address] [facility] [address] [place] [address] 06/24/2023 13:23:49 06/24/2023 14:29:22 Type 2 diabetes mellitus without complication 116767994 E11.9 Weight loss surgery options discussed at length with patient today. We discussed sleeve versus BPD/duoden al switch/ THOMAS-S. I feel like the best surgery option for this patient is BPD/ duodenal switch/ THOMAS-S given current BMI and comorbidit ies Essential hypertension 69381919 I10 Hyperlipidemia 37219479 E78.5 Hypothyroidism 32509240 E03.9 Obesity 575702948 E66.9 The patient will be scheduled for the following. Initial intake lab work, cardiac clearance, patient has had upper GI 05/17/2023 which is essentiall y normalPati ent will be educated by the surgical weight loss team regarding if any medical managed weight loss will be required and they will follow this according to their recommenda tions.armando ent will follow-up in office after all testing has been completed Pre-surger y evaluation 785463683 Z01.818 EGD 08/27/2022 patient has had upper GI 05/17/2023 which is essentiall y normal [id number] Oscar Nash DO [facility] [address] [facility] [address] [place] [address] 10/05/2023 08:00:15 10/05/2023 15:49:53 Essential hypertension 75876734 I10 Hyperlipidemia 36118847 E78.5 Morbid obesity 275261053 E66.01 Pre-surger y evaluation 978758607 Z01.818 Postoperative pain 23771 9007 G89.18 Prophylact ic anticoagulation given 5070118159 13565 Z76.89 The patient will be placed on 14 days of Lovenox SQ post operativel y to further help prevent DVT due to BMI being greater than 50. They understand the risk of bleeding and will be educated on how to administer this during their hospital stay. They are instructed this is to start once they are discharged from the hospital. [id number] Raza Correa, DNP, DISH CLOTH INSPECTOR, PHYSICAL SECURITY SPECIALIST-C [facility] [address] [facility] [place] [address] 11/01/2023 08:13:29 11/01/2023 11:55:27 History of bariatric surgical procedure 691870864 Z98.84 The patient is doing well. The patient is instructed to continue their vitamins as directed. They are to continue advancing their diet as directed. They may start exercising but keep lifting less than 25 pounds for 2 more weeks. I will see them back in 3 weeks or one month from surgery. We will order their first set of labs at that time. I summarized the expectatio ns for the upcoming year. We will check labs at their one month visit from surgery, 3 months from surgery as well as at 6, 9, and 12 months from surgery. These labs will be ordered on the day of their appointmen t. They have the option to come to the appointmen t fasting and labs can be drawn that day at the hospital. If not, I expect these labs to be drawn within the week of ordering them. If they choose to have them drawn at another [facility] they are to make sure that the labs are sent to my office. These labs will be reviewed once received and the patient will be called with any significan t abnormalit ies and how they should be addressed. If they would like a copy of their labs they are welcome to request these and we will send a copy to them. If their labs and vitamin levels are adequate at 12 months then they will need lab checks every 6mth-12mth . They consent to understand this plan and agree to comply. Essential hypertension 16614084 I10 Hypothyroidism 95954949 E03.9 Morbid obesity 590688111 E66.01 Hyperlipidemia 86734893 E78.5 Type 2 dean betes mellitus without complication 243823422 E11.9 Intentiona l weight loss 337181299 R63.8 [id number] Raza Correa, DNP, DISH CLOTH INSPECTOR, PHYSICAL SECURITY SPECIALIST-C [facility] [address] [facility] [address] [facility] [place] [address] 11/28/2023 10:00:01 11/28/2023 11:09:49 History of bariatric surgical procedure 636856258 Z98.84 The patient is doing well. The patient is instructed to continue their vitamins as directed. They are to continue advancing their diet as directed. They may start exercising but keep lifting less than 25 pounds for 2 more weeks. I will see them back in 3 weeks or one month from surgery. We will order their first set of labs at that time. I summarized the expectatio ns for the upcoming year. We will check labs at their one month visit from surgery, 3 months from surgery as well as at 6, 9, and 12 months from surgery. These labs will be ordered on the day of their appointmen t. They have the option to come to the appointmen t fasting and labs can be drawn that day at the hospital. If not, I expect these labs to be drawn within the week of ordering them. If they choose to have them drawn at another [facility] they are to make sure that the labs are sent to my office. These labs will be reviewed once received and the patient will be called with any significan t abnormalit ies and how they should be addressed. If they would like a copy of their labs they are welcome to request these and we will send a copy to them. If their labs and vitamin levels are adequate at 12 months then they will need lab checks every 6mth-12mth . They consent to understand this plan and agree to comply. Intentiona l weight loss 689420321 R63.8 History of gastrectomy 050224349 Z90.3 Advised qid intake 50% protein 3718-8926 calories/d y less than 100 carbs/dy Long discussion today of [employer] results including PBF(percen t body fat) SMM (skeletal muscle mass) Visceral fat level level BMR Segmental Fat Analysis and Segmental Lean Analysis. Encouraged pt to take minimal calories as per BMR and to anticipate changes in SMM and PBF values not just total weight. Follow-up with Repeat MARY JO in 3mth suggested Patient is status post bariatric surgery and at increased risk for vitamin deficienci es and malnutriti on. Bariatric vitamin panel ordered today. Patient will be contacted to correct any vitamin deficienci es. Essential hypertension 50769808 I10 Hyperlipidemia 94847160 E78.5 Hypothyroidism 93380644 E03.9 Type 2 dean betes mellitus without complication 589543877 E11.9 Morbid obesity 910470503 E66.01 Heartburn 68011894 R12 [id number] CHAD ROTH RDN, LD [facility] [address] [facility] [address] [facility] [place] [address] 11/28/2023 10:53:31 11/30/2023 03:56:28 Obesity 043286959 E66.9 Inadequate intake of energy 568999146 E46 Deficient knowledge of dietary regime 277320080 Z76.89 Diet education 93453592 Z71.3 [id number] Raza Correa, DNP, DISH CLOTH INSPECTOR, PHYSICAL SECURITY SPECIALIST-C [facility] [address] [facility] [address] [facility] [place] [address] 02/06/2024 09:33:43 02/06/2024 12:16:36 History of bariatric surgical procedure 158423580 Z98.84 The patient is doing well. The patient is instructed to continue their vitamins as directed. They are to continue advancing their diet as directed. They may start exercising but keep lifting less than 25 pounds for 2 more weeks. I will see them back in 3 weeks or one month from surgery. We will order their first set of labs at that time. I summarized the expectatio ns for the upcoming year. We will check labs at their one month visit from surgery, 3 months from surgery as well as at 6, 9, and 12 months from surgery. These labs will be ordered on the day of their appointmen t. They have the option to come to the appointmen t fasting and labs can be drawn that day at the hospital. If not, I expect these labs to be drawn within the week of ordering them. If they choose to have them drawn at another [facility] they are to make sure that the labs are sent to my office. These labs will be reviewed once received and the patient will be called with any significan t abnormalit ies and how they should be addressed. If they would like a copy of their labs they are welcome to request these and we will send a copy to them. If their labs and vitamin levels are adequate at 12 months then they will need lab checks every 6mth-12mth . They consent to understand this plan and agree to comply. Intentiona l weight loss [id number] R63.8 History of gastrectomy [id number] Z90.3 Advised qid intake 50% protein [id number] calories/d y less than 100 carbs/dy Long discussion today of InBody results including PBF(percen t body fat) SMM (skeletal muscle mass) Visceral fat level level BMR Segmental Fat Analysis and Segmental Lean Analysis. Encouraged pt to take minimal calories as per BMR and to anticipate changes in SMM and PBF values not just total weight. Follow-up with Repeat MARY JO in 3mth suggested Patient is status post bariatric surgery and at increased risk for vitamin deficienci es and malnutriti on. Bariatric vitamin panel ordered today. Patient will be contacted to correct any vitamin deficienci es. At [facility] risk of nutritional deficit [id number] Z91.89 Essential hypertension [id number] I10 Type 2 dean betes mellitus without complication [id number] E11.9 Health Concerns Section Related Observation LastModified by Organization Detai ls LastModified Time None Recorded Concern Status LastModified by Organization Details LastModified Time None Recorded Advance Directives Directive None Recorded Payers Insurance Date Sequence Insurance Name Policy Number Policy Lopez Covered Member ID Lopez Member ID Guarantor Name 02/08/2024 1 [employer] [facility] (MEDICAID HMO) Dorie Deal [id number] Dorie Deal 08/17/2022 1 [employer] Dorie Kim [id number] Dorie Weinerez 08/17/2022 1 [facility] (POS II) Dorie Kim [id number] Dorie Deal 06/25/2023 2 [employer] [facility] (MEDICAID HMO) Dorie Kim [id number] Dorie Deal 08/13/2022 2 [employer] [facility] (MEDICAID HMO) Dorie Kim [id number] Dorie Deal Notes Date Note Type Note Provider Name and Address Organization Details Recorded Time 10/05/2023 text/html The patient is h ere today to schedule bariatric surgery which is Robotic duodenal switch _. They have undergone all required pre-operative work up and screening and have been approved to proceed with surgery. They deny any recent changes in their medical history since originally seen for their intake history and physical exam. They have undergone a 1 hour education class by myself reviewing the entire surgical process what to expect pre-operatively, during their hospital stay and when they are discharged home. They have had the opportunity to ask questions and all questions have been addressed. They have also undergone a class with the wireless communications engineer and have received clear instructions on what is required regarding fluid intake, protein intake and vitamin consumption postoperatively. The patient is being managed by their PCP for hypertension hyperlipidemia and is currently stable. Oscar Nash DO [address], [place], [address], [facility] & [place] 10/05/2023 14:51:21 11/01/2023 text/html Patient presents for 1wk Post-Op Check s/p Bariatric surgery. Patient had a gastricSleeve gastrectomy with duodenal switchRobotic assisted surgery performed on 2023 . Today patient is on post-operative day # 8. Patient is doing well. Tolerating PO intake w/out issue. Getting 60g/day protein. Pt reports good hydration. Is consuming 16 oz of water a day.Taking recommended vitamins and PPI. Is taking Lovenox twice a day.Pt Denies : abdominal pain, prandial issues Nausea, Vomiting, bowel or bladder issuesTotal Weight loss 21.7 pounds.Patient has not seen PCP since surgery.Path benignPatient is happy with their quality of life after Weight loss Surgery. Raza Correa, FROILAN, DISH CLOTH INSPECTOR, PHYSICAL SECURITY SPECIALIST-C [address], [place], [address], [facility] & [place] 11/01/2023 09:38:20 11/28/2023 text/html Patient presents the office today for routine 1 month follow-up status post bariatric gastric Sleeve gastrectomy with duodenal switchRobotic assisted surgery performed on 2023. Patient doing well. Reports q.i.d. small meal intake. Reports 70g/dy protein intake and good hydration.Patient is drinking 800 ounces of water a day.Daily Calories 900Taking routine vitamins as advised.Heartburn/ga stroesophageal reflux: when after eating, but not every day or at every meal.Pt Denies : abdominal pain, prandial issues Nausea, Vomiting, bowel or bladder issuesTotal Weight loss Since last office visit has been 10.3 lbsPt is happy with their quality of life after Weight loss Surgery. Raza Correa, DNP, DISH CLOTH INSPECTOR, PHYSICAL SECURITY SPECIALIST-C [address] , [place], [address], [facility] & [place] 11/28/2023 10:47:42 11/28/2023 text/html A: RENETTAN met w/ pt for f/up s/p Sleeve gastrectomy with duodenal switch surgery performed on 2023. 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 daily kcal intake: 900 Est. daily protein intake: 70 g Est. daily fluid intake: 80 oz Meal Frequency/Pattern:Pt reports eating: B, S, L, D Foods frequently consumed: yogurt - 15 g protein in the AMs, grilled tilapia Foods occasionally consumed: chicken, fruit at work, soups (potato, broccoli, etc.), cheese, sour cream Drinks: protein shakes - 30 g each, water Foods Not Tolerated: cake Additional notes/concerns: has returned to work this week; asking if she can restart coffee CHAD ROTH RDN, LD [address] [facility], [place], [address], [facility] & [place] 11/28/2023 11:09:08 02/06/2024 text/html Patient presents the office today for routine 3 month follow-up status post bariatric gastric Sleeve gastrectomy with duodenal switchRobotic assisted surgery performed on 2023. Patient doing well. Reports q.i.d. small meal intake. Reports 80g/dy protein intake and good hydration.Patient is drinking 64 ounces of water a day.Daily Calories 900-1000Taking routine vitamins as advised.Heartburn/ga stroesophageal reflux: deniesPt Denies : abdominal pain, prandial issues Nausea, Vomiting, bowel or bladder issuesTotal Weight loss Since last office visit has been 63.6 lbsPt is happy with their quality of life after Weight loss Surgery. Today's InBody reveals a skeletal muscle mass = 71.2 lb,body fat mass = 144.5 lb,BMI = 44.1Percent body fat = 53.0Basal Metabolic Rate = 1627 kilo calories Raza Correa, FROILAN, DISH CLOTH INSPECTOR, PHYSICAL SECURITY SPECIALIST-C [address] [facility], [place], [address], [facility] [place] & [place] 02/06/2024 10:52:48 OBGyn Episode No OBEpisode recorded.
[2024-11-19 15:04] LABS: Bilirubin,Urine Negative (Negative); Color,Urine YELLOW (Yellow); Glucose,Urine (UA) Negative (Negative); Ketones,Urine Negative (Negative); Leukocyte Esterase,Urine TRACE (Negative); PH,Urine 5.5 (5.0-8.5); Protein,Urine TRACE (Negative); Specific Gravity, Urine 1.025 (1.005-1.030); Urobilinogen,Urine 1.0 EU/dl (0.2)
[2024-11-19 15:19] LABS: Bacteria,Urine 1+ /lpf; RBC,Urine TNTC #/hpf (0-3); WBC,Urine Occasional #/hpf (0-3)
[2024-11-19 15:24] LABS: Immature Granulocytes % 0.5 %; Mean Corpuscular HGB Conc 33.0 g/dL (31.8-35.4); Mean Corpuscular Hemoglobin 29.6 pg (27.0-31.2); Mean Corpuscular Volume 89.7 fl (81-99); Nucleated Red Blood Cells % 0 %; Platelet Count 220 K/mm3 (142-424); Red Blood Count 2.23 M/mm3 (4.20-5.40); Red Cell Distribution Width-SD 44.8 fL; White Blood Count 6.4 K/mm3 (4.8-10.8)
[2024-11-19] MEDS: ACETAMINOPHEN 500MG TAB 1000 MG PO ×2 (15:26→21:58)
--- NOTE | 2024-11-19 15:27 | US_ITS ---
PROCEDURE INFORMATION: Exam: US Pelvis, Transvaginal, Non-Obstetric Exam date and time: 11/19/2024 3:46 PM Age: 24 years old Clinical indication: Other: Bleeding x 3 wks; Additional info: 3wks heavy vaginal bleeding TECHNIQUE: Imaging protocol: Real-time transvaginal pelvic (non-obstetric) ultrasound with image documentation. Transvaginal imaging was used for better evaluation of the endometrium, adnexa, and/or cervix. COMPARISON: US TRANSVAGINAL 11/19/2024 3:46 PM FINDINGS: Uterus: DEXA ET okay the uterus measures 6.3 x 3.4 x 4.3 cm. The endometrium measures 6 mm. Right ovary/adnexa: The right ovary measures 2.9 x 2.5 x 2.4 cm. Left ovary/adnexa: Left ovary measures 3.2 x 1.6 x 1.7 cm. Urinary bladder: Urinary bladder is limited. Intraperitoneal space: No free fluid. Other findings: Arterial and venous flow is seen in the adnexa bilaterally. Multiple follicles are present bilaterally. IMPRESSION: Unremarkable exam.
[2024-11-19 15:30] LABS: Hematocrit 20.0 % (37.0-47.0); Hemoglobin 6.6 g/dL (12.2-16.2)
--- NOTE | 2024-11-19 15:31 | PC.NURSE ---
criticals called from MD Cyrus notified
[2024-11-19 15:32] LABS: Alanine Aminotransferase 16 U/L (12-78); Albumin Level 3.9 g/dl (3.5-5.0); Albumin/Globulin Ratio 1.4 (1.1-1.8); Alkaline Phosphatase 68 U/L (38-126); Anion Gap 9.0 mEq/L (5-15); Aspartate Amino Transferase 28 U/L (14-36); Bilirubin,Total 0.4 mg/dl (0.2-1.3); Blood Urea Nitrogen 11 mg/dl (7-17); Calcium 9.1 mg/dl (8.4-10.2); Carbon Dioxide 24 mmol/L (22.0-30.0); Chloride 109 mmol/L (98-107); Creatinine Clearance Estimated 296 mL/min (50-200); Creatinine,Serum 0.50 mg/dl (0.52-1.04); Estimated Glomerular Filt Rate 150 ml/min (>60); GFR (African American) 182 ML/MIN (>60); Globulin 2.7 g/dL (1.3-3.2); Glucose 96 mg/dl (74-100); Lipase 99 U/L (23-300); Magnesium 2.0 mg/dl (1.6-2.3); Potassium 4.0 mmoL/L (3.5-5.1); Sodium 138 mmol/L (136-145); Total Protein,Serum 6.6 g/dl (6.3-8.2)
[2024-11-19 15:34] LABS: HCG Qualitative, Serum Negative (Negative)
--- NOTE | 2024-11-19 15:36 | ECG_ITS ---
APPROVED REPORT Exam: Resting ECG HR:87 bpm ECG Measurements Heart Rate 87 AXES NV 146 P 52 QRSd 97 QRS 59 QT 344 T 41 QTc 388 Conclusion SINUS RHYTHM NORMAL ECG UNCONFIRMED REPORT Electronically signed by : ANTHONY HINDS, 11/21/2024 01:23:11
[2024-11-19 15:44] LABS: NT Pro Brain Natriuretic Pep. 176 pg/mL (0-125)
[2024-11-19 16:03] LABS: Troponin I < 0.01 ng/ml (0.00-0.034)
[2024-11-19 16:05] LABS: Activated Partial Thrombo Time 22.1 seconds (22.8-30.6); INR 0.93 (0.9-1.1); Prothrombin Time 10.4 seconds (10.1-12.5)
--- NOTE | 2024-11-19 16:18 | PC.NURSE ---
pt returned from ultrasound
--- NOTE | 2024-11-19 16:39 | PC.NURSE ---
Paged DR ABEBE
[2024-11-19 16:42] LABS: Hepatitis C Ab Qual. W/ RFX NEGATIVE (Negative)
--- NOTE | 2024-11-19 17:04 | P.HP_ITS ---
History of Present Illness *Admission Date: 11/19/24 *Reason for visit:: Heavy vaginal bleeding, anemia *History of present illness: Dorie Kim is a 24-year-old female with past medical history of previous miscarriage, hypertension, diabetes mellitus, gastric sleeve surgery who presents to the emergency department for complaints of vaginal bleeding and lower abdominal cramping. Patient states that she was recently in [place] and has had 3 weeks of heavy vaginal bleeding. She states that initially, she had a large clot from her vagina and the size of her hand and that she is continuing to have smaller blood clots from her vagina. She is not sure if she is having blood in her urine but does have blood in the toilet bowl when she pees. She reports cramping abdominal pain in the lower abdomen. She denies any possibility of being , although she states that this feels similar to when she had miscarriages in the past. She states that while she was in [place], she was told that she was anemic with a . blood count of 7.5 She was put on ibuprofen and another medication with minimal relief of her symptoms. 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 She states that her periods prior to this were not heavy but lasted 2 weeks and occurred every month, however she did not have a period last month [facility] Disclaimer: The information contained in this section may have been updated after the patient was seen, as this information can be updated by other users. Medical History Encounter for pre-operative respiratory clearance No significant past medical history No significant past medical history Hypertension Diabetes mellitus, type 2 Surgical History No history of previous surgery Family History Family history of hypertension Family history of diabetes mellitus type II Social History Smoking Status: Never smoker alcohol intake: current alcohol intake frequency: holidays/special occasions only current occupational status: employed Travel in the last 8 weeks?: None Have you lived/traveled outside US in past 30 days?: No Contact w/someone who lives/traveled outside US past 30 days?: No Exposure to someone with infectious disease in past 14 days?: No Do you have a fever (greater than 100.4 F or 38 C)?: No Have you tested positive for COVID-19?: No Exposed to someone with COVID-19 in past 14 days?: No Do you have a sore throat?: No Do you have a cough?: No Do you have any weakness?: No Do you have any diarrhea?: No Are you experiencing any unusual bleeding?: No Do you have any muscle aches/pain?: No Do you have any abdominal pain?: No Are you experiencing loss of taste or smell?: No Other Medical History Have you received the Flu Vaccine for this season: Yes Have you received the Pneumonia Vaccine: No Review of Systems Review of Systems Review of systems:: pertinent systems reviewed and negative unless documented below Meds Home Medications and Allergies Home Medications ?Medication ?Instructions ?Recorded ?Confirmed ?Type metformin 850 mg tablet 850 mg PO DAILY Diabetes 02/1909/14/23 History valsartan 80 mg tablet 80 mg PO DAILY Hypertension 10/14/22 09/14/23 History cholecalciferol (vitamin D3) 1,250 1,250 mcg PO WEEKLY 07/13/23 09/14/23 History mcg (50,000 unit) capsule New Prescriptions to Start Prescriptions: Allergies Allergy/AdvReac Type Severity Reaction Status Date / Time No Known Allergies Allergy Verified 09/14/23 14:05 Exam Data for Last 24 hours Vital signs and Labs for Last 24 Hours: Temp Pulse Resp BP Pulse Ox O2 Del Method 98.6 F 83 18 111/58 L 100 Room Air 11/19/24 17:01 11/19/24 17:01 11/19/24 17:01 11/19/24 17:01 11/19/24 17:01 11/19/24 15:08 Laboratory Results - last 24 hr 11/19/24 14:46: Urine Color Yellow, Urine Appearance Clear, Urine pH 5.5, Ur Specific [place] 1.025, Urine Protein Trace, Urine Glucose (UA) Negative, Urine Ketones Negative, Urine Blood 3+ A, Urine Nitrate Positive A, Urine Bilirubin Negative, Urine Urobilinogen 1.0, Ur Leukocyte Esterase Trace, Urine RBC Tntc, Urine WBC Occasional, Ur Squamous Epith Cells 3-5, Urine Bacteria 1+ 11/19/24 15:05: WBC 6.4, RBC 2.23 L, Hgb 6.6 L*, Hct 20.0 L*, MCV 89.7, MCH 29.6, MCHC 33.0, RDW 13.8, Plt Count 220, MPV 11.9 H, Neut % (Auto) 60.1, Lymph % (Auto) 31.0, [place] % (Auto) 5.5, Eos % (Auto) 2.7, Baso % (Auto) 0.2, Neut # (Auto) 3.8, Lymph # (Auto) 2.0, [place] # (Auto) 0.4, Eos # (Auto) 0.2, Baso # (Auto) 0.0, PT 10.4, INR 0.93, APTT 22.1 L, Sodium 138, Potassium 4.0, Chloride 109 H, Carbon Dioxide 24, Anion Gap 9.0, BUN 11, Creatinine 0.50 L, Estimated Creat Clear 296, Estimated GFR 150, Est GFR ( Amer) 182, Glucose 96, Calcium 9.1, Magnesium 2.0, Total Bilirubin 0.4, AST 28, ALT 16, Alkaline Phosphatase 68, Troponin I < 0.01, NT-Pro-B Natriuret Pep 176 H, Total Protein 6.6, Albumin 3.9, Globulin 2.7, Albumin/Globulin Ratio 1.4, Lipase 99, Serum HCG, Qual Negative, HCV Ab YULI w/Rflx PCR Qn Negative, HIV Ag/Ab Combo Qual Negative, Blood Type A Positive, Antibody Screen Negative, Crossmatch (AHG) See Detail I & O for Last 24 hours: Intake & Output 11/17/24 11/18/24 11/19/24 11/20/24 11:59 11:59 11:59 11:59 Intake Total 0 / 0 Balance 0 / 0 Weight 240 lb Constitutional Constitutional: no acute distress and obese *Routine HEENT Exam Head: Present normocephalic Eye: Present EOMI and PERRL ENT: Present mucous membranes moist *Routine Neck Exam Neck: Present supple; Absent lymphadenopathy *Routine Respiratory Exam Respiratory: Present CTA bilaterally *Routine Cardiovascular Exam Cardiovascular: Present RRR *Routine Abdominal Exam Abdominal: Present soft and normoactive bowel sounds; Absent tenderness *Routine Rectal Exam Rectal:: deferred *Routine Genitalia Exam Genitalia:: deferred *Routine Extremities Exam Extremities: Absent cyanosis, clubbing or edema *Routine Skin Exam Skin: Present warm; Absent rash *Routine Neurological Exam Neurological: Present alert and oriented X3 Assessment and Plan *Assessment and plan (1) Anemia associated with acute blood loss: Status: Acute Category: Medical Code(s): D62 - Acute posthemorrhagic anemia (2) Vaginal bleeding: Status: Acute Category: Medical Code(s): N93.9 - Abnormal uterine and vaginal bleeding, unspecified (3) Menorrhagia: Status: Acute Qualifiers: Menorrhagia type: with irregular cycle Qualified Code(s): N92.1 - Excessive and frequent menstruation with irregular cycle Category: Medical Code(s): N92.0 - Excessive and frequent menstruation with regular cycle (4) Polycystic bilateral ovaries: Status: Acute Category: Medical Code(s): E28.2 - Polycystic ovarian syndrome Plan 1. I reviewed her ultrasound and the endometrium is really not that thick. It measures between 6 mm and 8 mm. 2. Since she has had this longstanding history of bleeding and now has heavier bleeding I believe that she would be a good candidate for IV estrogen. We will go ahead and admit her and start this overnight. She will receive 25 mg IV every 4 hours x 24 hours. She is receiving a transfusion of blood as well. 3. We will see how she does overnight. 4. Repeat H&H posttransfusion and again in the morning. 5. She would be good candidate for the control pill when she goes home.
--- NOTE | 2024-11-19 17:33 | PC.NURSE ---
went in with Dr. rBitton for vaginal exam.
[2024-11-19] MEDS: CEFTRIAXONE 1 GM 1 GM in 0.9 % SODIUM CHLORIDE 50 ML IV (17:49)
--- NOTE | 2024-11-19 17:52 | PC.NURSE ---
REPORT CALLED TO TEJA
[2024-11-19] MEDS: KETOROLAC 30MG/ML VIAL 30 MG IV (18:29)
[2024-11-19] MEDS: LACTATED RINGERS 1000ML 1,000 ML 125 ML IV (18:29)
[2024-11-19] MEDS: ESTROGENS CONJUGATED 25 MG IV (18:30)
--- NOTE | 2024-11-19 19:19 | PC.NURSE ---
Critical H&H 6.6/20.3 called from Sarkis in the lab name and verified.
[2024-11-19 19:20] LABS: Hematocrit 20.3 % (37.0-47.0); Hemoglobin 6.6 g/dL (12.2-16.2)
[2024-11-19 19:43] LABS: Troponin I < 0.01 ng/ml (0.00-0.034)
--- NOTE | 2024-11-19 20:30 | PC.NURSE ---
1 peach pad weighing 112 g = 89 mL
[2024-11-19] MEDS: 0.9 % SODIUM CHLORIDE 250 ML 25 ML IV (20:48)
--- NOTE | 2024-11-19 21:31 | PC.NURSE ---
Patient now reporting a pounding headache with pain 12/09 but states has had headache off and on for a week and this headache started prior to blood transfusion
[2024-11-19] MEDS: OXYCODONE 5MG IMMEDIATE RELEASE TABLET 5 MG PO (22:41)
--- NOTE | 2024-11-19 23:35 | PC.NURSE ---
1 chux weighing 102g = 22 mL 1 pad weighing 164 g = 141 mL Numerous small clots noted on pad. Discussed with patient if progresses to a pad satuation in an hour or less to notify RN. Patient verbalizes understanding
[2024-11-20] VITALS (42 sets, daily range): BP systolic 81–131; BP diastolic 33–79; PULSE 77–116; RESP 14–28; TEMP 36.1–37.8; O2SAT 90–100
[2024-11-20 00:19] LABS: Hematocrit 24.6 % (37.0-47.0)
[2024-11-20 00:22] LABS: Hemoglobin 8.0 g/dL (12.2-16.2)
[2024-11-20] MEDS: KETOROLAC 30MG/ML VIAL 30 MG IV ×3 (00:27→14:18)
[2024-11-20] MEDS: ESTROGENS CONJUGATED 25 MG IV ×2 (00:33→08:05)
[2024-11-20 00:50] LABS: Troponin I < 0.01 ng/ml (0.00-0.034)
--- NOTE | 2024-11-20 02:55 | PC.NURSE ---
1 pad and 1 chux saturated with blood, weighing 280 g = 177 mL. Large stringy clot noted. Patient beginning to report nausea and hot flashes as well continuing to report dizziness and ringing in her ears. Adrianna and Sidra given, patient requesting Zofran
[2024-11-20] MEDS: ONDANSETRON 4MG/2ML VIAL 4 MG IV (03:08)
--- NOTE | 2024-11-20 03:17 | PC.NURSE ---
Afterhours pharmacy phoned to discuss TXA dosing. Per pharmacy, 1000 mg IV TXA in a 250 mL normal saline bag to be infused over 20 minutes. Read back and verified
--- NOTE | 2024-11-20 04:00 | PC.NURSE ---
RN at bedside after completion of TXA to restart IV LR. Patient verbalizes feeling of apprehension, like she was going to pass out, states she is feeling much worse compared to beginning of this shift. VS obtained and assessment completed. Patient pad checked and small to moderate amount of blood noted on pad, free flow absent.
--- NOTE | 2024-11-20 04:01 | PC.NURSE ---
Lab called to patient bedside for stat CBC
--- NOTE | 2024-11-20 04:19 | PC.NURSE ---
Dr. Britton at patient bedside. MD discussing plan of care with patient, monitoring BPs at patient bedside.
[2024-11-20 04:28] LABS: Immature Granulocytes % 0.3 %; Mean Corpuscular HGB Conc 33.2 g/dL (31.8-35.4); Mean Corpuscular Hemoglobin 29.0 pg (27.0-31.2); Mean Corpuscular Volume 87.4 fl (81-99); Nucleated Red Blood Cells % 0 %; Platelet Count 176 K/mm3 (142-424); Red Blood Count 2.38 M/mm3 (4.20-5.40); Red Cell Distribution Width-SD 46.4 fL; White Blood Count 10.3 K/mm3 (4.8-10.8)
[2024-11-20 04:35] LABS: POC Glucose,Bedside 94 (70-110)
--- NOTE | 2024-11-20 04:39 | PC.NURSE ---
Critical H&H reported to RN from lab of 6.9/20.8. MD next to RN at nurses' station and reported labs. Order received to transfuse 3rd unit of PRBC now.
[2024-11-20 04:40] LABS: Hematocrit 20.8 % (37.0-47.0); Hemoglobin 6.9 g/dL (12.2-16.2)
[2024-11-20] MEDS: 0.9 % SODIUM CHLORIDE 250 ML 25 ML IV (04:46)
--- NOTE | 2024-11-20 04:48 | P.PN_ITS ---
Subjective *Date: 11/20/24 *Time: 04:48 Interval history: She continues to have bleeding and has soaked 3 pads overnight. Her total blood loss is 429 cc. She has received IV estrogen and we recently gave her tranexamic acid. After receiving this medication she did feel anxious and light headed. This is a common side effect of the medication. She also had a decrease in her blood pressure. She has received IV fluids. Her blood pressures are in the high 80s over high 40s. Stat H&H revealed her hemoglobin to be 6.9. As result of this we are going to give her another unit of blood. Medical Exam Vital signs and Labs for Last 24 Hours: Vital Signs Temp Pulse Pulse Resp BP BP Pulse Ox 11/20/24 04:33 92/47 L 11/20/24 04:28 84 85/49 L 100 11/20/24 04:23 82 81/47 L 100 11/20/24 04:15 82 91/44 L 100 11/20/24 04:10 98.3 F 84 22 94/35 L 100 11/20/24 04:05 93 H 96/36 L 100 11/20/24 04:00 89 24 104/33 L 100 11/20/24 03:38 11/20/24 02:39 11/20/24 01:37 11/20/24 00:30 98.8 F 87 16 109/56 L 98 11/20/24 00:30 11/19/24 23:42 98.2 F 89 17 111/60 99 11/19/24 23:35 11/19/24 22:42 98.1 F 79 18 106/56 L 99 11/19/24 22:28 11/19/24 22:01 98.3 F 87 16 111/57 L 100 11/19/24 21:46 97.9 F 88 17 118/62 100 11/19/24 21:31 11/19/24 21:31 97.8 F 83 18 114/49 L 100 11/19/24 21:16 98.1 F 82 16 100/51 L 99 11/19/24 21:11 98.3 F 83 16 108/52 L 99 11/19/24 21:06 98.1 F 88 17 105/54 L 100 11/19/24 21:01 98.1 F 87 16 100/50 L 99 11/19/24 20:51 98.1 F 90 16 113/44 L 99 11/19/24 20:30 11/19/24 20:25 98.0 F 82 17 107/54 L 100 11/19/24 20:25 11/19/24 19:28 11/19/24 18:57 11/19/24 18:02 97.9 F 72 18 141/78 H 11/19/24 17:46 97.9 F 81 20 141/68 H 100 11/19/24 17:31 98.2 F 72 18 142/62 H 99 11/19/24 17:16 98.4 F 99 H 20 140/68 100 11/19/24 17:06 98.1 F 77 16 114/54 L 100 11/19/24 17:01 98.6 F 83 18 111/58 L 100 11/19/24 16:56 98.4 F 76 20 122/66 100 11/19/24 16:51 98.1 F 82 16 127/68 100 11/19/24 16:44 98.7 F 87 16 125/69 99 11/19/24 15:45 91 H 123/92 H 100 11/19/24 15:30 104 H 123/92 H 100 11/19/24 15:08 99.0 F 89 20 154/96 H 98 11/19/24 15:00 87 154/96 H 100 O2 Del Method 11/20/24 04:33 11/20/24 04:28 Room Air 11/20/24 04:23 Room Air 11/20/24 04:15 Room Air 11/20/24 04:10 Room Air 11/20/24 04:05 Room Air 11/20/24 04:00 Room Air 11/20/24 03:38 Room Air 11/20/24 02:39 Room Air 11/20/24 01:37 Room Air 11/20/24 00:30 Room Air 11/20/24 00:30 Room Air 11/19/24 23:42 11/19/24 23:35 Room Air 11/19/24 22:42 11/19/24 22:28 Room Air 11/19/24 22:01 11/19/24 21:46 11/19/24 21:31 Room Air 11/19/24 21:31 11/19/24 21:16 11/19/24 21:11 11/19/24 21:06 11/19/24 21:01 11/19/24 20:51 11/19/24 20:30 Room Air 11/19/24 20:25 Room Air 11/19/24 20:25 Room Air 11/19/24 19:28 Room Air 11/19/24 18:57 Room Air 11/19/24 18:02 Room Air 11/19/24 17:46 11/19/24 17:31 11/19/24 17:16 11/19/24 17:06 11/19/24 17:01 11/19/24 16:56 11/19/24 16:51 11/19/24 16:44 11/19/24 15:45 11/19/24 15:30 11/19/24 15:08 Room Air 11/19/24 15:00 Intake and Output 11/19/24 11/20/24 11/20/24 19:59 03:59 11:59 Intake Total 0 / 250 250 / 250 Output Total 0 / 0 Balance 0 / 250 250 / 250 Intake: Intake (Blood Product) Amt 0 / 250 250 / 250 Red Blood Cells Unit 0 / 0 [id number] Red Blood Cells Unit 250 / 250 [id number] Output: Output, Urine Amount 0 / 0 Other: Number of Unmeasured Voids 1 Weight 240 lb Patient Weight 11/20/24 11:59 Weight 240 lb Laboratory Results - last 24 hr 11/19/24 14:46: Urine Color Yellow, Urine Appearance Clear, Urine pH 5.5, Ur Specific [place] 1.025, Urine Protein Trace, Urine Glucose (UA) Negative, Urine Ketones Negative, Urine Blood 3+ A, Urine Nitrate Positive A, Urine Bilirubin Negative, Urine Urobilinogen 1.0, Ur Leukocyte Esterase Trace, Urine RBC Tntc, Urine WBC Occasional, Ur Squamous Epith Cells 3-5, Urine Bacteria 1+ 11/19/24 15:05: WBC 6.4, RBC 2.23 L, Hgb 6.6 L*, Hct 20.0 L*, MCV 89.7, MCH 29.6, MCHC 33.0, RDW 13.8, Plt Count 220, MPV 11.9 H, Neut % (Auto) 60.1, Lymph % (Auto) 31.0, [place] % (Auto) 5.5, Eos % (Auto) 2.7, Baso % (Auto) 0.2, Neut # (Auto) 3.8, Lymph # (Auto) 2.0, [place] # (Auto) 0.4, Eos # (Auto) 0.2, Baso # (Auto) 0.0, PT 10.4, INR 0.93, APTT 22.1 L, Sodium 138, Potassium 4.0, Chloride 109 H, Carbon Dioxide 24, Anion Gap 9.0, BUN 11, Creatinine 0.50 L, Estimated Creat Clear 296, Estimated GFR 150, Est GFR ( Amer) 182, Glucose 96, Calcium 9.1, Magnesium 2.0, Total Bilirubin 0.4, AST 28, ALT 16, Alkaline Phosphatase 68, Troponin I < 0.01, NT-Pro-B Natriuret Pep 176 H, Total Protein 6.6, Albumin 3.9, Globulin 2.7, Albumin/Globulin Ratio 1.4, Lipase 99, Serum HCG, Qual Negative, HCV Ab YULI w/Rflx PCR Qn Negative, HIV Ag/Ab Combo Qual Negative, Blood Type A Positive, Antibody Screen Negative, Crossmatch (AHG) See Detail 11/19/24 19:07: Hgb 6.6 L*, Hct 20.3 L*, Troponin I < 0.01 11/20/24 00:03: Hgb 8.0 L D, Hct 24.6 L, Troponin I < 0.01 11/20/24 04:17: POC Glucose 94 11/20/24 04:18: WBC 10.3 D, RBC 2.38 L, Hgb 6.9 L, Hct 20.8 L*, MCV 87.4, MCH 29.0, MCHC 33.2, RDW 14.6, Plt Count 176, MPV 11.7 H, Neut % (Auto) 65.2, Lymph % (Auto) 26.1, [place] % (Auto) 5.9, Eos % (Auto) 2.2, Baso % (Auto) 0.3, Neut # (Auto) 6.7, Lymph # (Auto) 2.7, [place] # (Auto) 0.6, Eos # (Auto) 0.2, Baso # (Auto) 0.0 I & O for Labs for Last 24 Hours: Intake & Output 11/17/24 11/18/24 11/19/24 11/20/24 11:59 11:59 11:59 11:59 Intake Total 250 / 250 Output Total 0 / 0 Balance 250 / 250 Weight 240 lb Constitutional: Present no acute distress Comment:: She looks pale. Head: Present atraumatic Neck: Present normal inspection Respiratory: Present normal respiratory effort; Absent accessory muscle use Cardiac: Present Reg Rate and Rhythm Rectal (female): Present deferred (female): Present deferred Assessment and Plan *Assessment and plan (1) Menorrhagia: Status: Acute Qualifiers: Menorrhagia type: with irregular cycle Qualified Code(s): N92.1 - Excessive and frequent menstruation with irregular cycle Category: Medical Code(s): N92.0 - Excessive and frequent menstruation with regular cycle (2) Anemia associated with acute blood loss: Status: Acute Category: Medical Code(s): D62 - Acute posthemorrhagic anemia (3) Polycystic bilateral ovaries: Status: Acute Category: Medical Code(s): E28.2 - Polycystic ovarian syndrome Plan 1. She has continued to bleed overnight despite IV estrogen and tranexamic acid. 2. Her blood pressure has been slightly low after the tranexamic acid and she is receiving IV fluids. A common side effect of this medication is low blood pressure. 3. Repeat H&H showed that her hemoglobin had dropped from 8-6.9. As result of this we will go ahead and give her another unit of blood. 4. We will see how she does over the next couple of hours after receiving the tranexamic acid. 5. If she continues to have the same amount of bleeding we will consider a D&C along with a Jaramillo bulb in the uterine cavity.
--- NOTE | 2024-11-20 05:10 | PC.NURSE ---
Dr. Britton at bedside, reviewing VS. MD states to continue with plan of care of transfusion, promote patient rest, and resume IV LR infusion at 125 mL/hr once blood transfusion complete.
--- NOTE | 2024-11-20 06:05 | PC.NURSE ---
Patient pad changed while lying in bed. 1 pad weighing 113 g = 90 mL. No clots or free throw noted. Patient continues to deny pain at this time
--- NOTE | 2024-11-20 08:00 | PC.NURSE ---
Pt. up to bathroom changed pad and Chux pad on bed changed total weight at 307g = 204ml of blood. Total QBL at 723ml. 300ml of dark red noted in hat in toilet. Pt. reports she is unsure if she voided or not. Nurse v/u. Nurse reports Dr. Britton will be rounding soon. Pt. v/u and denies further needs.
[2024-11-20] MEDS: LACTATED RINGERS 1000ML 1,000 ML 125 ML IV (08:04)
[2024-11-20 08:21] LABS: Hematocrit 24.2 % (37.0-47.0)
[2024-11-20 08:27] LABS: Hemoglobin 8.1 g/dL (12.2-16.2)
--- NOTE | 2024-11-20 08:37 | P.PN_ITS ---
Subjective *Date: 11/20/24 *Time: 08:37 Interval history: She is feeling a little better this morning. She has received IV estrogen as well as IV tranexamic acid. Despite this she continues to have bleeding. She bled about 500 cc overnight and they just changed another pad where she had lost 300 cc. As result of this I have elected to take her for a D&C. We will also try and insert a Jaramillo catheter to provide tamponade as well. Medical Exam Vital signs and Labs for Last 24 Hours: Vital Signs Temp Pulse Pulse Resp BP BP Pulse Ox 11/20/24 06:48 98.3 F 97 H 24 108/49 L 95 11/20/24 06:26 11/20/24 06:26 98.4 F 89 22 93/45 L 97 11/20/24 06:02 98.5 F 96 H 24 99/45 L 94 L 11/20/24 05:47 100.0 F H 95 H 28 H 96/50 L 95 11/20/24 05:32 11/20/24 05:32 99.5 F 97 H 24 93/54 L 96 11/20/24 05:17 98.9 F 92 H 24 84/43 L 94 L 11/20/24 05:12 98.3 F 97 H 20 95/45 L 98 11/20/24 05:07 98.3 F 98 H 28 H 88/55 L 94 L 11/20/24 05:02 98.7 F 96 H 24 85/55 L 92 L 11/20/24 04:53 98.8 F 95 H 16 102/52 L 93 L 11/20/24 04:43 98/54 L 11/20/24 04:38 96/53 L 11/20/24 04:33 92/47 L 11/20/24 04:28 84 85/49 L 100 11/20/24 04:23 82 81/47 L 100 11/20/24 04:23 11/20/24 04:15 82 91/44 L 100 11/20/24 04:10 98.3 F 84 22 94/35 L 100 11/20/24 04:05 93 H 96/36 L 100 11/20/24 04:03 24 11/20/24 04:00 89 24 104/33 L 100 11/20/24 03:38 11/20/24 02:39 07/22/25 01:37 11/20/24 00:30 98.8 F 87 16 109/56 L 98 11/20/24 00:30 11/19/24 23:42 98.2 F 89 17 111/60 99 11/19/24 23:35 11/19/24 22:42 98.1 F 79 18 106/56 L 99 11/19/24 22:28 11/19/24 22:01 98.3 F 87 16 111/57 L 100 11/19/24 21:46 97.9 F 88 17 118/62 100 11/19/24 21:31 11/19/24 21:31 97.8 F 83 18 114/49 L 100 11/19/24 21:16 98.1 F 82 16 100/51 L 99 11/19/24 21:11 98.3 F 83 16 108/52 L 99 11/19/24 21:06 98.1 F 88 17 105/54 L 100 11/19/24 21:01 98.1 F 87 16 100/50 L 99 11/19/24 20:51 98.1 F 90 16 113/44 L 99 11/19/24 20:30 11/19/24 20:25 98.0 F 82 17 107/54 L 100 11/19/24 20:25 11/19/24 19:28 11/19/24 18:57 11/19/24 18:02 97.9 F 72 18 141/78 H 11/19/24 17:46 97.9 F 81 20 141/68 H 100 11/19/24 17:31 98.2 F 72 18 142/62 H 99 11/19/24 17:16 98.4 F 99 H 20 140/68 100 11/19/24 17:06 98.1 F 77 16 114/54 L 100 11/19/24 17:01 98.6 F 83 18 111/58 L 100 11/19/24 16:56 98.4 F 76 20 122/66 100 11/19/24 16:51 98.1 F 82 16 127/68 100 11/19/24 16:44 98.7 F 87 16 125/69 99 11/19/24 15:45 91 H 123/92 H 100 11/19/24 15:30 104 H 123/92 H 100 11/19/24 15:08 99.0 F 89 20 154/96 H 98 11/19/24 15:00 87 154/96 H 100 O2 Del Method 11/20/24 06:48 11/20/24 06:26 Room Air 11/20/24 06:26 Room Air 11/20/24 06:02 11/20/24 05:47 11/20/24 05:32 Room Air 11/20/24 05:32 11/20/24 05:17 11/20/24 05:12 11/20/24 05:07 11/20/24 05:02 11/20/24 04:53 11/20/24 04:43 11/20/24 04:38 11/20/24 04:33 11/20/24 04:28 Room Air 11/20/24 04:23 Room Air 11/20/24 04:23 Room Air 11/20/24 04:15 Room Air 11/20/24 04:10 Room Air 11/20/24 04:05 Room Air 11/20/24 04:03 Room Air 11/20/24 04:00 Room Air 11/20/24 03:38 Room Air 11/20/24 02:39 Room Air 11/20/24 01:37 Room Air 11/20/24 00:30 Room Air 11/20/24 00:30 Room Air 11/19/24 23:42 11/19/24 23:35 Room Air 11/19/24 22:42 11/19/24 22:28 Room Air 11/19/24 22:01 11/19/24 21:46 11/19/24 21:31 Room Air 11/19/24 21:31 11/19/24 21:16 11/19/24 21:11 11/19/24 21:06 11/19/24 21:01 11/19/24 20:51 11/19/24 20:30 Room Air 11/19/24 20:25 Room Air 11/19/24 20:25 Room Air 11/19/24 19:28 Room Air 11/19/24 18:57 Room Air 11/19/24 18:02 Room Air 11/19/24 17:46 11/19/24 17:31 11/19/24 17:16 11/19/24 17:06 11/19/24 17:01 11/19/24 16:56 11/19/24 16:51 11/19/24 16:44 11/19/24 15:45 11/19/24 15:30 11/19/24 15:08 Room Air 11/19/24 15:00 Intake and Output 11/19/24 11/20/24 11/20/24 19:59 03:59 11:59 Intake Total 0 / 500 250 / 500 250 / 500 Output Total 0 / 0 Balance 0 / 500 250 / 500 250 / 500 Intake: Intake (Blood Product) Amt 0 / 500 250 / 500 250 / 500 Red Blood Cells Unit 0 / 0 [id number] Red Blood Cells Unit 250 / 250 [id number] Red Blood Cells Unit 250 / 250 [id number] Output: Output, Urine Amount 0 / 0 Other: Number of Unmeasured Voids 1 Weight 240 lb Patient Weight 11/20/24 11:59 Weight 240 lb Laboratory Results - last 24 hr 11/19/24 14:46: Urine Color Yellow, Urine Appearance Clear, Urine pH 5.5, Ur Specific [place] 1.025, Urine Protein Trace, Urine Glucose (UA) Negative, Urine Ketones Negative, Urine Blood 3+ A, Urine Nitrate Positive A, Urine Bilirubin Negative, Urine Urobilinogen 1.0, Ur Leukocyte Esterase Trace, Urine RBC Tntc, Urine WBC Occasional, Ur Squamous Epith Cells 3-5, Urine Bacteria 1+ 11/19/24 15:05: WBC 6.4, RBC 2.23 L, Hgb 6.6 L*, Hct 20.0 L*, MCV 89.7, MCH 29.6, MCHC 33.0, RDW 13.8, Plt Count 220, MPV 11.9 H, Neut % (Auto) 60.1, Lymph % (Auto) 31.0, [place] % (Auto) 5.5, Eos % (Auto) 2.7, Baso % (Auto) 0.2, Neut # (Auto) 3.8, Lymph # (Auto) 2.0, [place] # (Auto) 0.4, Eos # (Auto) 0.2, Baso # (Auto) 0.0, PT 10.4, INR 0.93, APTT 22.1 L, Sodium 138, Potassium 4.0, Chloride 109 H, Carbon Dioxide 24, Anion Gap 9.0, BUN 11, Creatinine 0.50 L, Estimated Creat Clear 296, Estimated GFR 150, Est GFR ( Amer) 182, Glucose 96, Calcium 9.1, Magnesium 2.0, Total Bilirubin 0.4, AST 28, ALT 16, Alkaline Phosphatase 68, Troponin I < 0.01, NT-Pro-B Natriuret Pep 176 H, Total Protein 6.6, Albumin 3.9, Globulin 2.7, Albumin/Globulin Ratio 1.4, Lipase 99, Serum HCG, Qual Negative, HCV Ab YULI w/Rflx PCR Qn Negative, HIV Ag/Ab Combo Qual Nega tive, Blood Type A Positive, Antibody Screen Negative, Crossmatch (AHG) See Detail 11/19/24 19:07: Hgb 6.6 L*, Hct 20.3 L*, Troponin I < 0.01 11/20/24 00:03: Hgb 8.0 L D, Hct 24.6 L, Troponin I < 0.01 11/20/24 04:17: POC Glucose 94 11/20/24 04:18: WBC 10.3 D, RBC 2.38 L, Hgb 6.9 L, Hct 20.8 L*, MCV 87.4, MCH 29.0, MCHC 33.2, RDW 14.6, Plt Count 176, MPV 11.7 H, Neut % (Auto) 65.2, Lymph % (Auto) 26.1, [place] % (Auto) 5.9, Eos % (Auto) 2.2, Baso % (Auto) 0.3, Neut # (Auto) 6.7, Lymph # (Auto) 2.7, [place] # (Auto) 0.6, Eos # (Auto) 0.2, Baso # (Auto) 0.0 11/20/24 08:08: Hgb 8.1 L D, Hct 24.2 L I & O for Labs for Last 24 Hours: Intake & Output 11/17/24 11/18/24 11/19/24 11/20/24 11:59 11:59 11:59 11:59 Intake Total 500 / 500 Output Total 0 / 0 Balance 500 / 500 Weight 240 lb Head: Present atraumatic Respiratory: Present normal respiratory effort; Absent accessory muscle use Cardiac: Present Reg Rate and Rhythm Rectal (female): Present deferred (female): Present deferred Assessment and Plan *Assessment and plan (1) Polycystic bilateral ovaries: Status: Acute Category: Medical Code(s): E28.2 - Polycystic ovarian syndrome (2) Menorrhagia: Status: Acute Qualifiers: Menorrhagia type: with irregular cycle Qualified Code(s): N92.1 - Excessive and frequent menstruation with irregular cycle Category: Medical Code(s): N92.0 - Excessive and frequent menstruation with regular cycle (3) Anemia associated with acute blood loss: Status: Acute Category: Medical Code(s): D62 - Acute posthemorrhagic anemia (4) Vaginal bleeding: Status: Acute Category: Medical Code(s): N93.9 - Abnormal uterine and vaginal bleeding, unspecified Plan 1. She continues to have heavy vaginal bleeding despite the fact that she received IV estrogen and tranexamic acid. 2. We will go ahead with a D&C for the heavy bleeding. We will also use a Jaramillo catheter to provide tamponade inside the uterus. 3. We discussed the risks of surgery that includes bleeding, infection, injury to adjacent structures. We discussed the rare risk of perforation. All questions were answered and consents were signed.
--- NOTE | 2024-11-20 08:57 | PC.NURSE ---
Pt. off unit to OR, via bed, accompanied by Pre-op Staff x2.
--- NOTE | 2024-11-20 09:04 | P.PNANES_ITS ---
[facility] Disclaimer: The information contained in this section may have been updated after the patient was seen, as this information can be updated by other users. Medical History Encounter for pre-operative respiratory clearance No significant past medical history No significant past medical history Hypertension Diabetes mellitus, type 2 Surgical History (Updated 11/19/24 @ 20:51 by Kimberli Owens RN) H/O gastric sleeve Family History Family history of hypertension Family history of diabetes mellitus type II Social History (Updated 11/19/24 @ 20:51 by Kimberli Owens RN) Smoking Status: Never smoker alcohol intake: current alcohol intake frequency: holidays/special occasions only substance use type: denies use current occupational status: employed Travel in the last 8 weeks?: None [facility] Anesthesia Checklist Patient Identification Patient Identification: Verbal (Name & ) Structural Data Admitted From: Inpatient Planned Operative Procedure/s: d/e Consent for Planned Operative Procedure(s) Verified: Yes NPO Status Verified Time NPO: 00:00 Additional verifications Anesthesia Reactions: No Hx Blood Transfusions: No Blood Transfusion Reaction: No Airway Assessment Mallampati Score:: Class II C-Spine Mobility Assessed: Yes TMJ Mobility Assessed: Yes Dentition: Good Dentition Neurological Assessment Level of Consciousness: Awake, Alert and Appropriate Anesthesia Plan Anesthesia Risk discussed: Yes Anesthesia Plan: Verified ASA Class: I Anesthesia Type: General
--- NOTE | 2024-11-20 09:54 | P.PNANES_ITS ---
[facility] Anesthesia Record Part I Anesthesia Record I Intake, IV Amount: 400 Hydration: Adequate Estimated blood loss (mL): 25 Urine output (mL): 0 Blood Products used (#): none Blood Pressure: 131/76 SaO2: 94 Pulse Rate: 116 Airway Patency: Patent Respiratory Rate: 20 Temperature: 97.0 F Patient is:: Drowsy and Stable Stable to PACU at:: 09:48
[2024-11-20] MEDS: HYDROMORPHONE 2MG/ML SYRINGE 0.5 MG IV ×2 (10:00→10:05)
--- NOTE | 2024-11-20 10:25 | PC.NURSE ---
Pt. back from OR via bed. Accompanied by BUSINESS INFORMATION CONSULTANT x1.
--- NOTE | 2024-11-20 10:27 | SUR.PHASEI ---
1018- detailed report given to jeremy kelley in ob. 1020- Pt left in the care of jeremy gilmore in pt room. VSS, dressings CDI, family at bedside, call light in reach.
--- NOTE | 2024-11-20 11:42 | EXP.OP.NOTE ---
Date of procedure: 11/20/24 Pre-op Diagnosis:: Heavy menstrual bleeding Post-op Diagnosis:: Heavy menstrual bleeding Procedure performed:: Dilation and curettage Surgeon:: Andre Britton MD TAXICAB STARTER:: Junaid Sanford Anesthesia: LMA Estimated blood loss (mL): 25 Clinical Note:: She is a 24-year-old 0 para 0 lady who complains of extremely heavy bleeding. She just returned from [place] and had started bleeding there in early September. She has been bleeding daily since then. She had a hemoglobin there that was 7.5. She came to the ER here and had a hemoglobin of 6.6. She received a transfusion. Subsequently she was admitted overnight and has received 2 more transfusions since then. She has continued to have heavy bleeding we gave her both IV estrogen as well as tranexamic acid. Despite this she continued to have heavy bleeding and as a result of that she was offered D&C. Operative findings:: She had an anteverted small uterus. The cervix was dilated to approximately 1 cm. There was a small amount of tissue at the time of her D&C. Operative note:: She was taken the operating room where LMA anesthesia was found be adequate. She was prepped and draped in normal sterile fashion lithotomy position. Weighted speculum placed in the vagina and the anterior lip of the cervix was grasped with a tenaculum. I then performed a gentle curettage with a medium curette. I attempted to place a Jaramillo balloon within the endometrial cavity for hemostasis but since the cervix was slightly dilated it did not stay in place. At the end of the procedure she was not bleeding at all so we elected to leave the Jaramillo bulb out. She tolerated the procedure well and was taken to the recovery room in excellent condition. All sponge and instrument counts were correct. The estimated blood loss intraoperatively was less than 25 cc. Condition: stable Disposition: PACU Specimens:: Endometrial curettings Complications:: None
--- NOTE | 2024-11-20 11:51 | EXP.ANES.II ---
[facility] Anesthesia Record Part II Anesthesia Record Part II Discharge Time: 10:18 Destination: Obstetric PACU nurse assessment reviewed?: Yes Patient Condition:: Good Anesthesia Complications:: None Swallowing reflex intact?: Yes Airway Patency: Patent Cyanosis?: No Blood Pressure: 128/74 SaO2: 95 Respiratory Rate: 20 Pulse Rate: 95 Temperature: 97 F Mental Status: Alert & Oriented Pain level:: 0 Nausea and/or vomitting:: None Intake, IV Amount: 0 Hydration: Adequate
[2024-11-20] MEDS: ACETAMINOPHEN 500MG TAB 1000 MG PO (12:30)
--- NOTE | 2024-11-20 13:00 | PC.NURSE ---
Pt. up to bathroom, tolerated well. Pad changed. Scant amount of light pink to red discharge noted on pad.
[2024-11-20 15:00] LABS: Hematocrit 22.8 % (37.0-47.0); Hemoglobin 7.7 g/dL (12.2-16.2)
--- NOTE | 2024-11-20 15:25 | PC.NURSE ---
Pt. up to bathroom. [place] pad changed. Scant amount of dried blood noted on pad. Small amount of pink tinged discharge noted when wiping. Nurse educated pt. it is normal to have light bleeding for a few days afterward. Pt. v/u.
--- NOTE | 2024-11-20 17:25 | EXP.DC.SUM ---
General Admission date:: 11/19/24 Discharge date: 11/20/24 HPI HPI HPI: Dorie Kim is a 24-year-old female with past medical history of previous miscarriage, hypertension, diabetes mellitus, gastric sleeve surgery who presents to the emergency department for complaints of vaginal bleeding and lower abdominal cramping. Patient states that she was recently in [place] and has had 3 weeks of heavy vaginal bleeding. She states that initially, she had a large clot from her vagina and the size of her hand and that she is continuing to have smaller blood clots from her vagina. She is not sure if she is having blood in her urine but does have blood in the toilet bowl when she pees. She reports cramping abdominal pain in the lower abdomen. She denies any possibility of being , although she states that this feels similar to when she had miscarriages in the past. She states that while she was in [place], she was told that she was anemic with a . blood count of 7.5 She was put on ibuprofen and another medication with minimal relief of her symptoms. She does not currently have an [employer] physician. She states that her periods prior to this were not heavy but lasted 2 weeks and occurred every month, however she did not have a period last month Hospital Course Hospital Course Hospital Course: We admitted her for observation and she received a total of 3 units of blood. We started her on IV estrogen and despite this she continued to have heavy bleeding. I then gave her tranexamic acid which caused her blood pressure to drop slightly and really she had no improvement in her bleeding. She continued to soak through pads. As result of that I elected to perform a D&C. My plan was initially to perform the D&C and then insert a Jaramillo catheter to provide tamponade to the lining of the uterus. However the catheter did not stay inside because her cervix was 1 cm dilated. After the procedure was performed she had no further episodes of bleeding. Her post operative hemoglobin is 7.7. She is just spotting now post D&C. We will plan to send her home today and we will start her on the control pill which she will start tomorrow. We will also make sure she starts iron tablets twice daily for the next 6 to 8 weeks. Her condition on discharge is stable and improved. Exam Data for Last 24 hours Vital signs and Labs for Last 24 Hours: Temp Pulse Resp BP Pulse Ox O2 Del Method 98.1 F 84 16 117/74 100 Room Air 11/20/24 16:25 11/20/24 16:25 11/20/24 16:25 11/20/24 16:25 11/20/24 16:25 11/20/24 16:25 Laboratory Results - last 24 hr 11/19/24 15:05: Blood Type A Positive, Antibody Screen Negative, Crossmatch ([facility]) See Detail 11/19/24 19:07: Hgb 6.6 L*, Hct 20.3 L*, Troponin I < 0.01 11/20/24 00:03: Hgb 8.0 L D, Hct 24.6 L, Troponin I < 0.01 11/20/24 04:17: POC Glucose 94 11/20/24 04:18: WBC 10.3 D, RBC 2.38 L, Hgb 6.9 L, Hct 20.8 L*, MCV 87.4, MCH 29.0, MCHC 33.2, RDW 14.6, Plt Count 176, MPV 11.7 H, Neut % (Auto) 65.2, Lymph % (Auto) 26.1, Victoria % (Auto) 5.9, Eos % (Auto) 2.2, Baso % (Auto) 0.3, Neut # (Auto) 6.7, Lymph # (Auto) 2.7, Victoria # (Auto) 0.6, Eos # (Auto) 0.2, Baso # (Auto) 0.0 11/20/24 08:08: Hgb 8.1 L D, Hct 24.2 L 11/20/24 14:33: Hgb 7.7 L, Hct 22.8 L I & O for Last 24 hours: Intake & Output 11/18/24 11/19/24 11/20/24 11/21/24 11:59 11:59 11:59 11:59 Intake Total 900 / 900 Output Total 0 / 0 350 / 350 Balance 900 / 900 -350 / -350 Weight 240 lb Constitutional Constitutional: no acute distress *Routine HEENT Exam Head: Present normocephalic *Routine Respiratory Exam Respiratory: Present normal respiratory effort; Absent accessory muscle use Results Data Completed and Pending Labs on day of discharge: Labs from last 24 hours 11/20/24 11/20/24 11/20/24 14:33 08:08 04:18 WBC 10.3 D RBC 2.38 L Hgb 7.7 L 8.1 L D 6.9 L Hct 22.8 L 24.2 L 20.8 L* MCV 87.4 MCH 29.0 MCHC 33.2 RDW 14.6 Plt Count 176 MPV 11.7 H Neut % (Auto) 65.2 Lymph % (Auto) 26.1 Victoria % (Auto) 5.9 Eos % (Auto) 2.2 Baso % (Auto) 0.3 Neut # (Auto) 6.7 Lymph # (Auto) 2.7 Victoria # (Auto) 0.6 Eos # (Auto) 0.2 Baso # (Auto) 0.0 POC Glucose Troponin I Blood Type Antibody Screen Crossmatch ([facility] [place]) 11/20/24 11/20/24 11/19/24 04:17 00:03 19:07 WBC RBC Hgb 8.0 L D 6.6 L* Hct 24.6 L 20.3 L* MCV MCH MCHC RDW Plt Count MPV Neut % (Auto) Lymph % (Auto) Victoria % (Auto) Eos % (Auto) Baso % (Auto) Neut # (Auto) Lymph # (Auto) Victoria # (Auto) Eos # (Auto) Baso # (Auto) POC Glucose 94 Troponin I < 0.01 < 0.01 Blood Type Antibody Screen Crossmatch ([facility] [place]) 11/19/24 15:05 WBC RBC Hgb Hct MCV MCH MCHC RDW Plt Count MPV Neut % (Auto) Lymph % (Auto) Victoria % (Auto) Eos % (Auto) Baso % (Auto) Neut # (Auto) Lymph # (Auto) Victoria # (Auto) Eos # (Auto) Baso # (Auto) POC Glucose Troponin I Blood Type A Positive Antibody Screen Negative Crossmatch ([facility] [place]) See Detail DS: Diagnosis Discharge Diagnosis (1) Polycystic bilateral ovaries: Status: Acute Code(s): E28.2 - Polycystic ovarian syndrome (2) Menorrhagia: Status: Acute Code(s): N92.0 - Excessive and frequent menstruation with regular cycle Qualifiers: Menorrhagia type: with irregular cycle Qualified Code(s): N92.1 - Excessive and frequent menstruation with irregular cycle (3) Anemia associated with acute blood loss: Status: Acute Code(s): D62 - Acute posthemorrhagic anemia (4) Vaginal bleeding: Status: Acute Code(s): N93.9 - Abnormal uterine and vaginal bleeding, unspecified Meds Home Medications and Allergies Home Medications ?Medication ?Instructions ?Recorded ?Confirmed ?Type metformin 850 mg tablet 850 mg PO DAILY Diabetes 01/09/21 11/20/24 History valsartan 80 mg tablet 80 mg PO DAILY Hypertension 10/14/22 11/20/24 History cholecalciferol (vitamin D3) 1,250 1,250 mcg PO WEEKLY 07/13/23 11/20/24 History mcg (50,000 unit) capsule multivitamin 1 tab PO DAILY 11/20/24 11/20/24 History norgestimate 0.25 mg-ethinyl 1 tab PO DAILY #28 tabs 11/20/24 Rx estradiol 0.035 mg tablet (Estarylla) New Prescriptions to Start Prescriptions: norgestimate-ethinyl estradiol [Estarylla] Andre Britton Allergies Allergy/AdvReac Type Severity Reaction Status Date / Time No Known Allergies Allergy Verified 11/19/24 21:29 Discharge Plan Disposition Patient Disposition: Home, Self-Care Follow up Plan Prescriptions/Medication Reconciliation: New norgestimate-ethinyl estradiol [Estarylla] 0.25-0.035 mg tablet 1 tab PO DAILY Qty: 28 11RF Continued metformin 850 mg tablet 850 mg PO DAILY cholecalciferol (vitamin D3) 1,250 mcg (50,000 unit) capsule 1,250 mcg PO WEEKLY Patient Comments: TAKE 1 CAPSULE BY MOUTH ONCE A WEEK valsartan 80 mg tablet 80 mg PO DAILY Patient Comments: Patient no longer taking multivitamin Tablet 1 tab PO DAILY Problem Reconciliation Problems Reviewed?: Yes Patient Discharge Instructions ACTIVITY: Continue current activity DIET: continue same diet Patient Instructions: DI for a Dilation and Curettage, DI for Menorrhagia Print Language: Malagasy Providers Primary Care Provider: Provider,Referral Admit Provider: Andre Britton Attending Provider: Andre Britton
--- NOTE | 2024-11-20 18:10 | PC.NURSE ---
Discharge education provided. Questions encouraged and answered. Pt. v/u.
== END 2024-11-20 18:17 | disposition home or self-care (01) ==
LOC: ER 17:19 → OB 18:36
PROVIDERS: Student in an Organized Health Care Education/Training Program; Admitting Provider Nurse Practitioner Obstetrics & Gynecology; Emergency Provider Emergency Medicine; Visit Provider Nurse Practitioner Obstetrics & Gynecology
PROC: (CPT 58120; principal; 2024-11-20 09:00)
DX: N92.1 Excessive and frequent menstruation with irregular cycle (principal); E28.2 Polycystic ovarian syndrome; E66.9 Obesity, unspecified; D62 Acute posthemorrhagic anemia; E11.9 Type 2 diabetes mellitus without complications; I10 Essential (primary) hypertension; Z98.84 Bariatric surgery status; Z68.36 Body mass index [BMI] 36.0-36.9, adult; Z79.84 Long term (current) use of oral hypoglycemic drugs; Z79.899 Other long term (current) drug therapy
CPT/HCPCS: 58120; 36415; 36430; 71045; 76830; 80053; 81001; 82962; 83690; 83735; 83880; 84484; 84703; 85014; 85018; 85025; 85610; 85730; 86803; 86850; 87086; 87389; 93005; 96361; 96365; 96375; 96376; 99291; G0378; J0690; J0696; J1100; J1171; J1410; J1885; J2003; J2250; J2405; J2704; J3010; J7050; J7120; P9016

== ENCOUNTER 2024-11-23 00:37 | Emergency (ER) | payer SELFPAY ==
[2024-11-23 00:39] VITALS: BP 121/69; PULSE 81; RESP 16; TEMP 37.1; O2SAT 99; BMI 36.5
--- NOTE | 2024-11-23 00:39 | ED_ITS ---
Discharge Plan Disposition Patient Disposition: Home, Self-Care Condition: Good Prescriptions Prescriptions: No Action metformin 850 mg tablet 850 mg PO DAILY cholecalciferol (vitamin D3) 1,250 mcg (50,000 unit) capsule 1,250 mcg PO WEEKLY Patient Comments: TAKE 1 CAPSULE BY MOUTH ONCE A WEEK valsartan 80 mg tablet 80 mg PO DAILY Patient Comments: Patient no longer taking multivitamin Tablet 1 tab PO DAILY norgestimate-ethinyl estradiol [Estarylla] 0.25-0.035 mg tablet 1 tab PO DAILY Qty: 28 11RF Referrals Follow up/Referrals: Provider,Referral, MD [Primary Care Provider, Medical] - See instructions Activity Restrictions/Add. Instructions Additional Instructions/Restrictions: Please follow-up with your primary care provider. Please return to the emergency department if you develop any new or worsening symptoms or become concerned for your health. Clinical Impressions Clinical Impression: Fatigue, Headache, Anemia Print Language Print Language: Lithuanian Discharge ED Provider: Kishor Lino General Adult HPI General Chief complaint: Shortness of Breath/Dyspnea Stated complaint: anemia, shortness of breath, headache, nausea Time Seen by Provider: 11/23/24 00:39 History of Present Illness HPI narrative: 24-year-old female presents for headache and fatigue. She had very severe vaginal bleeding that required a D&C and 3 units transfusion 3 days ago. She was here for that procedure. Prior to that she had been having vaginal bleeding for a while. Her lowest hemoglobin was 6.6 while here. She reports that since she was discharged she has not had any vaginal bleeding, fever, abdominal pain. Today though she has been feeling much more fatigued and has had a headache. Related Data Home Medications ?Medication ?Instructions ?Recorded ?Confirmed metformin 850 mg tablet 850 mg PO DAILY Diabetes 02/1911/23/24 valsartan 80 mg tablet 80 mg PO DAILY Hypertension 10/14/22 11/23/24 cholecalciferol (vitamin D3) 1,250 1,250 mcg PO WEEKLY 07/13/23 11/23/24 mcg (50,000 unit) capsule multivitamin 1 tab PO DAILY 11/20/2410/31 Previous Rx's ?Medication ?Instructions ?Recorded norgestimate 0.25 mg-ethinyl 1 tab PO DAILY #28 tabs 0 11/20/24 estradiol 0.035 mg tablet (Estarylla) Allergies Allergy/AdvReac Type Severity Reaction Status Date / Time No Known Allergies Allergy Verified 11/19/24 21:29 [facility] Disclaimer: The information contained in this section may have been updated after the patient was seen, as this information can be updated by other users. Medical History (Updated 11/23/24 @ 01:50 by Kishor Lino MD) Encounter for pre-operative respiratory clearance No significant past medical history No significant past medical history Hypertension Diabetes mellitus, type 2 Surgical History (Updated 11/19/24 @ 20:51 by Kimberli Owens RN) H/O gastric sleeve Family History Family history of hypertension Family history of diabetes mellitus type II Social History (Updated 11/20/24 @ 09:05 by Junaid Sanford CRNA) Smoking Status: Never smoker alcohol intake: current alcohol intake frequency: holidays/special occasions only substance use type: denies use current occupational status: employed Travel in the last 8 weeks?: None Have you lived/traveled outside [place] in past 30 days?: No Contact w/someone who lives/traveled outside [place] past 30 days?: No Exposure to someone with infectious disease in past 14 days?: No Do you have a fever (greater than 100.4 F or 38 C)?: No Have you tested positive for COVID-19?: No Exposed to someone with COVID-19 in past 14 days?: No Do you have a sore throat?: No Do you have a cough?: No Do you have any weakness?: No Do you have any diarrhea?: No Are you experiencing any unusual bleeding?: No Do you have any muscle aches/pain?: No Do you have any abdominal pain?: No Are you experiencing loss of taste or smell?: No Other Medical History Have you received the Flu Vaccine for this season: No Have you received the Pneumonia Vaccine: No ROS Obtained: Yes All systems reviewed & no additional complaints except as documented Physical Exam General General appearance: alert and in no apparent distress Head Head exam: atraumatic and normocephalic Eye Eye exam: Present normal appearance, PERRL and EOMI ENT ENT exam: Present normal oropharynx and normal external ear exam Neck Neck exam: Present normal inspection and full ROM Chest Chest inspection: Present normal inspection and symmetric chest wall rise; Absent tenderness Respiratory Respiratory exam: Present normal lung sounds bilaterally; Absent respiratory distress Cardiovascular Cardiovascular exam: Present regular rate and normal rhythm Abdominal Exam Abdominal exam: Present soft; Absent distention, tenderness or guarding Extremities Exam Extremities exam: Present normal inspection; Absent edema or joint swelling Back Exam Back exam: Present normal inspection; Absent tenderness Neurological Exam Neurological exam: Present alert and oriented X3; Absent motor sensory deficit Psychiatric Psychiatric exam: Present normal affect and normal mood Skin Skin exam: Present warm, dry and normal color Lymphatic Lymphatic Findings: no adenopathy Medical Decision Making Medical Records Medical records reviewed: Yes I reviewed the patient's medical records. Screening: Per USPSTF and CDC recommendations, given the prevalence of disease in our region, it is our hospital?s policy to screen for HIV and viral Hepatitis for all patients aged 18 and over and those with ongoing risk factors. Joaquin Inquiry Pt receiving controlled substance: No Joaquin was queried for this patient: No Vital Signs: 11/23/24 00:39 11/23/24 01:34 11/23/24 01:43 Temperature 98.8 F Temperature Source Oral Pulse Rate 85 86 Pulse Rate [Radial] 81 Respiratory Rate 16 16 16 Blood Pressure 103/63 L 107/55 L Blood Pressure [Left Arm] 121/69 Blood Pressure Mean 77 Blood Pressure Mean [Left Arm] 86 02 Sat by Pulse Oximetry 99 97 99 Oxygen Delivery Method Room Air 11/23/24 01:50 Temperature 98 F Temperature Source Pulse Rate 78 Pulse Rate [Radial] Respiratory Rate 16 Blood Pressure 107/55 L Blood Pressure [Left Arm] Blood Pressure Mean Blood Pressure Mean [Left Arm] 02 Sat by Pulse Oximetry Oxygen Delivery Method Lab Data Lab results reviewed: Yes I reviewed the patient's lab results. Lab Results 11/23/24 00:52: WBC 8.6, RBC 2.97 L, Hgb 8.4 L, Hct 25.9 L, MCV 87.2, MCH 28.3, MCHC 32.4, RDW 14.1, Plt Count 267 D, MPV 11.3 H, Neut % (Auto) 63.1, Lymph % (Auto) 29.7, Stevens % (Auto) 5.7, Eos % (Auto) 1.2, Baso % (Auto) 0.2, Neut # (Auto) 5.4, Lymph # (Auto) 2.6, Stevens # (Auto) 0.5, Eos # (Auto) 0.1, Baso # (Auto) 0.0, Sodium 135 L, Potassium 4.1, Chloride 102, Carbon Dioxide 28, Anion Gap 9.1, BUN 11, Creatinine 0.50 L, Estimated Creat Clear 296, Estimated GFR 150, Est GFR ( Amer) 182, Glucose 92, Calcium 9.3, Magnesium 2.3, Total Bilirubin < 0.1 L, AST 41 H, ALT 22, Alkaline Phosphatase 65, Total Protein 7.2, Albumin 3.6, Globulin 3.6 H, Albumin/Globulin Ratio 1.0 L, Blood Type A Positive, Antibody Screen Negative 11/23/24 00:52 11/23/24 00:52 Orders (Tests/Meds): ED MEDICATIONS Discontinued Medications Generic Name Dose Route Start Last Admin Trade Name Freq PRN Reason Stop Dose Admin Acetaminophen 1,000 mg 11/23/24 00:45 11/23/24 01:03 Acetaminophen 500mg Tab PO 11/23/24 00:46 1,000 mg ONCE ONE Administration Ketorolac Tromethamine 30 mg 11/23/24 00:45 11/23/24 01:03 Ketorolac 30mg/Ml Vial IV 11/23/24 00:46 30 mg ONCE ONE Administration Prochlorperazine Edisylate 10 mg 11/23/24 00:45 11/23/24 01:03 Prochlorperazine 10mg/2ml Vial IV 11/23/24 00:46 10 mg ONCE ONE Administration ORDERS Category Date Time Status Type and Screen Stat BBK 11/23/24 00:52 Completed CBC w/Auto Diff [Complete Blood Count Auto Diff] Stat Lab 11/23/24 00:52 Completed CMP [Comprehensive Metabolic Panel] Stat Lab 11/23/24 00:52 Completed MAG [Magnesium] Stat Lab 11/23/24 00:52 Completed Medical Decision Narrative: 24-year-old female with history of recent episode of severe vaginal bleeding requiring D&C and transfusion presents for headache and fatigue for the last few days, no more vaginal bleeding noted.. History was obtained via interactive discussion with patient, chart review. On arrival, patient is [afebrile, hemodynamically stable, satting appropriately, alert, oriented x4, GCS 15], moving all extremities spontaneously. Full physical exam performed and significant for no significant physical exam abnormalities Differential includes but is not limited to anemia, tension headache, migraine headache, electrolyte derangement. Patient was given Tylenol Toradol Compazine for symptomatic management and correction of underlying abnormalities. Workup initiated including CBC CMP type and screen mag. On re-evaluation, patient [remains afebrile, HD stable.] Laboratory workup independently interpreted by me and significant for hemoglobin 8.4, improved from 3 days ago. No significant electrolyte derangement normal renal function Given patient history, exam and workup, patient's presentation most likely represents tension headache, resistant fatigue from anemia. Transfusion was considered but deemed unnecessary given hemoglobin greater than 7 and normal vital signs. Patient discharged in stable condition with return precautions. Procedures Risk/Benefits of Procedure(s) Were Explained: Yes Critical Care Critical Care Time Critical Care Time: No
[2024-11-23] MEDS: KETOROLAC 30MG/ML VIAL 30 MG IV (01:03)
[2024-11-23] MEDS: ACETAMINOPHEN 500MG TAB 1000 MG PO (01:03)
[2024-11-23] MEDS: PROCHLORPERAZINE 10MG/2ML VIAL 10 MG IV (01:03)
[2024-11-23 01:13] LABS: Hematocrit 25.9 % (37.0-47.0); Hemoglobin 8.4 g/dL (12.2-16.2); Immature Granulocytes % 0.1 %; Mean Corpuscular HGB Conc 32.4 g/dL (31.8-35.4); Mean Corpuscular Hemoglobin 28.3 pg (27.0-31.2); Mean Corpuscular Volume 87.2 fl (81-99); Nucleated Red Blood Cells % 0 %; Platelet Count 267 K/mm3 (142-424); Red Blood Count 2.97 M/mm3 (4.20-5.40); Red Cell Distribution Width-SD 44.4 fL; White Blood Count 8.6 K/mm3 (4.8-10.8)
[2024-11-23 01:24] LABS: Albumin Level 3.6 g/dl (3.5-5.0); Chloride 102 mmol/L (98-107)
[2024-11-23 01:25] LABS: Potassium 4.1 mmoL/L (3.5-5.1); Sodium 135 mmol/L (136-145)
[2024-11-23 01:27] LABS: Blood Urea Nitrogen 11 mg/dl (7-17); Creatinine Clearance Estimated 296 mL/min (50-200); Creatinine,Serum 0.50 mg/dl (0.52-1.04); Estimated Glomerular Filt Rate 150 ml/min (>60); GFR (African American) 182 ML/MIN (>60)
[2024-11-23 01:28] LABS: Alanine Aminotransferase 22 U/L (12-78); Albumin/Globulin Ratio 1.0 (1.1-1.8); Alkaline Phosphatase 65 U/L (38-126); Anion Gap 9.1 mEq/L (5-15); Aspartate Amino Transferase 41 U/L (14-36); Calcium 9.3 mg/dl (8.4-10.2); Carbon Dioxide 28 mmol/L (22.0-30.0); Globulin 3.6 g/dL (1.3-3.2); Glucose 92 mg/dl (74-100); Total Protein,Serum 7.2 g/dl (6.3-8.2)
[2024-11-23 01:31] LABS: Bilirubin,Total < 0.1 mg/dl (0.2-1.3)
[2024-11-23 01:34] VITALS: BP 103/63; PULSE 85; RESP 16; O2SAT 97
[2024-11-23 01:37] LABS: Magnesium 2.3 mg/dl (1.6-2.3)
[2024-11-23 01:43] VITALS: BP 107/55; PULSE 86; RESP 16; O2SAT 99
[2024-11-23 01:50] VITALS: BP 107/55; PULSE 78; RESP 16; TEMP 36.6; O2SAT 100
== END 2024-11-23 01:57 | disposition home or self-care (01) ==
PROVIDERS: Emergency Provider Emergency Medicine
DX: G44.209 Tension-type headache, unspecified, not intractable (principal); D64.9 Anemia, unspecified; R53.83 Other fatigue
CPT/HCPCS: 80053; 83735; 85025; 86850; 96374; 96375; 99284; J0780; J1885